=== PATIENT | male | born 1950 | race Caucasian/White ===

== ENCOUNTER → 2016-07-27 | Outpatient (REF) | payer BC, MEDICARE ==
[~2016-07-27] MED LIST: ASPI325T PO; DOCU10ELUD PO; FURO20TA2 PO; LOSA50TA20 PO; METF850T PO; NORCOTAB PO; motrin
[2016-07-27 12:12] LABS: ALBUMIN 3.6 GM/DL (3.2-5.2); ALBUMIN/GLOBULIN RATIO 1.13 (1.00-1.93); ALKALINE PHOSPHATASE 61 U/L (45-117); ALT/SGPT 14 U/L (12-78); ANION GAP 9 MEQ/L (8-16); AST/SGOT 12 U/L (15-37); BILIRUBIN,TOTAL 0.6 MG/DL (0.2-1.0); BLOOD UREA NITROGEN 19 MG/DL (7-18); CALCIUM LEVEL 8.8 MG/DL (8.8-10.2); CARBON DIOXIDE LEVEL 28 MEQ/L (21-32); CHLORIDE LEVEL 104 MEQ/L (98-107); CHOLESTEROL LEVEL 137 MG/DL (<200); CREATININE FOR GFR 1.25 MG/DL (0.70-1.30); FREE T4 0.99 NG/DL (0.76-1.46); GLOMERULAR FILTRATION RATE > 60.0 (>49); GLUCOSE, FASTING 126 MG/DL (80-110); POTASSIUM SERUM 4.5 MEQ/L (3.5-5.1); SODIUM LEVEL 141 MEQ/L (136-145); TOTAL PROTEIN 6.8 GM/DL (6.4-8.2); TRIGLYCERIDES LEVEL 104 MG/DL (<150)
== END ==
LOC: M LABDRAW1 11:19
PROVIDERS: ATTEND Emergency Medicine
DX: I10 Essential (primary) hypertension (principal); E11.9 Type 2 diabetes mellitus without complications

== ENCOUNTER → 2016-09-13 | Outpatient (REF) | payer MEDICARE | LOC: M LAB REF 09:52 | PROVIDERS: ATTEND Physician Assistant | DX: R39.89 Other symptoms and signs involving the genitourinary system (principal) ==

== ENCOUNTER → 2016-09-21 | Day surgery (SDC) | payer MEDICARE ==
[~2016-09-21] MED LIST changes: +ACETAMINOPHEN 325 MG TAB PO PRN; +AcetaZOLAMIDE 500 MG ER CAP PO ONE; +BAYE1TAB PO; +BSS with VANC/TOB/EPI for EYE CASES IR ONE; +CYCLOPENTOLATE 2% OPHTH SOLN 2ML BTL OD ONE; +D5W/0.2% SODIUM CHLORIDE 1,000 ML IV SCH; +D5W/0.2% SODIUM CHLORIDE 250 ML IV ONE; +GLIM2TAB PO; +HEALON DUET (HEALON 10MG/ML 0.55ML & HEALON ENDOCOAT 30MG/ML 0.85ML) As Ordered ONE; +KETOROLAC 0.5% OPHTH SOLN OD ONE; +LASI20TA PO; +LIDOCAINE 1% SDV 5 ML VIAL As Ordered ONE; +LIDOCAINE 4% INJ 5 ML AMP OU ONE; +LOSA50TA21 PO; +METF1000 PO; +MIDAZOLAM INJ 2 MG/2 ML VIAL (J2250) As Ordered ONE; +MOXIFLOXACIN IN BSS 0.25MG/0.25ML INTRACAMERAL INJ (OR EYE ONLY)(J2280) As Ordered ONE; +OFLOXACIN 0.3 % (OCUFLOX) OPTH SOL 5ML OD ONE; +ONDANSETRON 4MG/2ML VIAL (J2405) IV PRN; +PHENYLEPHRINE 2.5% OPHTH SOL 2ML OD ONE; +POVIDONE-IODINE 5% OPHTH PREP SOL 30ML As Ordered ONE; +PROPARACAINE 0.5% OPHTH SOL 15ML OD PRN; +SMZ-800T PO; +TRIAMCINOLONE PRES FR 40 MG/ML 1ML(TRIESENCE)(OR EYE ONLY)(J3300 PER 1MG) As Ordered ONE; +TRIMETHOBENZAMIDE 300 MG CAP PO PRN; +TROPICAMIDE 1% OPHTH SOLN 2ML OD ONE; +fentaNYL 100 MCG/2 ML INJECTION (J3010) As Ordered ONE
[2016-09-21 11:45] VITALS: BP 118/74
== END | disposition home or self-care (01) ==
LOC: M SDC 09:12
PROVIDERS: ATTEND Ophthalmology
DX: H26.9 Unspecified cataract (principal); I10 Essential (primary) hypertension; E11.9 Type 2 diabetes mellitus without complications; E66.9 Obesity, unspecified; Z87.891 Personal history of nicotine dependence; Z79.82 Long term (current) use of aspirin; Z79.899 Other long term (current) drug therapy
CPT/HCPCS: 66984; 67515; J2250; J2280; J3010; J3300; V2632

== ENCOUNTER → 2016-09-30 | Day surgery (SDC) | payer MEDICARE ==
[~2016-09-30] VITALS: Ht 188 cm; Wt 126.6 kg
[~2016-09-30] MED LIST changes: -CYCLOPENTOLATE 2% OPHTH SOLN 2ML BTL OD ONE; +CYCLOPENTOLATE 2% OPHTH SOLN 2ML BTL OS ONE; -D5W/0.2% SODIUM CHLORIDE 1,000 ML IV SCH; -KETOROLAC 0.5% OPHTH SOLN OD ONE; +KETOROLAC 0.5% OPHTH SOLN OS ONE; +LR 1,000 ML IV SCH; -OFLOXACIN 0.3 % (OCUFLOX) OPTH SOL 5ML OD ONE; +OFLOXACIN 0.3 % (OCUFLOX) OPTH SOL 5ML OS ONE; -ONDANSETRON 4MG/2ML VIAL (J2405) IV PRN; -PHENYLEPHRINE 2.5% OPHTH SOL 2ML OD ONE; +PHENYLEPHRINE 2.5% OPHTH SOL 2ML OS ONE; -PROPARACAINE 0.5% OPHTH SOL 15ML OD PRN; +PROPARACAINE 0.5% OPHTH SOL 15ML OS PRN; -TROPICAMIDE 1% OPHTH SOLN 2ML OD ONE; +TROPICAMIDE 1% OPHTH SOLN 2ML OS ONE
[2016-09-30 10:45] VITALS: BP 123/74
== END | disposition home or self-care (01) ==
LOC: M SDC 08:00
PROVIDERS: ATTEND Ophthalmology
DX: H26.9 Unspecified cataract (principal); E11.40 Type 2 diabetes mellitus with diabetic neuropathy, unspecified; I10 Essential (primary) hypertension; E66.9 Obesity, unspecified; R60.0 Localized edema; I83.11 Varicose veins of right lower extremity with inflammation; M17.0 Bilateral primary osteoarthritis of knee; N52.9 Male erectile dysfunction, unspecified; E05.90 Thyrotoxicosis, unspecified without thyrotoxic crisis or storm; R31.9 Hematuria, unspecified; R20.2 Paresthesia of skin; L84 Corns and callosities; M20.40 Other hammer toe(s) (acquired), unspecified foot; B35.1 Tinea unguium; Z79.899 Other long term (current) drug therapy; Z79.82 Long term (current) use of aspirin; Z87.440 Personal history of urinary (tract) infections; Z87.891 Personal history of nicotine dependence
CPT/HCPCS: 66984; J2250; J2280; J3010; J3300; V2632

== ENCOUNTER → 2017-01-28 | Outpatient (REF) | payer MEDICARE ==
[~2017-01-28] MED LIST changes: -ACETAMINOPHEN 325 MG TAB PO PRN; -AcetaZOLAMIDE 500 MG ER CAP PO ONE; -BSS with VANC/TOB/EPI for EYE CASES IR ONE; -CYCLOPENTOLATE 2% OPHTH SOLN 2ML BTL OS ONE; -D5W/0.2% SODIUM CHLORIDE 250 ML IV ONE; -HEALON DUET (HEALON 10MG/ML 0.55ML & HEALON ENDOCOAT 30MG/ML 0.85ML) As Ordered ONE; -KETOROLAC 0.5% OPHTH SOLN OS ONE; -LIDOCAINE 1% SDV 5 ML VIAL As Ordered ONE; -LIDOCAINE 4% INJ 5 ML AMP OU ONE; -LOSA50TA21 PO; +LOSA50TA5 PO; -LR 1,000 ML IV SCH; -METF1000 PO; +METF10004 PO; -MIDAZOLAM INJ 2 MG/2 ML VIAL (J2250) As Ordered ONE; -MOXIFLOXACIN IN BSS 0.25MG/0.25ML INTRACAMERAL INJ (OR EYE ONLY)(J2280) As Ordered ONE; -OFLOXACIN 0.3 % (OCUFLOX) OPTH SOL 5ML OS ONE; -PHENYLEPHRINE 2.5% OPHTH SOL 2ML OS ONE; -POVIDONE-IODINE 5% OPHTH PREP SOL 30ML As Ordered ONE; -PROPARACAINE 0.5% OPHTH SOL 15ML OS PRN; -SMZ-800T PO; +SULF1TAB23 PO; -TRIAMCINOLONE PRES FR 40 MG/ML 1ML(TRIESENCE)(OR EYE ONLY)(J3300 PER 1MG) As Ordered ONE; -TRIMETHOBENZAMIDE 300 MG CAP PO PRN; -TROPICAMIDE 1% OPHTH SOLN 2ML OS ONE; -fentaNYL 100 MCG/2 ML INJECTION (J3010) As Ordered ONE
[2017-01-28 11:29] LABS: ALBUMIN 3.6 GM/DL (3.2-5.2); ALBUMIN/GLOBULIN RATIO 1.03 (1.00-1.93); BILIRUBIN,TOTAL 0.6 MG/DL (0.2-1.0); CALCIUM LEVEL 9.1 MG/DL (8.8-10.2); CREATININE FOR GFR 1.29 MG/DL (0.70-1.30); GLOMERULAR FILTRATION RATE 59.1 (>49); POTASSIUM SERUM 4.4 MEQ/L (3.5-5.1); TOTAL PROTEIN 7.1 GM/DL (6.4-8.2)
== END ==
LOC: M LABDRAW1 10:30
PROVIDERS: ATTEND Emergency Medicine
DX: I10 Essential (primary) hypertension (principal); E11.9 Type 2 diabetes mellitus without complications

== ENCOUNTER → 2017-07-30 | Outpatient (REF) | payer MEDICARE ==
[2017-07-30 10:59] LABS: ESTIMATED AVERAGE GLUCOSE 157 MG/DL (60-110); HEMOGLOBIN A1c 7.1 %
[2017-07-30 11:16] LABS: ALBUMIN 3.5 GM/DL (3.2-5.2); ALBUMIN/GLOBULIN RATIO 0.97 (1.00-1.93); ALKALINE PHOSPHATASE 69 U/L (45-117); ALT/SGPT 16 U/L (12-78); ANION GAP 7 MEQ/L (8-16); AST/SGOT 16 U/L (7-37); BILIRUBIN,TOTAL 0.7 MG/DL (0.2-1.0); BLOOD UREA NITROGEN 19 MG/DL (7-18); CALCIUM LEVEL 8.8 MG/DL (8.8-10.2); CARBON DIOXIDE LEVEL 28 MEQ/L (21-32); CHLORIDE LEVEL 105 MEQ/L (98-107); CHOLESTEROL LEVEL 137 MG/DL (<200); CHOLESTEROL RISK RATIO 4.892 (<5); FREE T4 1.06 NG/DL (0.76-1.46); GLOMERULAR FILTRATION RATE 58.6 (>49); GLUCOSE, FASTING 137 MG/DL (70-100); HDL CHOLESTEROL 28 MG/DL (>40); NON-HDL-C 109 MG/DL; POTASSIUM SERUM 4.4 MEQ/L (3.5-5.1); SODIUM LEVEL 140 MEQ/L (136-145); TOTAL PROTEIN 7.1 GM/DL (6.4-8.2); TRIGLYCERIDES LEVEL 135 MG/DL (<150)
[2017-07-30 11:33] LABS: MALB URINE SIEMENS 29.3 MG/L
== END ==
LOC: M LABDRAW1 08:11
DX: E11.40 Type 2 diabetes mellitus with diabetic neuropathy, unspecified (principal); I10 Essential (primary) hypertension
CPT/HCPCS: 84443

== ENCOUNTER → 2018-01-31 | Outpatient (REF) | payer MEDICARE ==
[2018-01-31 14:01] LABS: ALKALINE PHOSPHATASE 61 U/L (45-117); ALT/SGPT 20 U/L (12-78); ANION GAP 7 MEQ/L (8-16); AST/SGOT 16 U/L (7-37); BILIRUBIN,TOTAL 0.5 MG/DL (0.2-1.0); BLOOD UREA NITROGEN 19 MG/DL (7-18); CALCIUM LEVEL 8.8 MG/DL (8.8-10.2); CARBON DIOXIDE LEVEL 29 MEQ/L (21-32); CHLORIDE LEVEL 104 MEQ/L (98-107); CREATININE FOR GFR 1.26 MG/DL (0.70-1.30); GLOMERULAR FILTRATION RATE > 60.0 (>49); GLUCOSE, FASTING 144 MG/DL (70-100); POTASSIUM SERUM 4.8 MEQ/L (3.5-5.1); SODIUM LEVEL 140 MEQ/L (136-145); TRIGLYCERIDES LEVEL 123 MG/DL (<150)
[2018-01-31 14:02] LABS: ALBUMIN 3.4 GM/DL (3.2-5.2); ALBUMIN/GLOBULIN RATIO 0.94 (1.00-1.93); CHOLESTEROL LEVEL 157 MG/DL (<200); CHOLESTEROL RISK RATIO 4.361 (<5); HDL CHOLESTEROL 36 MG/DL (>40); LDL CHOLESTEROL 96 MG/DL (<100); NON-HDL-C 121 MG/DL
[2018-01-31 14:11] LABS: ESTIMATED AVERAGE GLUCOSE 154 MG/DL (60-110)
== END ==
LOC: M LABDRAW1 12:14
DX: E11.9 Type 2 diabetes mellitus without complications (principal); I10 Essential (primary) hypertension
CPT/HCPCS: 80053

== ENCOUNTER → 2018-08-03 | Outpatient (REF) | payer MEDICARE ==
[~2018-08-03] MED LIST changes: -DOCU10ELUD PO; +DOCU5LIQ PO; -LASI20TA PO; +LASI20TA3 PO; +LOSA50TA88 PO; -SULF1TAB23 PO; +SULF1TAB93 PO
[2018-08-03 13:20] LABS: ALBUMIN 3.5 GM/DL (3.2-5.2); ALT/SGPT 16 U/L (12-78); BILIRUBIN,TOTAL 0.5 MG/DL (0.2-1.0); BLOOD UREA NITROGEN 21 MG/DL (7-18); CALCIUM LEVEL 8.6 MG/DL (8.8-10.2); CARBON DIOXIDE LEVEL 25 MEQ/L (21-32); CHLORIDE LEVEL 102 MEQ/L (98-107); CHOLESTEROL LEVEL 135 MG/DL (<200); CREATININE FOR GFR 1.13 MG/DL (0.70-1.30); FREE T4 1.09 NG/DL (0.76-1.46); GLOMERULAR FILTRATION RATE > 60.0 (>49); GLUCOSE, FASTING 132 MG/DL (70-100); HDL CHOLESTEROL 30 MG/DL (>40); LDL CHOLESTEROL 85 MG/DL (<100); NON-HDL-C 105 MG/DL; POTASSIUM SERUM 4.4 MEQ/L (3.5-5.1); SODIUM LEVEL 136 MEQ/L (136-145); TOTAL PROTEIN 7.1 GM/DL (6.4-8.2); TRIGLYCERIDES LEVEL 99 MG/DL (<150)
[2018-08-03 15:10] LABS: HEMOGLOBIN A1c 7.5 %
== END ==
LOC: M LABDRAW1 11:34
PROVIDERS: ATTEND Emergency Medicine
DX: E11.40 Type 2 diabetes mellitus with diabetic neuropathy, unspecified (principal); I10 Essential (primary) hypertension

== ENCOUNTER → 2018-08-04 | Outpatient (REF) | payer MEDICARE ==
[2018-08-04 14:22] LABS: CREATININE, URINE 87.9 MG/DL; MALB URINE SIEMENS 32.5 MG/L; MAU/CREAT RATIO 36.9 MCG/MG (0.0-30.0)
== END ==
LOC: M LAB REF 12:56
PROVIDERS: ATTEND Emergency Medicine
DX: E11.40 Type 2 diabetes mellitus with diabetic neuropathy, unspecified (principal); I10 Essential (primary) hypertension; Z00.00 Encounter for general adult medical examination without abnormal findings

== ENCOUNTER → 2019-02-02 | Outpatient (REF) | payer OTHER ==
[2019-02-02 12:18] LABS: ALBUMIN 3.5 GM/DL (3.2-5.2); BILIRUBIN,TOTAL 0.4 MG/DL (0.2-1.0); CALCIUM LEVEL 9.3 MG/DL (8.8-10.2); CREATININE FOR GFR 1.27 MG/DL (0.70-1.30); FREE T4 0.97 NG/DL (0.76-1.46); GLOMERULAR FILTRATION RATE 59.9 (>49); POTASSIUM SERUM 4.5 MEQ/L (3.5-5.1); THYROID STIMULATING HORMONE 1.87 uIU/ML (0.358-3.740); TOTAL PROTEIN 7.4 GM/DL (6.4-8.2)
[2019-02-02 13:13] LABS: HEMOGLOBIN A1c 6.9 %
== END ==
LOC: M LABDRAW1 10:36
PROVIDERS: ATTEND Physician Assistant
DX: E05.90 Thyrotoxicosis, unspecified without thyrotoxic crisis or storm (principal); E11.40 Type 2 diabetes mellitus with diabetic neuropathy, unspecified

== ENCOUNTER → 2019-09-21 | Outpatient (CLI) | payer OTHER ==
[~2019-09-21] MED LIST changes: -GLIM2TAB PO; +GLIM2TAB4 PO
[2019-09-21 13:01] LABS: ALBUMIN 3.4 GM/DL (3.2-5.2); ALT/SGPT 15 U/L (12-78); BILIRUBIN,TOTAL 1.1 MG/DL (0.2-1.0); BLOOD UREA NITROGEN 19 MG/DL (7-18); CALCIUM LEVEL 8.7 MG/DL (8.8-10.2); CARBON DIOXIDE LEVEL 26 MEQ/L (21-32); CHLORIDE LEVEL 104 MEQ/L (98-107); CHOLESTEROL LEVEL 148 MG/DL (<200); CHOLESTEROL RISK RATIO 4.774 (<5); CREATININE FOR GFR 1.22 MG/DL (0.70-1.30); GLOMERULAR FILTRATION RATE > 60.0 (>42); GLUCOSE, FASTING 157 MG/DL (70-100); HDL CHOLESTEROL 31 MG/DL (>40); LDL CHOLESTEROL 95 MG/DL (<100); NON-HDL-C 117 MG/DL; POTASSIUM SERUM 4.4 MEQ/L (3.5-5.1); SODIUM LEVEL 138 MEQ/L (136-145); TOTAL PROTEIN 7.2 GM/DL (6.4-8.2); TRIGLYCERIDES LEVEL 110 MG/DL (<150)
[2019-09-21 13:07] LABS: MALB URINE SIEMENS 23.4 MG/L; MAU/CREAT RATIO 18.8 MCG/MG (0.0-30.0)
[2019-09-21 13:33] LABS: HEMOGLOBIN A1c 7.3 %
== END ==
LOC: M WUC 08:56
PROVIDERS: ATTEND Physician Assistant
DX: E11.40 Type 2 diabetes mellitus with diabetic neuropathy, unspecified (principal); I10 Essential (primary) hypertension; E05.90 Thyrotoxicosis, unspecified without thyrotoxic crisis or storm

== ENCOUNTER → 2020-03-12 | Outpatient (CLI) | payer OTHER ==
[2020-03-12 11:03] LABS: HEMOGLOBIN A1c 7.8 %
[2020-03-12 11:12] LABS: ALBUMIN 3.5 GM/DL (3.2-5.2); ALT/SGPT 12 U/L (12-78); BILIRUBIN,TOTAL 0.5 MG/DL (0.2-1.0); BLOOD UREA NITROGEN 18 MG/DL (7-18); CALCIUM LEVEL 9.5 MG/DL (8.8-10.2); CARBON DIOXIDE LEVEL 27 MEQ/L (21-32); CHLORIDE LEVEL 104 MEQ/L (98-107); CREATININE FOR GFR 1.25 MG/DL (0.70-1.30); GLOMERULAR FILTRATION RATE > 60.0 (>42); GLUCOSE, FASTING 174 MG/DL (70-100); POTASSIUM SERUM 4.5 MEQ/L (3.5-5.1); SODIUM LEVEL 139 MEQ/L (136-145); TOTAL PROTEIN 7.4 GM/DL (6.4-8.2)
== END ==
LOC: M PLALAB 08:20
PROVIDERS: ATTEND Physician Assistant
DX: E11.40 Type 2 diabetes mellitus with diabetic neuropathy, unspecified (principal)

== ENCOUNTER → 2020-09-18 | Outpatient (REF) | payer OTHER ==
[~2020-09-18] MED LIST changes: +BACTDSTA PO; -SULF1TAB93 PO
[2020-09-18 11:20] LABS: HEMOGLOBIN A1c 7.5 %
[2020-09-18 11:26] LABS: ALBUMIN 3.1 GM/DL (3.2-5.2); ALT/SGPT 10 U/L (12-78); BILIRUBIN,TOTAL 0.5 MG/DL (0.2-1.0); BLOOD UREA NITROGEN 18 MG/DL (7-18); CALCIUM LEVEL 9.3 MG/DL (8.8-10.2); CARBON DIOXIDE LEVEL 28 MEQ/L (21-32); CHLORIDE LEVEL 105 MEQ/L (98-107); CHOLESTEROL LEVEL 132 MG/DL (<200); CHOLESTEROL RISK RATIO 3.567 (<5); CREATININE FOR GFR 1.07 MG/DL (0.70-1.30); GLOMERULAR FILTRATION RATE > 60.0 (>42); GLUCOSE, FASTING 172 MG/DL (70-100); HDL CHOLESTEROL 37 MG/DL (>40); LDL CHOLESTEROL 76 MG/DL (<100); NON-HDL-C 95 MG/DL; POTASSIUM SERUM 4.6 MEQ/L (3.5-5.1); SODIUM LEVEL 139 MEQ/L (136-145); TOTAL PROTEIN 7.4 GM/DL (6.4-8.2); TRIGLYCERIDES LEVEL 94 MG/DL (<150)
[2020-09-18 18:09] LABS: MALB URINE SIEMENS 28.8 MG/L; MAU/CREAT RATIO 23.6 MCG/MG (0.0-30.0)
== END ==
LOC: M PLALAB 09:48
PROVIDERS: ATTEND Nurse Practitioner Family
DX: E11.40 Type 2 diabetes mellitus with diabetic neuropathy, unspecified (principal)

== ENCOUNTER 2020-12-15 22:12 | Emergency (ER) | payer OTHER ==
[~2020-12-15] VITALS: Ht 188 cm; Wt 100.0 kg
[2020-12-15] MEDS ORDERED: OXYC1TAB23 PO (22:24)
[2020-12-15] MEDS ORDERED: MORPHINE 4 MG/ML 1ML VIAL/SYRINGE (J2270) IV PRN (23:20)
[2020-12-15] MEDS ORDERED: ONDANSETRON 4MG/2ML VIAL IV ONE (23:20)
--- NOTE | 2020-12-16 00:18 | REPVR ---
PROCEDURE INFORMATION: Exam: XR Left Forearm Exam date and time: 12/15/2020 11:43 PM Age: 70 years old Clinical indication: Lower or forearm; Left; Patient HX: [place] pop, pain; Additional info: Chest pain TECHNIQUE: Imaging protocol: XR Left forearm. Views: 2 views. COMPARISON: No relevant prior studies available. FINDINGS: Bones/joints: Bones are aligned normally. No fracture, bone lesion or osteochondral abnormality. Mild degenerative osteoarthrosis changes in the elbow and wrist articulations. Soft tissues: No apparent focal soft tissue swelling. No opaque foreign body. IMPRESSION: 1. No acute traumatic osseous process or focal soft tissue swelling. 2. 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
[2020-12-16 00:20] LABS: BASO % 0.2 % (0.0-1.0); EOS % 0.2 % (0.0-3.0); HEMATOCRIT 33.8 % (42.0-52.0); HEMOGLOBIN 10.9 g/dl (13.5-17.5); LYMPH # 1.1 10^3/uL (1.5-5.0); LYMPH % 9.6 % (24.0-44.0); MEAN CORPUSCULAR HEMOGLOBIN 28.8 pg (27.0-33.0); MEAN CORPUSCULAR HGB CONC 32.2 g/dl (32.0-36.5); MEAN CORPUSCULAR VOLUME 89.4 fl (80.0-96.0); MONO # 0.8 10^3/uL (0.0-0.8); MONO % 7.2 % (2.0-8.0); NEUTROPHILS # 9.6 10^3/uL (1.5-8.5); NEUTROPHILS % 81.6 % (36.0-66.0); PLATELET COUNT, AUTOMATED 376 10^3/uL (150-450); RED BLOOD COUNT 3.78 10^6/uL (4.30-6.10); WHITE BLOOD COUNT 11.7 10^3/uL (4.0-10.0)
--- NOTE | 2020-12-16 00:20 | REPVR ---
PROCEDURE INFORMATION: Exam: XR Chest Exam date and time: 12/15/2020 11:43 PM Age: 70 years old Clinical indication: Radiating; Patient HX: Arm pain into chest area; Additional info: Chest pain TECHNIQUE: Imaging protocol: XR of the chest. Views: 1 view. COMPARISON: CR Humerus LEFT 12/15/2020 11:14 PM FINDINGS: Lungs: Degree of lung inflation is normal. No evidence of pulmonary edema. No focal consolidation or parenchymal lung mass. Pleural spaces: No pleural effusion or pneumothorax. Heart/Mediastinum: Cardiac silhouette appears normal. No adenopathy or hilar mass. Vasculature: Aorta appears tortuous Bones/joints: Osseous structures show no concerning abnormality. IMPRESSION: No acute or focal cardiopulmonary process. Electronically signed by: Ronak Ng On 12/16/2020 00:19:53 AM
--- NOTE | 2020-12-16 00:24 | REPVR ---
PROCEDURE INFORMATION: Exam: XR Left Humerus Exam date and time: 12/15/2020 11:43 PM Age: 70 years old Clinical indication: Pain; Upper arm; Left; Additional info: Chest pain TECHNIQUE: Imaging protocol: XR Left humerus. Views: 2 or more views. COMPARISON: No relevant prior studies available. FINDINGS: Bones/joints: Ill-defined permeative mid diaphyseal lesion of the left humerus measuring roughly 10 cm in length, with thinning and erosion of the cortex particularly laterally and posterior, with mid diaphyseal perhaps incomplete transverse pathologic fracture. Humeral head and neck and the distal humerus from the metaphysis to the elbow joint appear normal Soft tissues: No focal soft tissue defect or discernible focal soft tissue swelling. IMPRESSION: Slightly expansile, erosive, permeative, roughly 10 cm long axis mid diaphyseal lesion of the left humerus with cortical erosion and mid diaphyseal nondisplaced or incomplete pathologic fracture. In this age group, a metastatic lesion would be considered most likely. Primary neoplasm is also within the differential diagnosis. Findings were discussed by telephone with CLARKE Cabello on 12/16/2020 12:23 AM EDT, to expedite further management. Electronically signed by: Ronak Ng On 12/16/2020 00:23:54 AM
[2020-12-16 00:31] LABS: BLOOD UREA NITROGEN 23 MG/DL (7-18); CALCIUM LEVEL 8.5 MG/DL (8.8-10.2); CARBON DIOXIDE LEVEL 21 MEQ/L (21-32); CHLORIDE LEVEL 103 MEQ/L (98-107); CK-MB VALUE MASS 1.3 NG/ML (<3.6); CPK CREATINE PHOSPHOKINASE 80 U/L (39-308); CREATININE FOR GFR 1.09 MG/DL (0.70-1.30); GLOMERULAR FILTRATION RATE > 60.0 (>42); GLUCOSE, FASTING 358 MG/DL (70-100); MB/CK RELATIVE INDEX 1.62 (< OR =4); SODIUM LEVEL 136 MEQ/L (136-145); TROPONIN I < 0.02 NG/ML (< 0.10)
[2020-12-16] MEDS ORDERED: ISOVUE-370 76% 100ML VIAL As Ordered ONE (01:52)
--- NOTE | 2020-12-16 02:55 | REPVR ---
PROCEDURE INFORMATION: Exam: CTA Chest With Contrast Exam date and time: 12/16/2020 2:37 AM Age: 70 years old Clinical indication: Pain; Other: Chest; Additional info: Chest pain, SOB, bone mets found on xray TECHNIQUE: Imaging protocol: Computed tomographic angiography of the chest with contrast. 3D rendering (Not supervised by radiologist): MIP and/or 3D reconstructed images were created by the technologist. Radiation optimization: All CT scans at this facility use at least one of these dose optimization techniques: automated exposure control; mA and/or kV adjustment per patient size (includes targeted exams where dose is matched to clinical indication); or iterative reconstruction. Contrast material: ISOVUE 370; Contrast volume: 100 ml; Contrast route: INTRAVENOUS (IV); COMPARISON: CR PORTABLE CHEST X-RAY 12/15/2020 11:25 PM FINDINGS: Pulmonary arteries: No focal pulmonary artery filling defect to suggest acute pulmonary embolus. Aorta: Thoracic aorta is ectatic and atherosclerotic. No focal aneurysm or dissection. Lungs: Pulmonary vascular/interstitial pattern does not suggest active pulmonary edema. No suspicious lung mass or air space process. Scarring at the anterior right lung base image 148 without convincing masslike component; No central endobronchial lesion. Areas of scarring in the right lung are seen peripherally. Pleural spaces: No pleural effusion or pneumothorax. Heart: No overt cardiac enlargement or abnormal volume of pericardial fluid. Lymph nodes: No enlarged mediastinal lymph nodes. Bones/joints: Permeative lytic lesion involving the left humerus is present. Multiple permeative rib lesions are present particularly involving the left 4th and 7th ribs, and there is a mixed lytic and sclerotic lesion involving the upper sternum. In addition, there is a destructive lesion involving the T5 vertebral body and posterior elements with extension into the spinal canal. Soft tissues: Unremarkable. IMPRESSION: 1. No evidence of acute pulmonary embolus or aortic dissection. 2. Multifocal osteolytic metastases involving ribs, left humerus, sternum, and complex T5 vertebral lesion extending into the posterior elements and spinal canal. MRI of the thoracic spine is suggested to evaluate for spinal cord impingement given the appearance 3. No evidence of a primary lung malignancy Electronically signed by: Ronak Ng On 12/16/2020 02:55:20 AM
--- NOTE | 2020-12-16 03:00 | REPVR ---
PROCEDURE INFORMATION: Exam: CT Abdomen And Pelvis With Contrast Exam date and time: 12/16/2020 2:37 AM Age: 70 years old Clinical indication: Abnormal findings; Abnormal radiologic finding of the abdomen; Radiologic exam and body structure: Possible bone mets found on xray; Prior surgery; Additional info: Chest pain, SOB, bone mets found on xray TECHNIQUE: Imaging protocol: Computed tomography of the abdomen and pelvis with contrast. Radiation optimization: All CT scans at this facility use at least one of these dose optimization techniques: automated exposure control; mA and/or kV adjustment per patient size (includes targeted exams where dose is matched to clinical indication); or iterative reconstruction. Contrast material: ISOVUE 370; Contrast volume: 100 ml; Contrast route: INTRAVENOUS (IV); COMPARISON: CR PORTABLE CHEST X-RAY 12/15/2020 11:25 PM FINDINGS: Liver: Liver appears normal with no focal abnormality. Gallbladder and bile ducts: Gallbladder is present and shows no evidence of gallstone. Pancreas: Pancreas appears normal. No focal mass or peripancreatic inflammation. Spleen: Spleen appears homogeneous without focal mass aside from an inferior right lobe cyst or hemangioma measuring 7 mm. Adrenal glands: Adrenal glands are normal in appearance. Kidneys and ureters: Kidneys are unremarkable aside from simple fluid density cysts measuring up to 5 cm. Stomach and bowel: No evidence of small bowel obstruction. Postsurgical changes of the proximal colon are present without obstruction. Diverticular changes are present within the colon without inflammation. There may be subtle eccentric wall thickening involving the left side of the sigmoid colon, axial image 130-132, sagittal image 76-78 and coronal image 82-83. Intraperitoneal space: No pneumoperitoneum. Vasculature: Atherosclerotic change present in the aorta, without aneurysm. Main portal and splenic veins enhance normally. Lymph nodes: No enlarged lymph nodes. No abnormal pelvic sidewall lymph nodes. Urinary bladder: Urinary bladder appears normal. Reproductive: Prostate gland is diffusely enlarged. Bones/joints: 2 cm sclerotic lesion within the right femoral neck is present, indeterminate. No concerning lumbar spine or other pelvic osseous lesion. Lumbar spine degenerative changes are present at multiple levels Soft tissues: Lower abdominal periumbilical scarring is present. No focal fluid collection. IMPRESSION: 1. Possible eccentric wall thickening involving the sigmoid colon to the left of midline. I cannot exclude a nonobstructive mass at this level. 2. No solid organ metastases in the abdomen and pelvis. 3. Indeterminate sclerotic 2 cm right femoral neck lesion Electronically signed by: Ronak Ng On 12/16/2020 03:00:29 AM
[2020-12-16] MEDS ORDERED: MORPHINE 4 MG/ML 1ML VIAL/SYRINGE (J2270) IV ONE (04:20)
[2020-12-16] MEDS ORDERED: OXYCODONE/APAP 5MG/325MG(BULK FOR ED) 1 TABLET PO ONE (04:20)
[2020-12-16 04:45] VITALS: BP 122/80
--- NOTE | 2020-12-16 17:11 | ECGEPIP ---
[facility] - ED Test Date: 2020-12-15 Pat Name: JENA SALAZAR Department: Room: - Gender: Male [employer]: violet : 1950 Requested By: CLARKE Layton Order Number: [id number] Reading MD: Marcus Giles Measurements Intervals [place] Rate: 116 P: 61 NV: 146 QRS: 20 QRSD: 90 T: 46 QT: 324 QTc: 450 Interpretive Statements Sinus tachycardia Comparison tracing not on file Electronically Signed on 12-16-2020 17:11:42 EDT by Marcus Giles
== END 2020-12-16 04:56 | disposition home or self-care (01) ==
LOC: M ED 22:12
DX: M84.422A Pathological fracture, left humerus, initial encounter for fracture (principal); C79.51 Secondary malignant neoplasm of bone; N40.0 Benign prostatic hyperplasia without lower urinary tract symptoms; R93.3 Abnormal findings on diagnostic imaging of other parts of digestive tract; R00.0 Tachycardia, unspecified; E11.9 Type 2 diabetes mellitus without complications; Z79.82 Long term (current) use of aspirin; Z79.84 Long term (current) use of oral hypoglycemic drugs; Z79.899 Other long term (current) drug therapy
CPT/HCPCS: 71045; 71275; 73060; 73090; 74177; 80048; 82550; 82553; 84484; 85025; 93005; 93041; 94760; 96374; 96375; 96376; 99285; G0103; J2270; J2405; Q9967

== ENCOUNTER → 2021-01-11 | Outpatient (CLI) | payer OTHER ==
[~2021-01-11] MED LIST changes: +ASPI-1 PO; +HYDR-3716 PO; +LATA0.0015 OU; +OXYC1TAB23 PO
== END ==
LOC: M LABSMTC 10:52
PROVIDERS: ATTEND Orthopaedic Surgery
DX: Z01.812 Encounter for preprocedural laboratory examination (principal); Z20.822 Contact with and (suspected) exposure to COVID-19

== ENCOUNTER 2021-01-12 12:08 | Inpatient (IN) | payer OTHER ==
[~2021-01-12] VITALS: Ht 193 cm; Wt 126.8 kg
[~2021-01-12 12:08] MED LIST changes: -ASPI-1 PO; -HYDR-3716 PO; -LATA0.0015 OU
[2021-01-12 12:53] LABS: BASO # 0.1 10^3/uL (0.0-0.2); BASO % 0.4 % (0.0-1.0); EOS # 0.1 10^3/uL (0.0-0.5); EOS % 0.3 % (0.0-3.0); HEMOGLOBIN 11.3 g/dl (13.5-17.5); LYMPH # 1.3 10^3/uL (1.5-5.0); LYMPH % 6.5 % (24.0-44.0); MEAN CORPUSCULAR HEMOGLOBIN 27.9 pg (27.0-33.0); MEAN CORPUSCULAR HGB CONC 29.7 g/dl (32.0-36.5); MEAN CORPUSCULAR VOLUME 93.8 fl (80.0-96.0); MONO # 0.9 10^3/uL (0.0-0.8); MONO % 4.6 % (2.0-8.0); NEUTROPHILS # 16.7 10^3/uL (1.5-8.5); NEUTROPHILS % 85.1 % (36.0-66.0); PLATELET COUNT, AUTOMATED 547 10^3/uL (150-450); RED BLOOD COUNT 4.05 10^6/uL (4.30-6.10); WHITE BLOOD COUNT 19.6 10^3/uL (4.0-10.0)
[2021-01-12] MEDS ORDERED: NS 3,000 ML in IV 1 EA IV ONE (13:15)
--- NOTE | 2021-01-12 13:21 | REP ---
INDICATION: hypotension. COMPARISON: 12/15/2020. TECHNIQUE: Single portable AP view of the chest was performed. FINDINGS: There is no acute infiltrate or pulmonary edema. Lungs are clear. The heart is not significantly enlarged. The mediastinal silhouette is unremarkable. The visualized osseous structures are intact. IMPRESSION: No acute pulmonary disease. <Electronically signed by Denis Henao > 01/12/21 [id number]
[2021-01-12] MEDS ORDERED: cefTRIAXone SOD 2 GM in D5W MINI-BAG PLUS 50 ML IV ONE (13:30)
[2021-01-12 13:35] LABS: ALT/SGPT 22 U/L (12-78); BLOOD UREA NITROGEN 21 MG/DL (7-18); CALCIUM LEVEL 9.4 MG/DL (8.8-10.2); CARBON DIOXIDE LEVEL 14 MEQ/L (21-32); CHLORIDE LEVEL 96 MEQ/L (98-107); CREATININE FOR GFR 1.83 MG/DL (0.70-1.30); GLUCOSE, FASTING 430 MG/DL (70-100); POTASSIUM SERUM 5.9 MEQ/L (3.5-5.1); SODIUM LEVEL 131 MEQ/L (136-145)
[2021-01-12 13:36] LABS: ALBUMIN 1.8 GM/DL (3.2-5.2); BILIRUBIN,DIRECT < 0.1 MG/DL (0.0-0.2); BILIRUBIN,TOTAL 0.6 MG/DL (0.2-1.0); CK-MB VALUE MASS 8.1 NG/ML (<3.6); CPK CREATINE PHOSPHOKINASE 885 U/L (39-308); FREE T4 1.54 NG/DL (0.76-1.46); MB/CK RELATIVE INDEX 0.92 (< OR =4); TOTAL PROTEIN 7.3 GM/DL (6.4-8.2); TROPONIN I < 0.02 NG/ML (< 0.10)
[2021-01-12] MEDS ORDERED: ACETAMINOPHEN TAB 650MG DOSE (2X325MG) PO ONE (13:40)
[2021-01-12 13:43] LABS: ABG BASE EXCESS -3.6 (-2.0-2.0); ABG HCO3 17.4 MEQ/L (22.0-26.0); ABG O2 SATURATION 98.7 % (95.0-99.0); ABG PARTIAL PRESSURE CO2 21.4 mmHg (35.0-45.0); ABG PARTIAL PRESSURE O2 104.4 mmHg (75.0-100.0); ABG STANDARD HCO3 21.5 MEQ/L (22.0-26.0); ABG pH (ARTERIAL) 7.527 UNITS (7.350-7.450)
[2021-01-12 13:57] LABS: ACETONE/KETONE 4.04 MG/DL (<2.81); LIPASE 82 U/L (73-393)
[2021-01-12] MEDS ORDERED: HumuLIN R (REGULAR) INSULIN (NovoLIN R) **100U/ML** PER UNIT IV ONE (14:10)
--- NOTE | 2021-01-12 14:54 | REP ---
INDICATION: weakness, hypotension. COMPARISON: 12/16/2020. TECHNIQUE: CT chest performed without the use of intravenous contrast. Sagittal and coronal reconstruction images are performed. FINDINGS: Lungs: Scattered fibrotic changes are again seen throughout the right lung. There is a nodular density in the right lower lobe on image 49 posteriorly 6 mm in diameter, unchanged. There is a 5 mm nodule on image 52 which is not seen on the prior study. There is a 4 mm nodule in the right lower lobe on image 57 not definitely seen on the prior study. There is a 4 mm nodule in the right lower lobe medially on image 64, unchanged. There is a 9 mm nodular density in the right middle lobe which is stable. Mild diffuse fibrotic changes in the left lung are stable. Mediastinum: No gross adenopathy. Ellen: No gross adenopathy. Axilla: No gross adenopathy. Pleura: No effusion. Heart: Not enlarged. Thoracic aorta: The ascending thoracic aorta is dilated up to 4.6 cm.. Upper abdominal structures: Grossly unremarkable. Visualized osseous structures: Ill-defined lucent lesions are seen suggesting metastases. These are visualized in the posterior right glenoid, inferomedial right scapula, sternum, and T5 vertebral body. There is moderate loss of height of the T5 vertebral body. The posterior elements of T5 are also involved. Lesions are also seen in the posterior right 3rd rib and left lateral 4th rib. IMPRESSION: Five subcentimeter nodules right lung. No gross adenopathy. Osseous metastatic lesions as discussed above. T5 vertebral body and posterior elements are involved, there is moderate loss of height of the T5 vertebral body, mildly increased compared to the prior study. <Electronically signed by Denis Henao > 01/12/21 [id number]
[2021-01-12] MEDS ORDERED: ASPI-1 PO (14:55)
--- NOTE | 2021-01-12 15:08 | REP ---
INDICATION: weakness, hypotension COMPARISON: 12/06/2020. TECHNIQUE: CT Scan of the abdomen and pelvis was performed without intravenous contrast. Sagittal and coronal reconstruction images performed. Study is limited by patient motion. FINDINGS: Lung bases: Unremarkable. Liver: A subcentimeter hypodensity in the inferior right lobe of the liver probably represents a cyst. Gallbladder: Unremarkable. Spleen: Grossly unremarkable. Adrenals: Normal. Pancreas: Grossly unremarkable.. Kidneys: Right renal cysts are unchanged, there is a punctate intrarenal calculus in the lower pole of the right kidney. There is no hydronephrosis. Small and large bowel: Grossly unremarkable. There is evidence of prior repair of anterior abdominal wall hernia. There is moderate fecal material throughout the colon, with sigmoid diverticulosis. Free fluid: None. Abdominal aorta: No aneurysm. Adenopathy: None. Appendix: Prior appendectomy. Osseous structures: An ill-defined sclerotic lesion in the proximal right femur may represent a metastatic lesion. This is not seen on the exam in 2011. There is an ill-defined metastatic lesion involving the L4 posterior elements.. Pelvis: No mass. No bladder calculus seen. IMPRESSION: An ill-defined sclerotic lesion in the proximal right femur may represent a metastatic lesion. This is not seen on the exam in 2011. There is an ill-defined metastatic lesion involving the L4 posterior elements.. <Electronically signed by Denis Henao > 01/12/21 [id number]
[2021-01-12] MEDS ORDERED: GLUCAGON INJ 1MG VIAL SC PRN (16:00)
[2021-01-12] MEDS ORDERED: GLUCOSE 4GM CHEW TABLET PO PRN (16:00)
[2021-01-12] MEDS ORDERED: DEXTROSE 50% 50 ML SYRINGE IV PRN (16:00)
[2021-01-12] MEDS ORDERED: HYDR-3716 PO (16:31)
[2021-01-12] MEDS ORDERED: LATA0.0015 OU (16:31)
[2021-01-12] MEDS ORDERED: HOME MED LIST COMPLETE! XX SCH (16:35)
[2021-01-12] MEDS: NS 0.45% 1,000 ML IV SCH ×2 (18:16→20:18)
[2021-01-12 18:21] LABS: TOTAL PROTEIN 5.9 GM/DL (6.4-8.2)
[2021-01-12 18:28] LABS: BLOOD UREA NITROGEN 22 MG/DL (7-18); CALCIUM LEVEL 8.4 MG/DL (8.8-10.2); CARBON DIOXIDE LEVEL 21 MEQ/L (21-32); CHLORIDE LEVEL 107 MEQ/L (98-107); CREATININE FOR GFR 1.24 MG/DL (0.70-1.30); GLOMERULAR FILTRATION RATE > 60.0 (>42); GLUCOSE, FASTING 125 MG/DL (70-100); POTASSIUM SERUM 3.8 MEQ/L (3.5-5.1); SODIUM LEVEL 141 MEQ/L (136-145)
[2021-01-12 18:31] LABS: APPEARANCE, URINE HAZY (CLEAR); BACTERIA, URINE AUTO NEGATIVE (NEGATIVE); BILIRUBIN, URINE AUTO NEGATIVE (NEGATIVE); BLOOD, URINE BLOOD 1+ (NEGATIVE); COLOR, URINE YELLOW (YELLOW); GLUCOSE, URINE (UA) AUTO 3+ mg/dL (NEGATIVE); KETONE, URINE AUTO NEGATIVE (NEGATIVE); LEUKOCYTE ESTERASE, URINE AUTO NEGATIVE (NEGATIVE); MUCUS, URINE MODERATE (NEGATIVE); NITRITE, URINE AUTO NEGATIVE (NEGATIVE); PROTEIN, URINE AUTO 1+ mg/dL (NEGATIVE); RBC, URINE AUTO 1 /HPF (0-3); SPECIFIC GRAVITY URINE AUTO 1.017 (1.002-1.035); SQUAMOUS EPITHELIAL CELL UR AU 0 /HPF (0-6); WBC, URINE AUTO 2 /HPF (0-3)
[2021-01-12 19:06] VITALS: BP 113/70
[2021-01-12 20:00] VITALS: BP 104/69
--- NOTE | 2021-01-12 20:13 | ECGEPIP ---
[facility] - ED Test Date: 2021-01-12 Pat Name: JENA SALAZAR Department: Room: - Gender: Male [place]: SERGIO : 1950 Requested By: Meredith Hernández Order Number: [id number] Reading MD: Meredith Hernández Measurements Intervals [place] Rate: 126 P: 72 IN: 142 QRS: 56 QRSD: 86 T: 59 QT: 314 QTc: 454 Interpretive Statements Sinus tachycardia with premature atrial complexes increased rate 12/15/20 Electronically Signed on 01-12-2021 20:13:23 EDT by Meredith Hernández
[2021-01-12 21:00] VITALS: BP 111/64
[2021-01-12] MEDS: HumaLOG INSULIN (NovoLOG) PER UNIT SC SCH (21:13)
[2021-01-12 22:00] VITALS: BP 107/68
[2021-01-12 22:20] LABS: CK-MB VALUE MASS 9.4 NG/ML (<3.6); CPK CREATINE PHOSPHOKINASE 976 U/L (39-308); MB/CK RELATIVE INDEX 0.96 (< OR =4); TROPONIN I < 0.02 NG/ML (< 0.10)
[2021-01-12 23:00] VITALS: BP 103/65
[2021-01-13] VITALS (12 sets, daily range): BP systolic 104–130; BP diastolic 61–72
[2021-01-13] MEDS: HumaLOG INSULIN (NovoLOG) PER UNIT SC SCH ×6 (01:00→21:00)
[2021-01-13] MEDS: NS 0.45% 1,000 ML IV SCH ×3 (01:38→06:45)
[2021-01-13 05:21] LABS: HEMATOCRIT 32.4 % (42.0-52.0); HEMOGLOBIN 9.8 g/dl (13.5-17.5); MEAN CORPUSCULAR HEMOGLOBIN 27.5 pg (27.0-33.0); MEAN CORPUSCULAR HGB CONC 30.2 g/dl (32.0-36.5); MEAN CORPUSCULAR VOLUME 90.8 fl (80.0-96.0); RED BLOOD COUNT 3.57 10^6/uL (4.30-6.10); WHITE BLOOD COUNT 13.2 10^3/uL (4.0-10.0)
[2021-01-13 05:27] LABS: PLATELET COUNT, AUTOMATED 327 10^3/uL (150-450)
[2021-01-13 05:43] LABS: BLOOD UREA NITROGEN 18 MG/DL (7-18); CARBON DIOXIDE LEVEL 22 MEQ/L (21-32); CHLORIDE LEVEL 105 MEQ/L (98-107); CREATININE FOR GFR 0.84 MG/DL (0.70-1.30); GLOMERULAR FILTRATION RATE > 60.0 (>42); GLUCOSE, FASTING 146 MG/DL (70-100); POTASSIUM SERUM 3.8 MEQ/L (3.5-5.1); SODIUM LEVEL 135 MEQ/L (136-145)
[2021-01-13 05:44] LABS: CALCIUM LEVEL 8.5 MG/DL (8.8-10.2); CK-MB VALUE MASS 6.7 NG/ML (<3.6); CPK CREATINE PHOSPHOKINASE 856 U/L (39-308); MB/CK RELATIVE INDEX 0.78 (< OR =4); TROPONIN I < 0.02 NG/ML (< 0.10)
[2021-01-13] MEDS: ENOXAPARIN 40MG/0.4ML SYRINGE (J1650 PER 10MG) SC SCH (08:26)
[2021-01-13] MEDS: KCL 20MEQ IN D5/0.45NS 1000ML 1,000 ML IV SCH ×2 (08:44→18:13)
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
[2021-01-13] MEDS ORDERED: ceFAZolin SOD 2 GM in IV 1 EA IV SCH (09:50)
[2021-01-13] MEDS: ceFAZolin SOD 1 GM in D5W MINI-BAG PLUS 50 ML IV SCH ×4 (11:12→18:14)
--- NOTE | 2021-01-13 11:16 | IPN ---
PROGRESS NOTE DATE: 01/13/2021 SUBJECTIVE: Paddy was admitted with hypotensive shock, lactic acidosis, hyperglycemia and presumed sepsis. He has a systolic pressure in the 80s on admission and was in acute kidney injury with an elevated lactate level, I suspected he had lactic acidosis related to sepsis compounded by his Metformin therapy. He has responded well to prescribed therapy. He is out of shock. His systolic blood pressure was in the 110 to 120 range and he is making good urine. His renal function is back to baseline and his hyperglycemia has resolved. He has not had his MRI scans done yet. He has a blood culture that is growing gram positive cocci in clusters. The patient is in the beginning stages of a workup for left humerus lesion. He had an x-ray of his left humerus on 12/15/2020 that showed expansile erosive permeative 10 cm long lesion of the left humerus with a nondisplaced or incomplete pathological fracture. Dr. Valdez Marmolejo of [facility] is planning to see him and has a surgical procedure scheduled for 01/16. The patient was supposed to have an MRI scans done and unspecified lab work at [facility] tomorrow. I have a call in for Dr. Marmolejo this morning. Clinically, the patient feels markedly better. He feels his strength has improved. Denies fever or chills. He has a chronically draining periumbilical wound that has been present for over 10 years, maybe longer. He had a ruptured appendix in 1974 that created problems, then he had an incarcerated ventral hernia in 2010 and requiring small bowel resection. I think that is when he started to develop his periumbilical complications and incisional hernia repair was repeated 02/11 and he apparently has had a nonhealing draining wound from the incisional area since 2020. He saw Dr. Finnegan for this who had left the area several years ago, had the area cauterized without any improvement. The nursing staff notes that it is persistently draining some slightly foul serous fluid. OBJECTIVE: VITAL SIGNS: Blood pressure is 124/72, pulse of 90, respiratory rate 22, 97% O2 saturation on room air. GENERAL APPEARANCE: Alert, conversant, in no distress. HEENT: Unremarkable. LUNGS: Clear. HEART: Regular rhythm, no murmur. ABDOMEN: Soft. He has some thickening in the periumbilical area. It feels like it has some extensive scarring. There is no fluctuance. There is yellow crusting of superficial wound inferior to the umbilicus. Trace peripheral edema. No clubbing or cyanosis. Good distal pulses. LABORATORY DATA: White count is down to 13.2, hemoglobin 9.8, platelets 327,000. Sodium 133, potassium 3.8, BUN is 18, creatinine is 0.8, it is down from 1.83 on admission. Last lactic acid was normal at 1.7, troponin is negative x3. Serum and urine free kappa and lambda light chains are pending. Serum protein electrophoresis is pending. MRI scan of thoracic and lumbosacral spine (no contrast due to recent acute kidney injury) is pending. IMPRESSION: 1. Hypotension/shock with lactic acidosis, this is resolved with hydration. I suspect he became hypotension and hypoperfused kidneys, this was compounded by the Metformin and he went into lactic acidosis. This is all resolved. His anion gap is normal. His renal function is back to baseline. I am reducing changing his IV fluids. 2. Positive blood culture with gram positive cocci in clusters concerning for Staph bacteremia. I will change the antibiotic to Ancef 2 grams IV every 8 hours, awaiting for full identification of the blood culture. We also will culture that chronically draining wound in his periumbilical area. 3. Diabetes. He was hypoglycemic last night. Blood sugar is 56. We are changing his fingersticks to a.c. and h.s. with coverage. His Metformin and Glimepiride are on hold. I added some dextrose to his IV fluids. 4. Widely metastatic skeletal lesions. He has skeletal lesions now in the posterior right glenoid, right scapula, sternum, T5 vertebral body, L4 vertebral body, posterior right third rib, left lateral fourth rib, and right femur. Some of these are new from a previous CT scan from 12/21. The etiology is unknown. He does have a slightly high PSA but as noted on admission typically metastatic prostate cancer would show blastic lesions and not lytic lesions. Myeloma workup is in progress. He has what I believe to be a biopsy planned by Dr. Marmolejo on . I have contacted Dr. Marmolejo's office and anticipate a chance to talk to him about the patient today. 5. Acute kidney injury, this has resolved with hydration. Avoid intravenous contrast agents, NSAIDs and hold his ARB medications. 6. Hypertension, his antihypertensives are on hold. He takes Losartan as an outpatient. I would not restart Losartan if he needs a blood pressure medication until he is well past his episode of acute kidney injury. 7. T5 metastasis with progression of lesion. The CT shows there has been some progression of the T5 lesion from the CT from a month earlier. I have ordered an MRI scan of his thoracic spine. Will also get a lumbar due to the L4 lesion. I want to make sure there is no potential cord involvement or danger from these lesions.
[2021-01-13 11:47] LABS: ALBUMIN 2.05 GM/DL (3.29-5.55); ALBUMIN % 34.7 % (55.8-66.1); ALPHA-1-GLOBULIN % 10.8 % (2.9-4.9); ALPHA-1-GLOBULINS 0.64 GM/DL (0.17-0.41); ALPHA-2-GLOBULINS 1.19 GM/DL (0.42-0.99); ALPHA-2-GLOBULINS % 20.1 % (7.1-11.8); BETA-1-GLOBULINS 0.38 GM/DL (0.28-0.60); BETA-1-GLOBULINS % 6.4 % (4.7-7.2); BETA-2-GLOBULINS 0.61 GM/DL (0.19-0.55); BETA-2-GLOBULINS % 10.3 % (3.2-6.5); GAMMA GLOBULIN % 17.7 % (11.1-18.8); GAMMA GLOBULINS 1.04 GM/DL (0.65-1.58)
[2021-01-13] MEDS ORDERED: ACETAMINOPHEN 500 MG TAB PO PRN (12:40)
[2021-01-13] MEDS ORDERED: ANEXSIA, NORCO 7.5MG/325MG TABLET(HYDROCODONE/APAP) PO PRN (13:05)
[2021-01-13] MEDS: ANEXSIA, NORCO 7.5MG/325MG TABLET(HYDROCODONE/APAP) PO PRN (13:15)
[2021-01-13] MEDS ORDERED: cefTRIAXone SOD 2 GM in D5W MINI-BAG PLUS 50 ML IV SCH (14:00)
--- NOTE | 2021-01-13 14:33 | IPN ---
PROGRESS NOTE DATE: 01/12/2021 SUBJECTIVE: Telephone call to Dr. Valdez Marmolejo at [facility]. We discussed Paddy' hospitalization, his current hospital course. Dr. Marmolejo has him scheduled for a biopsy and fixation of his left humeral pathologic fracture on 01/16. Patient had preop testing planned for tomorrow which consisted of chemistries, coagulation and an MRI of his humerus. He has already had all of the labs done except for coag's (I ordered PT/PTT today) and we will do the MRI of his left humerus today when he is getting his thoracic and lumbar spine MRs done. These are being done without contrast due to his acute kidney injury (I indicated to Dr. Marmolejo that we will have these imaging available on discs so the patient can take it with him for that procedure on ).
[2021-01-13 15:58] LABS: INR 1.24; PROTHROMBIN TIME 16.1 SECONDS (12.7-14.5)
[2021-01-13 15:59] LABS: PARTIAL THROMBOPLASTIN TIME 39.5 SECONDS (25.9-37.0)
[2021-01-13 16:13] LABS: CK-MB VALUE MASS 3.1 NG/ML (<3.6); CPK CREATINE PHOSPHOKINASE 512 U/L (39-308); MB/CK RELATIVE INDEX 0.61 (< OR =4); TROPONIN I < 0.02 NG/ML (< 0.10)
[2021-01-14] MEDS: ceFAZolin SOD 1 GM in D5W MINI-BAG PLUS 50 ML IV SCH ×6 (02:02→17:54)
[2021-01-14] MEDS: ANEXSIA, NORCO 7.5MG/325MG TABLET(HYDROCODONE/APAP) PO PRN ×3 (02:44→17:55)
[2021-01-14] MEDS: KCL 20MEQ IN D5/0.45NS 1000ML 1,000 ML IV SCH ×2 (05:48→15:35)
[2021-01-14 06:00] VITALS: BP 117/72
[2021-01-14 06:18] LABS: HEMATOCRIT 29.7 % (42.0-52.0); HEMOGLOBIN 9.1 g/dl (13.5-17.5); MEAN CORPUSCULAR HEMOGLOBIN 27.7 pg (27.0-33.0); MEAN CORPUSCULAR HGB CONC 30.6 g/dl (32.0-36.5); MEAN CORPUSCULAR VOLUME 90.3 fl (80.0-96.0); PLATELET COUNT, AUTOMATED 326 10^3/uL (150-450); RED BLOOD COUNT 3.29 10^6/uL (4.30-6.10); WHITE BLOOD COUNT 10.5 10^3/uL (4.0-10.0)
[2021-01-14 06:52] LABS: BLOOD UREA NITROGEN 13 MG/DL (7-18); CALCIUM LEVEL 8.1 MG/DL (8.8-10.2); CARBON DIOXIDE LEVEL 23 MEQ/L (21-32); CHLORIDE LEVEL 104 MEQ/L (98-107); CREATININE FOR GFR 0.83 MG/DL (0.70-1.30); GLOMERULAR FILTRATION RATE > 60.0 (>42); GLUCOSE, FASTING 258 MG/DL (70-100); POTASSIUM SERUM 4.1 MEQ/L (3.5-5.1); SODIUM LEVEL 137 MEQ/L (136-145)
[2021-01-14] MEDS: ENOXAPARIN 40MG/0.4ML SYRINGE (J1650 PER 10MG) SC SCH (09:26)
[2021-01-14] MEDS: HumaLOG INSULIN (NovoLOG) PER UNIT SC SCH ×4 (09:30→21:00)
[2021-01-14 14:00] VITALS: BP 109/70
[2021-01-14] MEDS ORDERED: GI COCKTAIL 50ML BTL(HYOSCYAMINE/MAALOX/LIDOCAINE VISCOUS)(1:3:1) PO PRN (15:25)
--- NOTE | 2021-01-14 17:17 | IPNPDOC ---
Date Seen The patient was seen on 01/14/21. Progress Note SUBJECTIVE: Patient seen examined at bedside. He is alert awake and oriented x3. Has mild to moderate pain in his left upper extremity. Patient also complaining of low back pain. Patient is not moving much in bed. Denies any chest pain fevers chills shortness of breath palpitations nausea vomiting or diarrhea. Patient was admitted with hypotensive shock lactic acidosis indicative of seps is. He responded well to IV resuscitation. He had a positive blood culture growing gram-positive cocci in clusters as well as group B strep from an abdominal wound. He is currently in the beginning stages of work-up for left humerus lesion approximately 10 cm long lesion left humerus with a nondisplaced incomplete pathologic fracture. Patient has been followed by Dr. Valdez Marmolejo of [facility] plan to have a surgical procedure for fixation of the left humerus on 01/16/2021. OBJECTIVE PHYSICAL EXAMINATION: VITAL SIGNS: please see below General: NAD, comfortable HEENT: PERRLA, EOMI, sclerae clear Neck: supple, normal ROM, no JVD Respiratory: lungs CTAB, no wheeze, no rales, no crackles CVS: RRR, normal S1, S2, no murmurs Abdo: Chronically draining periumbilical wound approximately 4 cm in diameter with purulent discharge. Dressings wet with purulence. No blood. There is no surrounding cellulitis. Extremities: no edema, pulses 2+ MSK: Left arm in dressing clean and intact. Able to move fingers. No cyanosis. Skin: Patient has 2 gluteal ulcers 4.2 x 3.6 cm and 6.4 x 5.8 cm. Stage II. Neuro: no focal neuro deficits, moving all 4 extremities, CN2-12 intact. Stren gth 5/5 in all 4 extremities. No nystagmus. Psych: calm, cooperative, AAO x 3 LABORATORY DATA, IMAGING STUDIES, MICROBIOLOGY: Please see below. DVT prophylaxis ordered?: Lovenox 40 mg subcu daily. 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 Differential diagnosis include prostate cancer versus multiple myeloma. Patient has had a 50 pounds loss in 1 year. Patient was planned for left humeral biopsy and fixation by Dr. Marmolejo in [place] on 01/16/2021. Patient was admitted to [facility] on 01/13/2021 with sepsis requiring admission to ICU. He responded well to IV fluid resuscitation. Is presently receiving Ancef IV. Patient has MRIs and coags scheduled preoperatively. However given the fact that the patient has gram-positive organisms in clusters as well as wound culture positive for group B strep I do not think it is pertinent to proceed with surgical intervention at this time. Dr. Hope has been consulted. According to microbiology the cannot rule out staph aureus at this time. PROBLEMS: Sepsis with lactic acidosis: resolved. C/w ancef. Blood cx positive gram + cocci in cluster. Periumbilical wound growing Group B strep. Day 2 ancef. Unclear if MRSA. Awaiting final cx. Dr. Hope consulted. Recs greatly appreciated. Gram positive bacteremia: 1/2 bottles from 01/13/21 growing gram positive cocci in clusters. Repeat cultures ordered on 01/14/21. C/w Ancef. Dr. Hope consulted. Source possible periumbilical wound. DM2: c/w ISS AC and HS. Hypoglycemic precautions. Holding metformin and glimepiride. Diffuse metastatic skeletal lesions: involve posterior R glenoid, R scapula, L lateral 4th rib, R femur, sternrum, posterior R third rib, L humerus 10 cm lesion. Primary as yet unknown. PSA slightly elevated. Ongoing myeloma workup. Has L humerus bx and fixation planned by Dr. Valdez Marmolejo ([facility]) on 01/16/21. I left a message with his office today. I do not believe patient should proceed with surgical fixation until we have adequately worked up infectious process, and treated bacteremia. MRI of thoracic and Lumbar spine ordered. Medical oncology consult placed with Dr. Deshpande. Will speak to IR in am to determine if bx can be done. SHELBY: resolved with IVF. Avoid nephrotoxins HTN: losartan held due to SHELBY. Dispo: pending clinical improvement. VS, I&O, 24H, Fishbone Vital Signs/I&O Vital Signs Date Time Temp Pulse Resp B/P (MAP) Pulse Ox O2 Delivery O2 Flow Rate FiO2 01/14/21 14:00 97.7 87 20 109/70 (83) 99 Room Air 01/12/21 19:06 2.0 I&O- Last 24 Hours up to 6 AM 01/14/21 06:00 Intake Total 3730 ml Output Total 1625 ml Balance 2105 ml Laboratory Data 24H LABS Laboratory Tests 2 01/13/21 20:42: Bedside Glucose (Misc Panel) 219H 01/14/21 05:27: 01/14/21 05:30: Nucleated Red Blood Cells % (auto) 0.0, Anion Gap 10, Glomerular Filtration Rate > 60.0, Calcium Level 8.1L 01/14/21 11:27: Bedside Glucose (Misc Panel) 263H 01/14/21 16:55: Bedside Glucose (Misc Panel) 159H CBC/BMP Laboratory Tests 01/14/21 05:30 Microbiology Microbiology 01/14/21 Blood Culture, Received Pending 01/14/21 Blood Culture, Received Pending 01/13/21 Gram Stain - Final, Resulted 01/13/21 Wound Culture - Preliminary, Resulted Strep Agalactiae Group B 01/12/21 Urine Culture - Final, Complete 01/12/21 Respiratory Virus Panel (PCR) (MEENU) - Final, Complete 01/12/21 Blood Culture - Preliminary, Resulted No Growth after 48 hours. All Specime... 01/12/21 Blood Culture - Preliminary, Resulted JAELYN PICHARDO MD Jan 14, 2021 17:17
[2021-01-14] MEDS ORDERED: KETOROLAC 30 MG/ML 1ML VIAL IV ONE (19:55)
--- NOTE | 2021-01-14 20:52 | CR.PDOC ---
General Date of Consultation: Jan 14, 2021 Referring Provider: JAELYN PICHARDO MD Attending Physician: MARII ALARCON MD Consultation REASON FOR CONSULTATION extensive metastatic bone disease of unknown origin HISTORY OF PRESENT ILLNESS: [I had the pleasure of seeing Mr. Paddy Miller in consultation for extensive metastatic bone disease with pathological fracture of the right humerus. As you know Mr. Miller is a 70 years old white gentleman who is a known hypertensive and diabetic. He is admitted with septic shock and was resuscitated. He was found to have positive blood culture with gram-positive cocci in clusters as well as group B strep from abdominal wound. He has chronic unhealed abdominal wound since 1974 and is being treated symptomatically without any healing. Early 2020 he was found to have expansile lesion in the proximal left humeral shaft suggestive of metastatic lesion and had pathological fracture. He was seen by [facility] orthopedic group. He is supposed to see orthopedics in [place] for further work-up. In December [address] scan of the chest abdomen and pelvis. There was sigmoid colon wall thickness and diffuse enlargement of prostate. Patient was found to have sclerotic lesion in the right femoral neck but no solid opacities in the a bdominal pelvis. CT of the chest showed extensive metastatic lesion with osteolytic rib mets and sternal and T5 vertebral lesion extending into posterior elements in the spinal canal. He also has some less than 1 cm lung nodules. Ill-defined metastatic lesions in L4 posterior element. He did not have any biopsy done of any of those lesions and even if it is done patient does not have any knowledge of that. Currently he is being treated for his gram-positive septicemia. Currently he is slightly drowsy because of the effect of sedation is getting. He does not have major cough phlegm or wheezing. Denies chest pain or palpitation no headache or dizziness no urinary symptoms. He is a known hypertensive and diabetic. He has no coronary artery disease. ALLERGIES: Please see below. HOME MEDICATIONS: Please see below. PAST MEDICAL HISTORY: 1. [Appendectomy complicated with peritonitis with prolonged ICU stay]. 2. [Incisional hernia with incarceration of ventral hernia and a small bowel resection. He had repeat ventral hernia incision repair done 02/2012. He has a nonhealing wound in the area since 2011 periodically bleeds and gets infected]. 3. Bilateral cataract surgery 4. Large stable left scrotal hydrocele PAST SURGICAL HISTORY: 1. [Appendectomy] 2. 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 Unable to move the left arm because of fracture of the right femur]. HEENT: [Has slurred speech due to sedation]. CARDIOVASCULAR: [Denies chest pain or palpitation]. RESPIRATORY: [Denies major cough phlegm or wheezing]. GENITOURINARY: [Denies burning urination]. MUSCULOSKELETAL: [Has back pain and pain in the arm]. GASTROINTESTINAL: [Normal bowel movement]. SKIN: [Denies rash]. NEUROLOGICAL: [No history of seizures]. PSYCHIATRIC: [No depression]. ENDOCRINE: [Nondiabetic]. HEMATOLOGIC/LYMPHATIC: [Denies enlarged lymph nodes]. PHYSICAL EXAMINATION: VITAL SIGNS: Please see below. GENERAL APPEARANCE: [Pleasant gentleman slightly drowsy distressed with some pain in the left arm]. HEENT: [No mucositis or thrush]. RESPIRATORY: [Lungs clear to auscultation]. CARDIOVASCULAR: [RRR normal S1-S2]. ABDOMEN: [Abdomen soft bowel sounds present no hepatosplenomegaly. Massively enlarged left scrotum nontender firm to hard]. EXTREMITIES: [No pedal edema]. NEUROLOGICAL: [Restricted movement of the left arm secondary to pathological fracture]. PSYCHIATRIC: [Mild anxiety]. LABORATORY DATA: Please see below. ASSESSMENT/PLAN: Paddy Miller is a 70-year-old white gentleman who is admitted with gram- positive septicemia and lactic acidosis. Patient is found to have extensive metastatic disease to the skeleton including ribs and vertebral column at T5 and L4. Patient also has pathological fracture of the left humerus. Following is suggested. #1. Patient blood should be checked for PT/INR and PTT for prerequisite for biopsy #2. Patient should have core needle biopsy of one of the approachable lesion either in the bones or the lung. IR consult should be made for that purpose. #3. Patient had pathological fracture of the left humerus and trying to fix a pathological fracture by orthopedic may not be successful because of cancer at the site of fracture will not let it heal properly. Radiation consultation will be helpful once we have a pathologic diagnosis for a type of cancer he had. #4. Patient should have marker studies for PSA, CEA, AFP and beta-hCG. Months final pathological diagnosis is available patient will be seen again for further decision-making. #5. Once we have final diagnosis was in nature of cancer further recommend ations will be made depending on type of cancer diagnosis. Please do not hesitate to call if there is any question regarding further investigations. Vital Signs/I&O Vital Signs Date Time Temp Pulse Resp B/P (MAP) Pulse Ox O2 Delivery O2 Flow Rate FiO2 01/14/21 18:25 17 Room Air 01/14/21 14:00 97.7 87 109/70 (83) 99 01/12/21 19:06 2.0 I&O- Last 24 Hours up to 6 AM 01/14/21 06:00 Intake Total 3730 ml Output Total 1625 ml Balance 2105 ml Laboratory Data Labs 24H Laboratory Tests 2 01/13/21 20:42: Bedside Glucose (Misc Panel) 219H 01/14/21 05:27: 01/14/21 05:30: Nucleated Red Blood Cells % (auto) 0.0, Anion Gap 10, Glomerular Filtration Rate > 60.0, Calcium Level 8.1L 01/14/21 11:27: Bedside Glucose (Misc Panel) 263H 01/14/21 16:55: Bedside Glucose (Misc Panel) 159H CBC/BMP Laboratory Tests 01/14/21 05:30 Microbiology Microbiology 01/14/21 Blood Culture, Received Pending 01/14/21 Blood Culture, Received Pending 01/13/21 Gram Stain - Final, Resulted 01/13/21 Wound Culture - Preliminary, Resulted Strep Agalactiae Group B 01/12/21 Urine Culture - Final, Complete 01/12/21 Respiratory Virus Panel (PCR) (MEENU) - Final, Complete 01/12/21 Blood Culture - Preliminary, Resulted No Growth after 48 hours. All Specime... 01/12/21 Blood Culture - Preliminary, Resulted Allergies Coded Allergies: No Known Allergies (Unverified , 12/15/20) Home Medications Scheduled Aspirin (Aspirin) 325 Mg Tablet, 325 MG PO DAILY, (Reported) Furosemide (Furosemide) 20 Mg Tab, 20 MG PO DAILY, (Reported) Glimepiride (Glimepiride) 2 Mg Tab, 2 MG PO DAILY, (Reported) Latanoprost/Pf (Latanoprost 0.005% Eye Drop) 7.5 Ml Drops, 1 DROP OU QHS, (Reported) Losartan Potassium (Losartan Potassium) 50 Mg Tab, 50 MG PO DAILY, (Reported) Metformin HCl (Metformin HCl) 1,000 Mg Tab, 1,000 MG PO BID, (Reported) Scheduled PRN Hydrocodone/Acetaminophen (Hydrocodone-Acetamin 7.5-325) 1 Each Tablet, 1 TAB PO Q4H PRN for PAIN LEVEL 5-10, (Reported) MARII ALARCON MD Jan 14, 2021 20:52
--- NOTE | 2021-01-14 21:37 | REPVR ---
PROCEDURE INFORMATION: Exam: MR Left Upper Extremity Other Than Joint Without Contrast, Humerus. Exam date and time: 01/14/2021 1:34 PM Age: 70 years old Clinical indication: Condition or disease; Patient HX: Pathological FX; Additional info: Met TECHNIQUE: Imaging protocol: MR of the Left upper extremity other than joint without intravenous contrast. Exam focused on the Humerus. COMPARISON: CR Humerus LEFT 12/15/2020 11:14 PM FINDINGS: Mid diaphyseal acute appearing fracture of the humerus is present without significant displacement or angulation deformity. There is underlying marrow replacement with a medullary lesion in the mid diaphysis measuring 13 cm in length and roughly 3 cm in diameter. Edema within the adjacent soft tissues without an identifiable soft tissue mass or fluid collection. No articular involvement of the shoulder or elbow. Normal osseous alignment involving the shoulder. No evidence of detachment of muscular structures. IMPRESSION: Non expansile mid diaphyseal humeral lesion measuring 13 cm in length, with pathologic fracture through the midportion. No identifiable soft tissue mass or soft tissue infiltrative process Electronically signed by: Ronak Ng On 01/14/2021 21:36:36 PM
[2021-01-14] MEDS: PIPERACILLIN/TAZOBACTAM SOD 4.5 GM in D5W MINI-BAG PLUS 50 ML IV SCH (21:42)
--- NOTE | 2021-01-14 21:44 | REPVR ---
PROCEDURE INFORMATION: Exam: MR Thoracic Spine Without Contrast Exam date and time: 01/14/2021 8:20 PM Age: 70 years old Clinical indication: Condition or disease; Cancer, metastatic/secondary to thoracic bone; Patient HX: Bone mets of unknown origin; Additional info: T5 met lesion TECHNIQUE: Imaging protocol: Multiplanar magnetic resonance images of the thoracic spine without intravenous contrast. COMPARISON: CT ABD PELVIS W/O CONTRAST 01/12/2021 2:03 PM FINDINGS: No segmental thoracic spine malalignment. Vertebral body height loss is present at the T5 level with 50% height loss and buckling of the posterior cortex into the spinal canal. Underlying pathologic lesion involving the vertebral body and posterior elements with paraspinous soft tissue involvement on the right. There is posterior displacement, in case mint and compression of the thoracic spinal cord at this level without cord edema. Pathologic lesion is also present at the T4 level involving the vertebral body and the posterior elements, worse to the left of midline, and there is a lesion at T9 inferiorly concerning for metastatic disease. Underlying multilevel degenerative disc and diffuse idiopathic skeletal hyperostosis changes. IMPRESSION: Thoracic spinal cord compression at the T4 level secondary to an infiltrative vertebral lesion involving the vertebral body and posterior elements, with left paraspinous extension. Pathologic vertebral lesions at the T4 and T9 levels as well without spinal cord compression at those levels Electronically signed by: Ronak Ng On 01/14/2021 21:43:55 PM
--- NOTE | 2021-01-14 21:49 | REPVR ---
PROCEDURE INFORMATION: Exam: MR Lumbar Spine Without Contrast Exam date and time: 01/14/2021 5:52 PM Age: 70 years old Clinical indication: Condition or disease; Cancer, metastatic (secondary site lumbar); Patient HX: Bone mets unknown origin; Additional info: Met TECHNIQUE: Imaging protocol: Multiplanar magnetic resonance images of the lumbar spine without intravenous contrast. COMPARISON: MRI-Spine,Thoracic without con 01/14/2021 7:40 PM FINDINGS: No traumatic segmental malalignment. Abnormal marrow replacement involving the L3 and L4 vertebrae and posterior elements of L4. This is consistent with metastatic disease and correlates with findings on the thoracic spine MRI. No other concerning lumbar spine marrow process. Conus medullaris terminates at the L1 level. No abnormal signal in the conus or distal spinal cord. Normal dependent layering of cauda equina nerve roots. T12-L1 demonstrates minimal disc bulge and annular tear. Patent canal and foramina. L1-L2: Minimal disc bulge. No canal or foraminal compromise. L2-L3: Moderately severe spinal canal stenosis secondary to posterior vertebral osteophytes with ligamentum flavum and facet arthropathy which also results in inferior recess stenosis on the right, marked. L3-L4: Marked severe spinal canal stenosis secondary to a diffuse disc bulge with hypertrophic ligamentum flavum and facet arthropathy. Bilateral inferior recess stenosis, right worse than left secondary to asymmetric facet arthropathy. L4-L5: Posterior osteophyte formation results in mild spinal canal stenosis and facet arthropathy results in marked bilateral foraminal stenosis. Posterior element metastatic lesion at L4 indents the ventral aspect of the thecal sac L5-S1: Minor disc bulge and annular tear and osteophyte formation with mild canal narrowing. No dilatation of the imaged distal abdominal aorta. IMPRESSION: Metastatic lesions involving the L3 and L4 vertebrae with the L4 lesion posterior element involvement extending slightly into the posterior spinal canal without conus compression. No acute pathologic fracture. Severe spinal canal stenosis and foraminal stenoses of degenerative type L2-L3 and L3-L4 particularly and severe bilateral degenerative foraminal stenosis at L4-L5. Electronically signed by: Ronak Ng On 01/14/2021 21:49:08 PM
[2021-01-14 22:00] VITALS: BP 108/69
[2021-01-15] MEDS: PIPERACILLIN/TAZOBACTAM SOD 4.5 GM in D5W MINI-BAG PLUS 50 ML IV SCH ×4 (01:07→21:07)
[2021-01-15 05:50] LABS: HEMATOCRIT 29.3 % (42.0-52.0); HEMOGLOBIN 8.9 g/dl (13.5-17.5); MEAN CORPUSCULAR HEMOGLOBIN 27.5 pg (27.0-33.0); MEAN CORPUSCULAR HGB CONC 30.4 g/dl (32.0-36.5); MEAN CORPUSCULAR VOLUME 90.4 fl (80.0-96.0); PLATELET COUNT, AUTOMATED 298 10^3/uL (150-450); RED BLOOD COUNT 3.24 10^6/uL (4.30-6.10); WHITE BLOOD COUNT 9.3 10^3/uL (4.0-10.0)
[2021-01-15 06:00] VITALS: BP 109/70
[2021-01-15 06:15] LABS: BLOOD UREA NITROGEN 15 MG/DL (7-18); CALCIUM LEVEL 8.2 MG/DL (8.8-10.2); CARBON DIOXIDE LEVEL 25 MEQ/L (21-32); CHLORIDE LEVEL 106 MEQ/L (98-107); CREATININE FOR GFR 0.91 MG/DL (0.70-1.30); GLOMERULAR FILTRATION RATE > 60.0 (>42); GLUCOSE, FASTING 253 MG/DL (70-100); POTASSIUM SERUM 3.9 MEQ/L (3.5-5.1); SODIUM LEVEL 138 MEQ/L (136-145)
[2021-01-15] MEDS: HumaLOG INSULIN (NovoLOG) PER UNIT SC SCH ×4 (08:21→21:07)
[2021-01-15] MEDS: ENOXAPARIN 40MG/0.4ML SYRINGE (J1650 PER 10MG) SC SCH (08:22)
[2021-01-15] MEDS: ANEXSIA, NORCO 7.5MG/325MG TABLET(HYDROCODONE/APAP) PO PRN ×3 (10:54→21:09)
--- NOTE | 2021-01-15 12:20 | CR ---
CONSULTATION DATE: 01/14/2021 REASON FOR CONSULTATION: I was asked to consult by Elijah Ibrahim MD for evaluation of abdominal wound and sacral decubitus ulcers in a patient admitted with sepsis. HISTORY OF PRESENT ILLNESS: Mr. Miller is a pleasant, 70-year-old gentleman with a history of hypertension and diabetes who was admitted to [facility] after he had a fall and was very weak. The patient broke his left arm when he was opening a window and had a pathologic fracture of his left humerus. That occurred on 12/04. He was seen in the emergency room on 12/15 and was noted to have a 10 cm lesion of the left humerus. The radius and ulna were normal except for arthritis. He had also during that emergency room visit a CT of abdomen and pelvis which showed sigmoid wall thickening and a right femoral neck lesion as well. The patient was seen by [facility] and was referred to Dr. Marmolejo for fixation of the left humeral fracture and this was supposed to be done in a couple of days. The patient was admitted to the hospital yesterday with significant weakness felt to be related to sepsis. He states he had been sitting in his chair for the past six weeks since his arm fracture because he has severe knee pain on the left side as well and had not been able to help himself up out of bed. He has bilateral decubitus ulcers on each buttock which are somewhat painful. He denied having any fever, chills, night sweats, no nausea, vomiting or diarrhea. The patient has chronic abdominal wounds since surgery in 2010 where he had an incarcerated hernia and bowel resection. He has a chronic nonhealing wound which drains usually but now he had noticed that he had three different areas that were draining. PAST MEDICAL HISTORY: Significant for hypertension, diabetes, chronic abdominal wound with purulent discharge, abdominal adhesions. Left pathologic humerus fracture, right femoral neck lesion. 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 In 2010, he had an incarcerated hernia and a bowel resection with poor wound healing. January,, ventral incisional hernia repair and adhesions done by Dr. Stovall. FAMILY HISTORY: Father had hypertension, diabetes. Mother had pancreatic cancer. SOCIAL HISTORY: He is . He lives with his . 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 He drinks socially. He has one daughter. REVIEW OF SYSTEMS: He feels weak, frail. He thinks he is dying. He denies any chest pain or palpitation. He has no cough or shortness of breath except with exertion. He denies any dysuria. He denies any change in his testicular mass which has been there for years. It does not hurt. PHYSICAL EXAMINATION: General: He is a frail, elderly gentleman in no acute distress. Heart: Normal S-1, S-2, no murmurs, rubs or gallops. Lungs are clear, no wheezes, rales or rhonchi. Abdomen: Soft, multiple scar tissue in the mid-abdominal area with a 2 cm ulceration on the upper aspect of the wound and two smaller sinus tracts that are draining purulent discharge along the wound. There is minimal erythema surrounding it. Decubitus ulcers on both buttocks. The right side has a 6.5 x 4.5 cm with erythema and the left buttock had a 2.2 x 1.5 cm ulceration. LABORATORY DATA: White count was 19.6 on admission, today was 10.5, hemoglobin 9.1, hematocrit 29.7, platelets 326. Sodium 137, potassium 4.1, chloride l04, bicarb 23, BUN 13, creatinine 0.83, glucose 258, calcium 8.1. CPK 09/11 down from 976. Troponin less than 0.02. Lactic acid 1.7. Hemoglobin A1c was last done in August, was 7.9. Wound culture has group B Strep from the abdomen. Blood cultures, two sets on 01/14 are pending. 01/12, one out of two is positive for gram positive cocci which is a Staph hominis, most likely a contaminant. Respiratory panel was negative. IMAGING: MRI, lumbar, thoracic and upper extremity are pending. Chest CT shows five subcentimeter nodules in the right lung. Lesions seen, posterior right rib and left lateral fourth rib. T5 lesion. Lesions in the lungs are 4 to 9 mm, no gross adenopathy in the zoe or axilla. CT, abdomen and pelvis showed a right femur lesion and an L4 lesion. IMPRESSION: This is a 70-year-old gentleman with multiple metastatic lesions, unknown primary, who is admitted with a left humerus fracture, sepsis treated with IV antibiotics, doing much better. The source of his sepsis could be his decubitus ulcer with a chronic abdominal wound. His white count has improved. He has been hydrated. The patient needed to have surgery done by Dr. Marmolejo in [place] on but I do not think this is the best timing for this surgery at this time. Placing a stephon in a broken humerus at this time may be complicated by infection as he has multiple open areas with purulent drainage. PLAN: I called Dr. Marmolejo and canceled the case for , told him that we may reschedule it for next week once the patient is a little clinically more stable. Discontinue IV cefazolin, switched to Zosyn to cover for anaerobes in the buttock area that will cover abdomen and decubitus ulcers. The patient does not have bacteremia. This was a skin contaminant with Staph coag negative. Consult from Dr. Peoples was read and appreciated. He has recommended trying to obtain a biopsy for diagnosis and possibly doing radiation to the left humerus prior to surgery. With all those open wounds, I am concerned about this patient getting chemotherapy at this time before his wounds heal somewhat. The case was discussed with Dr. Ibrahim, Dr. Marmolejo and I will discuss the case with Dr. Peoples.
[2021-01-15 14:00] VITALS: BP 108/70
--- NOTE | 2021-01-15 15:11 | IPNPDOC ---
Date Seen The patient was seen on 01/15/21. Progress Note SUBJECTIVE: Patient seen examined at bedside. He is alert awake and oriented x3. Has mild to moderate pain in his left upper extremity. Patient also complaining of low back pain. Patient is not moving much in bed. Denies any chest pain fevers chills shortness of breath palpitations nausea vomiting or diarrhea. Patient was admitted with hypotensive shock lactic acidosis indicative of seps is. He responded well to IV resuscitation. He had a positive blood culture growing gram-positive cocci in clusters as well as group B strep from an abdominal wound. He is currently in the beginning stages of work-up for left humerus lesion approximately 10 cm long lesion left humerus with a nondisplaced incomplete pathologic fracture. Patient has been followed by Dr. Valdez Marmolejo of [facility] orth[facility] plan to have a surgical procedure for fixation of the left humerus on 01/16/2021. OBJECTIVE PHYSICAL EXAMINATION: VITAL SIGNS: please see below General: NAD, comfortable HEENT: PERRLA, EOMI, sclerae clear Neck: supple, normal ROM, no JVD Respiratory: lungs CTAB, no wheeze, no rales, no crackles CVS: RRR, normal S1, S2, no murmurs Abdo: Chronically draining periumbilical wound approximately 4 cm in diameter with purulent discharge. Dressings wet with purulence. No blood. There is no surrounding cellulitis. Extremities: no edema, pulses 2+ Rectal exam: preserved voluntary anal tone. No saddle anesthesia. MSK: Left arm in dressing clean and intact. Able to move fingers. No cyanosis. Skin: Patient has 2 gluteal ulcers 4.2 x 3.6 cm and 6.4 x 5.8 cm. Stage II. Neuro: no focal neuro deficits, moving all 4 extremities, CN2-12 intact. Strength 5/5 in all 4 extremities. No nystagmus. Psych: calm, cooperative, AAO x 3 LABORATORY DATA, IMAGING STUDIES, MICROBIOLOGY: Please see below. MRI Lumbar spine wo contrast (01/14/21): IMPRESSION: Metastatic lesions involving the L3 and L4 vertebrae with the L4 lesion posterior element involvement extending slightly into the posterior spinal canal without conus compression. No acute pathologic fracture. Severe spinal canal stenosis and foraminal stenoses of degenerative type L2-L3 and L3-L4 particularly and severe bilateral degenerative foraminal stenosis at L4-L5. MRI thoracic spine wo contrast (01/14/21): IMPRESSION: Thoracic spinal cord compression at the T4 level secondary to an infiltrative vertebral lesion involving the vertebral body and posterior elements, with left paraspinous extension. Pathologic vertebral lesions at the T4 and T9 levels as well without spinal cord compression at those levels MRI w contrast L humerus (01/14/21): IMPRESSION: Non expansile mid diaphyseal humeral lesion measuring 13 cm in length, with pathologic fracture through the midportion. No identifiable soft tissue mass or soft tissue infiltrative process DVT prophylaxis ordered?: Lovenox 40 mg subcu daily. 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 Differential diagnosis include prostate cancer versus multiple myeloma. Patient has had a 50 pounds loss in 1 year. Patient was planned for left humeral biopsy and fixation by Dr. Marmolejo in [place] on 01/16/2021. Patient was admitted to [facility] on 01/13/2021 with sepsis requiring admission to ICU. He responded well to IV fluid resuscitation. Is presently receiving Ancef IV. Patient has MRIs and coags scheduled preoperatively. However given the fact that the patient has gram-positive organisms in clusters as well as wound culture positive for group B strep I do not think it is pertinent to proceed with surgical intervention at this time. Dr. Hope has been consulted. According to microbiology the cannot rule out staph aureus at this time. PROBLEMS: Sepsis with lactic acidosis: resolved. C/w ancef. Blood cx positive gram + cocci in cluster. Periumbilical wound growing Group B strep. Day 2 ancef. Unclear if MRSA. Awaiting final cx. Dr. Hope consulted. Recs greatly appreciated. Gram positive bacteremia: 1/2 bottles from 01/13/21 growing staph haemolyticus. Repeat cultures ordered on 01/14/21. Dr. Hope consulted. Source possible periumbilical wound vs sacral decub. Convert ancef to zosyn (day 2). Periumbilical draining wound: general surgery consult placed. Hx of hernia repair 2011. Cx grew strep group B and staph. Zosyn day 2. DM2: c/w ISS AC and HS. Hypoglycemic precautions. Holding metformin and g limepiride. Diffuse metastatic skeletal lesions: involve posterior R glenoid, R scapula, L lateral 4th rib, R femur, sternrum, posterior R third rib, L humerus 10 cm lesion. Primary as yet unknown. PSA slightly elevated. Ongoing myeloma workup. Has L humerus bx and fixation planned by Dr. Valdez Marmolejo ([facility]) on 01/16/21. I left a message with his office today. I do not believe patient should proceed with surgical fixation until we have adequately worked up infectious process, and treated bacteremia. MRI of thoracic and Lumbar spine ordered. Medical oncology consult placed with Dr. Deshpande, tumor markers ordered. IR consult placed, plan for tissue bx. D/w Dr. Marmolejo. Once patient is stable from sepsis picture, he can be contacted for fixation of L humer fx. L3/L4 T4/T9 metastatic vertebral lesions: L3 lesion posterior element involvement extending slightly into posterior spinal canal without conus compression. SHRUTHI was performed. Patient has preserved voluntary anal tone. He has preserved sensation of the perineum. SHELBY: resolved with IVF. Avoid nephrotoxins HTN: losartan held due to SHELBY. Dispo: pending clinical improvement. D/w , Marilin. All questions were answered in detail. VS, I&O, 24H, Fishbone Vital Signs/I&O Vital Signs Date Time Temp Pulse Resp B/P (MAP) Pulse Ox O2 Delivery O2 Flow Rate FiO2 01/15/21 11:24 18 01/15/21 10:54 Room Air 01/15/21 06:00 98.5 80 109/70 (83) 96 01/12/21 19:06 2.0 I&O- Last 24 Hours up to 6 AM 01/15/21 06:00 Intake Total 1720 ml Output Total 1050 ml Balance 670 ml Laboratory Data 24H LABS Laboratory Tests 2 01/14/21 16:55: Bedside Glucose (Misc Panel) 159H 01/14/21 21:31: Bedside Glucose (Misc Panel) 134H 01/14/21 22:51: C-Reactive Protein, Quantitative 17.80H 01/15/21 05:26: Tumor Marker Alpha Fetoprotein < 1.3, Carcinoembryonic Antigen < 0.5 01/15/21 05:28: Nucleated Red Blood Cells % (auto) 0.0, Anion Gap 7L, Glomerular Filtration Rate > 60.0, Calcium Level 8.2L, Procalcitonin 2.63 01/15/21 11:30: Bedside Glucose (Misc Panel) 196H CBC/BMP Laboratory Tests 01/15/21 05:28 Microbiology Microbiology 01/14/21 Blood Culture - Preliminary, Resulted No growth after 24 hours . All specim... 01/14/21 Blood Culture - Preliminary, Resulted No growth after 24 hours . All specim... 01/13/21 Gram Stain - Final, Resulted 01/13/21 Wound Culture - Preliminary, Resulted Strep Agalactiae Group B Staphylococcus Aureus 01/12/21 Urine Culture - Final, Complete 01/12/21 Respiratory Virus Panel (PCR) ([facility]) - Final, Complete 01/12/21 Blood Culture - Preliminary, Resulted No Growth after 72 hours. All specime... 01/12/21 Blood Culture - Final, Complete Staphylococcus Haemolyticus JAELYN PICHARDO MD Jan 15, 2021 15:11
[2021-01-15 18:08] LABS: FREE KAPPA LIGHT CHAINS SERUM 67.9 mg/L (3.3-19.4); FREE LAMBDA LIGHT CHAINS SERUM 50.4 mg/L (5.7-26.3); KAPPA/LAMBDA RATIO SERUM 1.35 (0.26-1.65)
--- NOTE | 2021-01-15 19:16 | REP ---
INDICATION: please include ABIs. suspected PAD. COMPARISON: None. TECHNIQUE: Real-time sonographic evaluation of the lower extremity arteries bilaterally FINDINGS: All numeric values represent peak systolic velocities in cm/SEC On the right: The ankle brachial index is unobtainable. [employer] CAKE DECORATOR: 75.8 triphasic Profunda: 58.5 biphasic SFA proximal: 66.8 triphasic SFA Mid: 58.4 triphasic SFA distal: 51.5 triphasic Popliteal: 56.8 triphasic OLIVER proximal: 61.5 biphasic Tibioperoneal trunk: 35.9 triphasic STORE PLANNER proximal: 95.9 triphasic STORE PLANNER distal: 137.4 triphasic OLIVER distal: 37.0 biphasic On the left: The ankle brachial index is unobtainable. [employer] CAKE DECORATOR: 55.1 triphasic Profunda: 49.1 triphasic SFA proximal: 70.8 triphasic SFA Mid: 68.5 triphasic SFA distal: 59.7 triphasic Popliteal: 54.6 triphasic OLIVER proximal: 100.5 triphasic Tibioperoneal trunk: 39.8 triphasic STORE PLANNER proximal: 55.0 triphasic STORE PLANNER distal: 120.7 triphasic OLIVER distal: 45.3 biphasic Moderate plaque was seen bilaterally. No stenosis was identified. IMPRESSION: As above <Electronically signed by Alonso Quiroga > 01/15/21 [id number]
[2021-01-15 22:00] VITALS: BP 109/66
[2021-01-16] MEDS: PIPERACILLIN/TAZOBACTAM SOD 4.5 GM in D5W MINI-BAG PLUS 50 ML IV SCH ×4 (01:29→19:04)
[2021-01-16 05:55] LABS: HEMATOCRIT 29.7 % (42.0-52.0); MEAN CORPUSCULAR HEMOGLOBIN 27.4 pg (27.0-33.0); MEAN CORPUSCULAR HGB CONC 30.3 g/dl (32.0-36.5); MEAN CORPUSCULAR VOLUME 90.3 fl (80.0-96.0); PLATELET COUNT, AUTOMATED 314 10^3/uL (150-450); RED BLOOD COUNT 3.29 10^6/uL (4.30-6.10); WHITE BLOOD COUNT 7.9 10^3/uL (4.0-10.0)
[2021-01-16 06:00] VITALS: BP 115/71
[2021-01-16 06:25] LABS: BLOOD UREA NITROGEN 14 MG/DL (7-18); CARBON DIOXIDE LEVEL 25 MEQ/L (21-32); CHLORIDE LEVEL 105 MEQ/L (98-107); CREATININE FOR GFR 0.81 MG/DL (0.70-1.30); GLOMERULAR FILTRATION RATE > 60.0 (>42); GLUCOSE, FASTING 199 MG/DL (70-100); POTASSIUM SERUM 4.4 MEQ/L (3.5-5.1); SODIUM LEVEL 139 MEQ/L (136-145)
[2021-01-16 06:26] LABS: CALCIUM LEVEL 8.2 MG/DL (8.8-10.2)
[2021-01-16] MEDS: ANEXSIA, NORCO 7.5MG/325MG TABLET(HYDROCODONE/APAP) PO PRN ×3 (07:35→22:41)
[2021-01-16 08:45] VITALS: BP 110/72
[2021-01-16] MEDS: HumaLOG INSULIN (NovoLOG) PER UNIT SC SCH ×4 (09:14→22:40)
[2021-01-16] MEDS ORDERED: LIDOCAINE W/EPINEPHRINE 1% 20ML VIAL SC SCH (09:30)
--- NOTE | 2021-01-16 13:09 | IPNPDOC ---
Date Seen The patient was seen on 01/16/21. Progress Note SUBJECTIVE: Patient seen examined at bedside. He is alert awake and oriented x3. Has mild to moderate pain in his left upper extremity. Patient also complaining of low back pain. Patient is not moving much in bed. Denies any chest pain fevers chills shortness of breath palpitations nausea vomiting or diarrhea. OBJECTIVE PHYSICAL EXAMINATION: VITAL SIGNS: please see below General: NAD, comfortable HEENT: PERRLA, EOMI, sclerae clear Neck: supple, normal ROM, no JVD Respiratory: lungs CTAB, no wheeze, no rales, no crackles CVS: RRR, normal S1, S2, no murmurs Abdo: Chronically draining periumbilical wound approximately 4 cm in diameter with purulent discharge. Dressings wet with purulence. No blood. There is no surrounding cellulitis. Extremities: no edema, pulses 2+ Rectal exam: preserved voluntary anal tone. No saddle anesthesia. MSK: Left arm in dressing clean and intact. Able to move fingers. No cyanosis. Skin: Patient has 2 gluteal ulcers 4.2 x 3.6 cm and 6.4 x 5.8 cm. Stage II. Neuro: no focal neuro deficits, moving all 4 extremities, CN2-12 intact. Strength 5/5 in all 4 extremities. No nystagmus. Psych: calm, cooperative, AAO x 3 LABORATORY DATA, IMAGING STUDIES, MICROBIOLOGY: Please see below. MRI Lumbar spine wo contrast (01/14/21): IMPRESSION: Metastatic lesions involving the L3 and L4 vertebrae with the L4 lesion posterior element involvement extending slightly into the posterior spinal canal without conus compression. No acute pathologic fracture. Severe spinal canal stenosis and foraminal stenoses of degenerative type L2-L3 and L3-L4 particularly and severe bilateral degenerative foraminal stenosis at L4-L5. MRI thoracic spine wo contrast (01/14/21): IMPRESSION: Thoracic spinal cord compression at the T4 level secondary to an infiltrative vertebral lesion involving the vertebral body and posterior elements, with left paraspinous extension. Pathologic vertebral lesions at the T4 and T9 levels as well without spinal cord compression at those levels MRI w contrast L humerus (01/14/21): IMPRESSION: Non expansile mid diaphyseal humeral lesion measuring 13 cm in length, with pathologic fracture through the midportion. No identifiable soft tissue mass or soft tissue infiltrative process DVT prophylaxis ordered?: Muniranox 40 mg subcu daily. ASSESSMENT AND PLAN: 70-year-old male with a past medical history of hypertension, type 2 diabetes, DVT in the right leg in 1988, ongoing work-up of numerous metastatic lesions with osteolytic metastases in ribs left humerus debra rnum T5 vertebral lesion, expansile erosive lesion in the left humerus, primary is yet unknown. Differential diagnosis include prostate cancer versus multiple myeloma. Patient has had a 50 pounds loss in 1 year. Patient was planned for left humeral biopsy and fixation by Dr. Marmolejo in [place] on 01/16/2021. Patient was admitted to [facility] on 01/13/2021 with sepsis requiring admission to ICU. He responded well to IV fluid resuscitation. Is presently receiving Ancef IV. Patient has MRIs and coags scheduled preoperatively. However given the fact that the patient has gram-positive organisms in clusters as well as wound culture positive for group B strep I do not think it is pertinent to proceed with surgical intervention at this time. Dr. Hope has been consulted. According to microbiology the cannot rule out staph aureus at this time. PROBLEMS: Sepsis with lactic acidosis: resolved. C/w ancef. Blood cx positive staph hemolyticus. Periumbilical wound growing Group B strep. Ancef conferted to zosyn. Unclear if MRSA. Awaiting final cx. Dr. Hope consulted. Recs greatly appreciated. Gram positive bacteremia: 1/2 bottles from 01/13/21 growing staph haemolyticus. Repeat cultures ordered on 01/14/21. Dr. Hope consulted. Source possible periumbilical wound vs sacral decub. Convert ancef to zosyn (day 3). Periumbilical draining wound: general surgery consult placed. Hx of hernia repa ir 2011. Cx grew group B strep, enterococcus fecalis and MSSA. Zosyn day 3. DM2: c/w ISS AC and HS. Hypoglycemic precautions. Holding metformin and glimepiride. Diffuse metastatic skeletal lesions: involve posterior R glenoid, R scapula, L lateral 4th rib, R femur, sternrum, posterior R third rib, L humerus 10 cm lesion. Primary as yet unknown. PSA slightly elevated. Ongoing myeloma workup. Has L humerus bx and fixation planned by Dr. Valdez Marmolejo ([facility]) on 01/16/21. I left a message with his office today. I do not believe patient should proceed with surgical fixation until we have adequately worked up infectious process, and treated bacteremia. MRI of thoracic and Lumbar spine ordered. Medical oncology consult placed with Dr. Deshpande, tumor markers ordered. IR consult placed, plan for tissue bx. D/w Dr. Marmolejo. Once patient is stable from sepsis picture, he can be contacted for fixation of L humer fx. L humerus pathological fx: in brace. Unable to appreciate pulses due to brace. Hand numbness. Consulted orthopedic service Dr. Damon. L3/L4 T4/T9 metastatic vertebral lesions: L3 lesion posterior element involvement extending slightly into posterior spinal canal without conus compression. SHRUTHI was performed. Patient has preserved voluntary anal tone. He has preserved sensation of the perineum. No urinary rention, voiding spo ntaneously via condom cath. No fecal incontinence. SHELBY: resolved with IVF. Avoid nephrotoxins HTN: losartan held due to SHELBY. Dispo: pending clinical improvement. D/w , Marilin. All questions were answered in detail. VS, I&O, 24H, Tip Vital Signs/I&O Vital Signs Date Time Temp Pulse Resp B/P (MAP) Pulse Ox O2 Delivery O2 Flow Rate FiO2 01/16/21 12:04 18 01/16/21 08:45 97.7 84 110/72 (85) 96 Room Air 01/12/21 19:06 2.0 I&O- Last 24 Hours up to 6 AM 01/16/21 05:59 Intake Total 858 ml Output Total 1300 ml Balance -442 ml Laboratory Data 24H LABS Laboratory Tests 2 01/15/21 16:38: Bedside Glucose (Misc Panel) 218H 01/15/21 20:44: Bedside Glucose (Misc Panel) 266H 01/16/21 05:23: Nucleated Red Blood Cells % (auto) 0.0, Anion Gap 9, Glomerular Filtration Rate > 60.0, Calcium Level 8.2L 01/16/21 11:49: Bedside Glucose (Misc Panel) 198H CBC/BMP Laboratory Tests 01/16/21 05:23 Microbiology Microbiology 01/14/21 Blood Culture - Preliminary, Resulted No Growth after 48 hours. All Specime... 01/14/21 Blood Culture - Preliminary, Resulted No Growth after 48 hours. All Specime... 01/13/21 Gram Stain - Final, Complete 01/13/21 Wound Culture - Final, Complete Strep Agalactiae Group B Enterococcus Faecalis Staphylococcus Aureus 01/12/21 Urine Culture - Final, Complete 01/12/21 Respiratory Virus Panel (PCR) ([facility]) - Final, Complete 01/12/21 Blood Culture - Preliminary, Resulted No Growth after 72 hours. All specime... 01/12/21 Blood Culture - Final, Complete Staphylococcus Haemolyticus JAELYN PICHARDO MD Jan 16, 2021 13:09
[2021-01-16 14:45] VITALS: BP 110/68
[2021-01-16] MEDS ORDERED: LIDOCAINE 1% MDV 20ML VIAL As Ordered ONE (15:06)
[2021-01-16] MEDS ORDERED: SODIUM BICARBONATE 8.4% INJ 50MEQ 50 ML VIAL As Ordered ONE (15:06)
--- NOTE | 2021-01-16 15:42 | CR.PDOC ---
General Surgery Consultation Date of Consultation 01/16/21 History and Physical CONSULT REPORT FOR: Dr. Chung (hospitalist service) REASON FOR CONSULTATION: Abdominal wound HISTORY OF PRESENT ILLNESS: I was asked by Dr. Chung to see the patient with regards to a chronic draining abdominal wound around his umbilicus. He reportedly has history of multiple/ventral hernia repair. Unknown if he has mesh underneath the area but patient has had this wound for several years up to her above 10 years. He is currently in the hospital known to have multiple metastatic bone lesions of unknown primary. Also he was admitted for sepsis. He had blood cultures did grow Staphylococcus. He tells me he had an emergent laparotomy for bowel obstruction related to a strangulated hernia in 2011 in [place]. Not clear whether the laparotomy incision was closed primarily and he had some subsequent infection or it was left open for secondary healing. He subsequently followed up or was referred to Dr. Stovall by her primary care doctor locally and eventually the wound healed. He developed a recurrence of his ventral incisional hernia and he took him to the OR for what looks like a primary repair done at that time. I reviewed his operative notes in [facility] and there was no mention of the mesh. Unclear what happened afterwards but eventually developed this chronic draining wound on multiple areas of his abdominal incision. Currently he has 3 areas along the incision that has some amount of purulent drainage. He denies fevers or chills. He was not following up with anybody in particular with regards to this wound. He developed pathologic fractures to his left arm and was having difficulty getting around at home and subsequently developed some pressure wound to his buttocks. I was asked by Dr. Chung which to look at his wounds and make recommendations. PAST MEDICAL HISTORY: 1. 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 Diabetes 3. Hypertensive heart disease 4. History of DVT in the right leg in 1988 PAST SURGICAL HISTORY: INCLUDES: 1. Appendectomy -resulted in exploratory laparotomy according to the patient with prolonged ICU stay 2. Emergent incisional hernia repair with bowel resection in [place] in early 2011 3. Open repair of recurrent incisional hernia by Dr. Finnegan in 2011 4. Cataract surgery ALLERGIES: Please see below. HOME MEDICATIONS: Please see below. REVIEW OF SYSTEMS: Patient appears to be in decline for the past month or so, is having difficulty ambulating, being independent. He has severe left arm pain secondary to a pathologic fracture to that arm. Denies any fevers or chills. Reports weight loss. Reports anorexia. Denies changes in bowel habits. Denies bleeding with bowel movements. He was recently seen in the emergency room December 15, 2020 where he was diagnosed with a pathologic fracture. He is being seen by orthopedist in [place] contemplating repair of this. As mentioned in HPI he has a chronic wound from prior midline laparotomy incision. He has not been able to get up and ambulate due to his multiple skeletal problems and that has resulted to some pressure ischemia of part of the skin. He came in and assessed to be dehydrated and septic and has improved with IV fluid hydration as well as antibiotics. PHYSICAL EXAMINATION: VITALS SIGNS: Please see below. GENERAL APPEARANCE: Patient seen laying flat on bed. Looks mildly uncomfortable, reports back pain. He has a sling and his left arm is covered with an Georgi wrap. SKIN: Skin is warm dry. LUNGS: Clear to auscultation bilaterally, anteriorly HEART: Regular heart rate and rhythm. ABDOMEN: Abdomen is rounded, with loose pannus probably from acute weight loss. He has a midline incision that is old. Along the incision or 3 points with drainage. The skin and underlying abdominal wall underneath the incision appears hardened. About 5 or 6 cm above the umbilicus is the first opening and to the left of it seems to be a small subcutaneous collection where I could express a little bit of purulent material. There is no accompanying erythema. The second opening is a couple centimeters below the umbilicus and another couple centimeters below this is another point but does not seem to be draining that much. On all points there is no erythema. I do not feel in particular a noticeable bulging or hernia formation. With the help of the nurse I turned him to his right side and examined the skin around his buttock area. He has loose skin and subcu secondary to weight loss. Roughly about the 4 x 1 cm linear skin necrosis is noted. Below this is a small opening that I do not get any active drainage from. Unclear how deep the skin or soft tissue necrosis is but does not seem to be having any drainage at this time. EXTREMITIES: As mentioned left arm is wrapped with an Georgi bandage. Mild edema both lower extremities. ANCILLARIES: . LABORATORY DATA: Please see below. IMAGING STUDIES: I reviewed the images of CT abdomen pelvis that was done during this recent admission as well as the one on December 15, 2020. IMPRESSION AND PLAN: Chronic wound or sinus tracts along a prior midline abdominal incision. I was reviewing the CT and there is a good amount of inflammation I thought underneath that incision line and my first concern was possible enterocutaneous fistula. There is purulent drainage but no accompanying skin erythema to this openings. He is only minimally tender at the uppermost opening. I do not feel a recurrent hernia though the soft tissue/abdominal wall along the incision line especially on the upper part of the incision line above the umbilicus feels hardened/woody to me. I reviewed the operative report by Dr. Stovall in 2011 and he reports that he did not place the mesh at the area. I do not have a copy of the operative report in [place] where the original strangulated hernia was repaired. It could be is just all chronic abscess, necrosis tissue underneath the area. I will start off with local incision drainage, debridement open up this portions for me to evaluate the status of the tissues underneath. I also looked at the buttock/sacral area and he does have an elongated portion of the right buttock/sacral area with skin necrosis. Seems to be dry. I do not appreciate any active drainage. This is covered with Hydrofera Blue and foam dressing which is appropriate. I will leave this alone for now. I will come back to I&D/debride the midline abdominal abscesses. Vital Signs Vital Signs Date Time Temp Pulse Resp B/P (MAP) Pulse Ox O2 Delivery O2 Flow Rate FiO2 01/15/21 21:39 19 Room Air 01/15/21 14:00 98.0 85 108/70 (83) 95 01/12/21 19:06 2.0 I&Os I&O- Last 24 Hours up to 6 AM 01/16/21 06:00 Intake Total 408 ml Output Total 600 ml Balance -192 ml Laboratory Data Labs 24H Laboratory Tests 2 01/15/21 05:26: Tumor Marker Alpha Fetoprotein < 1.3, Carcinoembryonic Antigen < 0.5 01/15/21 05:28: Nucleated Red Blood Cells % (auto) 0.0, Anion Gap 7L, Glomerular Filtration Rate > 60.0, Calcium Level 8.2L, Procalcitonin 2.63 01/15/21 11:30: Bedside Glucose (Misc Panel) 196H 01/15/21 16:38: Bedside Glucose (Misc Panel) 218H 01/15/21 20:44: Bedside Glucose (Misc Panel) 266H CBC/BMP Laboratory Tests 01/15/21 05:28 Microbiology Microbiology 01/14/21 Blood Culture - Preliminary, Resulted No growth after 24 hours . All specim... 01/14/21 Blood Culture - Preliminary, Resulted No growth after 24 hours . All specim... 01/13/21 Gram Stain - Final, Resulted 01/13/21 Wound Culture - Preliminary, Resulted Strep Agalactiae Group B Staphylococcus Aureus 01/12/21 Urine Culture - Final, Complete 01/12/21 Respiratory Virus Panel (PCR) (MEENU) - Final, Complete 01/12/21 Blood Culture - Preliminary, Resulted No Growth after 72 hours. All specime... 01/12/21 Blood Culture - Final, Complete Staphylococcus Haemolyticus Home Medications Scheduled Aspirin (Aspirin) 325 Mg Tablet, 325 MG PO DAILY, (Reported) Furosemide (Furosemide) 20 Mg Tab, 20 MG PO DAILY, (Reported) Glimepiride (Glimepiride) 2 Mg Tab, 2 MG PO DAILY, (Reported) Latanoprost/Pf (Latanoprost 0.005% Eye Drop) 7.5 Ml Drops, 1 DROP OU QHS, (Rep orted) Losartan Potassium (Losartan Potassium) 50 Mg Tab, 50 MG PO DAILY, (Reported) Metformin HCl (Metformin HCl) 1,000 Mg Tab, 1,000 MG PO BID, (Reported) Scheduled PRN Hydrocodone/Acetaminophen (Hydrocodone-Acetamin 7.5-325) 1 Each Tablet, 1 TAB PO Q4H PRN for PAIN LEVEL 5-10, (Reported) Allergies Coded Allergies: No Known Allergies (Unverified , 12/15/20) ROSEANNE NICHOLS MD Jan 16, 2021 01:23
[2021-01-16 17:00] VITALS: BP 114/71
--- NOTE | 2021-01-16 17:21 | REP ---
INDICATION: BIOPSY METASTATIC BONE LESIONS. COMPARISON: None. TECHNIQUE: The procedure is performed by Essie Bowman [facility], under the direct supervision of Dr. Henao. The risks and benefits of the procedure were explained to the patient and informed consent was obtained both orally and written. Directly prior to the start of the procedure, a formal timeout was done in the exam room. The L4 vertebral bone lesion was localized using CT guidance. Skin was prepped and draped in the usual sterile fashion. Seven ml of buffered lidocaine was used as a local anesthetic. FINDINGS: Using CT guidance a 17/18 gauge coaxial needle biopsy system was inserted and advanced into the nodule. Six core biopsy samples were obtained and sent to the lab. CT images obtained directly after the biopsy show no evidence of hematoma. After the appropriate amount of monitored convalescence the patient was discharged from the department. IMPRESSION: CT-guided L4 vertebral bone lesion biopsy. <Electronically signed by Essie Bowman > 01/16/21 1712 <Electronically signed by Denis Henao > 01/16/21 1716
[2021-01-16 21:00] VITALS: BP 111/73
[2021-01-16] MEDS ORDERED: RAMELTEON 8 MG TAB (ROZEREM) PO PRN (21:45)
[2021-01-17] MEDS: PIPERACILLIN/TAZOBACTAM SOD 4.5 GM in D5W MINI-BAG PLUS 50 ML IV SCH ×4 (01:23→20:36)
[2021-01-17 05:50] LABS: HEMATOCRIT 30.3 % (42.0-52.0); HEMOGLOBIN 9.3 g/dl (13.5-17.5); MEAN CORPUSCULAR HEMOGLOBIN 27.4 pg (27.0-33.0); MEAN CORPUSCULAR HGB CONC 30.7 g/dl (32.0-36.5); MEAN CORPUSCULAR VOLUME 89.4 fl (80.0-96.0); PLATELET COUNT, AUTOMATED 334 10^3/uL (150-450); RED BLOOD COUNT 3.39 10^6/uL (4.30-6.10); WHITE BLOOD COUNT 8.8 10^3/uL (4.0-10.0)
[2021-01-17 06:14] LABS: BLOOD UREA NITROGEN 14 MG/DL (7-18); CALCIUM LEVEL 8.3 MG/DL (8.8-10.2); CARBON DIOXIDE LEVEL 26 MEQ/L (21-32); CHLORIDE LEVEL 108 MEQ/L (98-107); CREATININE FOR GFR 0.77 MG/DL (0.70-1.30); GLOMERULAR FILTRATION RATE > 60.0 (>42); GLUCOSE, FASTING 191 MG/DL (70-100); POTASSIUM SERUM 4.5 MEQ/L (3.5-5.1); SODIUM LEVEL 140 MEQ/L (136-145)
[2021-01-17 06:37] VITALS: BP 137/76
[2021-01-17] MEDS: ENOXAPARIN 40MG/0.4ML SYRINGE (J1650 PER 10MG) SC SCH (08:55)
[2021-01-17] MEDS: ANEXSIA, NORCO 7.5MG/325MG TABLET(HYDROCODONE/APAP) PO PRN ×3 (08:55→20:38)
[2021-01-17] MEDS: HumaLOG INSULIN (NovoLOG) PER UNIT SC SCH ×4 (08:56→20:37)
--- NOTE | 2021-01-17 10:00 | CR ---
CONSULTATION DATE: 01/16/2021 CHIEF COMPLAINT: Left arm swelling. HISTORY OF PRESENT ILLNESS: This is a patient who was asked for me to see by the hospitalist, Dr. Ibrahim today. There are concerns for arm swelling. The patient has a known diffuse, possibly metastatic disease pending biopsy with a pathologic left humerus fracture. He is pending formal operative management by Dr. Marmolejo, the tumor orthopedic oncologist in [place]. PAST MEDICAL HISTORY: 1. Hypotensive shock. 2. Diabetes. 3. Diffuse metastatic skeletal disease. 4. Acute kidney injury. 5. Hypotension. 6. DVT. 7. Hypertension. 8. Abdominal adhesions. 9. Right femoral neck lesion. PAST SURGICAL HISTORY: 1. Bilateral cataract surgery. 2. Left large scrotal hydrocele, left testicle. 3. Appendectomy. 4. Incarcerated bowel resection. 5. Incisional hernia repair. SOCIAL HISTORY: He is . Per Dr. Hope's consultation, lives with his . PHYSICAL EXAMINATION: This is a 70-year-old man. He responds appropriately. He is alert and oriented. His vital signs are stable. There is a posterior/above elbow posterior splint wrapped with an Georgi bandage, left upper extremity. Compartments are soft. No pain with passive stretch. There is some mild pain to palpation in the mid-humerus. There is a little bit of prominence there anteriorly. Minimal swelling. Some mild swelling, dorsum of the hand. Normal sensation and motor function to median, radial and ulnar nerves as well as AIN/PIN. Hand is warm and well perfused. Good radial pulse. MRI: The left humerus demonstrates just nonexpansile midaxial humeral lesion measuring 13 cm in length, with pathologic fracture through the midportion. No identifiable soft tissue mass or soft tissue infiltrative process. ASSESSMENT AND PLAN: This 70-year-old man with a pathologic left humerus fracture. I see no concerning or acute features today or concerns with perfusion or compartment syndrome. I recommend that the plan as previously discussed with the patient should be carried on which is being assessed by orthopedic tumor oncologist, Dr. Marmolejo in [place] and keep the splint on for pain control at this point.
--- NOTE | 2021-01-17 10:00 | IPN ---
PROGRESS NOTE DATE: 01/16/2021 Mr. Miller complains of diffuse body aches. He states his whole skeleton hurts, and he is not able to move. He also has pain in his sacral area, where he has two decubitus. He has a condom catheter. He had a bone marrow biopsy done this afternoon. LABORATORY DATA: White count 7.9, hemoglobin 9, hematocrit 29.7, platelets 314. Sodium 139, potassium 4.4, chloride 105, bicarbonate 25, BUN 15, creatinine 0.81, glucose 199, calcium 8.2. Alpha fetoprotein less than 1.3. Carcinoembryonic antigen CEA less than 0.5. Procalcitonin 2.6. Norge chain was 67.9, lambda light chain 50.4, both elevated. SPEP showed atypical shape of gamma region noted. Unable to definitely determine the presence of bands. Suggest followup in 6 months. Patient had a bone marrow biopsy done by Essie MCDERMOTT of the L4 vertebral body lesion. Bilateral lower extremity arterial studies showed moderate plaque seen bilaterally but no stenosis. PHYSICAL EXAMINATION: Temperature is 98.1, pulse 84, respirations 18, blood pressure 114/71, oxygen saturation 95% on room air. HEART: Normal S1, S2. No murmurs, rubs, or gallops. LUNGS: Clear. No wheezes, rales, or rhonchi. ABDOMEN: Nontender with multiple scars, vertical, with three draining sinus tracts. Two ulcerations on the superior aspect of the scar measure about 2 x 1 cm with purulent drainage and a smaller one on the inferior aspect of the scar. He has bilateral sacral buttock decubitus ulcers. The left butt cheek has a stage I with erythema and sloughing of the skin, measuring 3 x 1 cm, and the right buttock has a much larger ulceration measuring about 10 cm x 3 cm with black necrotic tissue. There is no purulence. Abdominal cultures had group B streptococcus, Enterococcus (E) faecalis, methicillin-sensitive Staphylococcus aureus (MSSA). Blood cultures: No growth on January 14 times two sets. One out of two sets on January 12 had Staphylococcus hemolyticus, which is a skin contaminant. MEDICATIONS: Zosyn 4.5 grams every 6 hours, currently day 3. IMPRESSION: Abdominal wall infection with sinus tract, chronic draining sinuses. Sinus tract from surgery probably 2011 according to the patient. Currently on IV Zosyn for culture, methicillin-sensitive Staphylococcus aureus (MSSA), Enterococcus (E) faecalis, and group B streptococcus. 2. Sacral decubitus ulcers. Currently do not look infected but need debridement. Followed up by Dr. Shaw. 3. Multiple metastatic lesions with status post L4 bone biopsy to rule out multiple myeloma, which is the most likely diagnosis at this point, since he has elevated kappa and lambda chain and abnormal SPEP. Oncology is on board waiting for pathology report. PLAN: Continue IV Zosyn. Further decision on his cancer treatment will depend on the biopsy. Left arm pathologic fracture was supposed to be fixed by Dr. Marmolejo, but this has been canceled at this point until patient is more medically stable.
--- NOTE | 2021-01-17 10:13 | ROOPDOC ---
[facility] Report Of Operation Report of Operation DATE OF PROCEDURE: 01/17/21 PREPROCEDURE DIAGNOSES: Chronic wound and sinus tract abdomen. POSTPROCEDURE DIAGNOSES: Chronic wound and sinus tract abdomen. PROCEDURE PERFORMED: Exploration of wound, debridement chronic wound and sinus tract and abdomen x2. SURGEON: Shelton Shaw MD ANESTHESIA: Local anesthesia using 1% lidocaine containing epinephrine ESTIMATED BLOOD LOSS: 5 mL COMPLICATIONS: None. REMARKS: 70-year-old male with a chronic wound from prior laparotomy incision of the more than 10 years with persistent drainage from at least 3 sinus opening points along the laparotomy incision most prominent of which is at the mid abdomen and below umbilicus. FINDINGS: Epithelialized tract. No abscess. Very hard and fibrotic soft tissue surrounding the wound opening. PDS suture was removed at the bottom of the mid abdominal wound SPECIMENS REMOVED: Prior sutures. DESCRIPTION OF PROCEDURE: Patient consented for incision and drainage, debridement of chronic sinus tract, abscess along the laparotomy wound. I have identified 3 openings one is relatively quiet which is right by the suprapubic area. The active ulcer to mid abdomen and below umbilicus He remained at the bedside. We positioned him supine. We paused for a surgical timeout using both pre-incision safety checklist to verify correct patient, procedure site and additional clinical information prior to beginning the procedure. By bedside nurse helped with retraction of his pannus. Area surrounding the sinus tract openings are prepped with Betadine solution and sterile drapes placed. I infiltrated the skin and soft tissue surrounding the opening with 1% lidocaine containing epinephrine. I started with the wound opening below the umbilicus, the wound opening was enlarged with creating a cruciate incision and deepened through the fibrotic soft tissue with the seems to go underneath superiorly to the point that I was not able to see the depth of the wound. I just used a curette to debride the wall. This was temporarily packed I then moved onto the mid abdominal wound. He has 3 shallow wound openings near each other. I remove the skin bridges and followed the lateral tract of the wound opening and open the skin up. This reveals epithelialized wall and hard fibrotic soft tissue consistent with the rest of the wound. I did not find any underlying abscess collection. I debrided the wall with a curette to remove the epithelialized covering. The wall still remains hard and fibrotic. Underneath the medial portion of the wound is the knot from the PDS suture that was used f or closure. I pulled it up and cut it the rest of the suture retracted. I further debrided this with a curette. Essentially ended up with a stellate longitudinal wound about 5 x 3 x 1.5 cm. The wound bed was packed with Hydrofera Blue and sterile gauze and placed. Patient tolerated procedure well. . SHELTON SHAW MD Jan 17, 2021 10:13
--- NOTE | 2021-01-17 12:13 | IPNPDOC ---
Date Seen The patient was seen on 01/17/21. Progress Note SUBJECTIVE: Patient seen examined at bedside. He is alert awake and oriented x3. He is status post L4 vertebral biopsy by IR on 01/16/2021. He is undergoing bedside debridement of abdominal wound by Dr. Carmen. Patient is alert oriented denies any chest pain palpitations nausea vomiting diarrhea. His left arm is no longer bothering him. He was assessed by Dr. Signh yesterday evening and no acute changes were made. Patient is currently in his left arm splint for pain control. OBJECTIVE PHYSICAL EXAMINATION: VITAL SIGNS: please see below General: NAD, comfortable HEENT: PERRLA, EOMI, sclerae clear Neck: supple, normal ROM, no JVD Respiratory: lungs CTAB, no wheeze, no rales, no crackles CVS: RRR, normal S1, S2, no murmurs Abdo: Chronically draining periumbilical wound approximately 4 cm in diameter with purulent discharge. Dressings wet with purulence. No blood. There is no surrounding cellulitis. Extremities: no edema, pulses 2+ Rectal exam: preserved voluntary anal tone. No saddle anesthesia. MSK: Left arm in dressing clean and intact. Able to move fingers. No cyanosis. Skin: Bilateral sacral buttock decubitus ulcers. Left cheek has stage I measuring 3.1 cm in the right she has a larger ulceration by 10 x 3 cm with black necrotic tissue. Neuro: no focal neuro deficits, moving all 4 extremities, CN2-12 intact. Strength 5/5 in all 4 extremities. No nystagmus. Psych: calm, cooperative, AAO x 3 LABORATORY DATA, IMAGING STUDIES, MICROBIOLOGY: Please see below. MRI Lumbar spine wo contrast (01/14/21): IMPRESSION: Metastatic lesions involving the L3 and L4 vertebrae with the L4 lesion posterior element involvement extending slightly into the posterior spinal canal without conus compression. No acute pathologic fracture. Severe spinal canal stenosis and foraminal stenoses of degenerative type L2-L3 and L3-L4 particularly and severe bilateral degenerative foraminal stenosis at L4-L5. MRI thoracic spine wo contrast (01/14/21): IMPRESSION: Thoracic spinal cord compression at the T4 level secondary to an infiltrative vertebral lesion involving the vertebral body and posterior elements, with left paraspinous extension. Pathologic vertebral lesions at the T4 and T9 levels as well without spinal cord compression at those levels MRI w contrast L humerus (01/14/21): IMPRESSION: Non expansile mid diaphyseal humeral lesion measuring 13 cm in length, with pathologic fracture through the midportion. No identifiable soft tissue mass or soft tissue infiltrative process DVT prophylaxis ordered?: Lovenox 40 mg subcu daily. 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 Differential diagnosis include prostate cancer versus multiple myeloma. Patient has had a 50 pounds loss in 1 year. Patient was planned for left humeral biopsy and fixation by Dr. Marmolejo in [place] on 01/16/2021. Patient was admitted to [facility] on 01/13/2021 with sepsis requiring admission to ICU. He responded well to IV fluid resuscitation. Is presently receiving Ancef IV. Patient has MRIs and coags scheduled preoperatively. How ever given the fact that the patient has gram-positive organisms in clusters as well as wound culture positive for group B strep I do not think it is pertinent to proceed with surgical intervention at this time. Dr. Hope has been consulted. According to microbiology the cannot rule out staph aureus at this time. PROBLEMS: Sepsis with lactic acidosis: resolved. Blood cx positive staph hemolyticus, skin contaminant. Draining abdo wound cx positive MSSA, enterococcus faecalis, Group B streptococcus. Ancef conferted to [facility], now day 4. Dr. Hope consulted. Recs greatly appreciated. Abdominal wall infection with chronic drainage: Hx of hernia repair 2011. Cx grew group B strep, enterococcus fecalis and MSSA. Zosyn day 4. Dr. Shaw performed bedside debridement. DM2: c/w ISS AC and HS. Hypoglycemic precautions. Holding metformin and glimepiride. Diffuse metastatic skeletal lesions: involve posterior R glenoid, R scapula, L lateral 4th rib, R femur, sternrum, posterior R third rib, L humerus 10 cm lesion. Primary as yet unknown. PSA slightly elevated. Ongoing myeloma workup. Has L humerus bx and fixation planned by Dr. Valdez Marmolejo ([facility]) on 01/16/21. I left a message with his office today. I do not believe patient should proceed with surgical fixation until we have adequately worked up infectious process, and treated bacteremia. MRI of thoracic and Lumbar spine ordered. Medical oncology consult placed with Dr. Deshpande, tumor markers ordered. D/w Dr. Marmolejo. Once patient is stable from sepsis picture, he can be contacted for fixation of L humer fx. L4 vertebral lesion biopsy performed by IR. patient has elevated kappa and lambda chains with an abnormal SPEP. This suggests multiple myeloma. Pathology report pending. L humerus pathological fx: in brace. Unable to appreciate pulses due to brace. Hand numbness. Consulted orthopedic service Dr. Damon. L3/L4 T4/T9 metastatic vertebral lesions: L3 lesion posterior element involvement extending slightly into posterior spinal canal without conus compression. SHRUTHI was performed. Patient has preserved voluntary anal tone. He has preserved sensation of the perineum. No urinary rention, voiding spontaneously via condom cath. No fecal incontinence. SHELBY: resolved with IVF. Avoid nephrotoxins HTN: losartan held due to SHELYB. Dispo: pending clinical improvement. D/w , Marilin. All questions were answered in detail. VS[facility]O Vital Signs Date Time Temp Pulse Resp B/P (MAP) Pulse Ox O2 Delivery O2 Flow Rate FiO2 01/17/21 09:25 18 01/17/21 06:37 98.7 85 137/76 (96) 96 Room Air 01/12/21 19:06 2.0 I&O- Last 24 Hours up to 6 AM 01/17/21 06:00 Intake Total 0 ml Output Total 900 ml Balance -900 ml Laboratory Data 24H LABS Laboratory Tests 2 01/16/21 17:33: Bedside Glucose (Misc Panel) 180H 01/16/21 20:33: Bedside Glucose (Misc Panel) 292H 01/17/21 05:24: Nucleated Red Blood Cells % (auto) 0.0, Anion Gap 6L, Glomerular Filtration Rate > 60.0, Calcium Level 8.3L CBC/BMP Laboratory Tests 01/17/21 05:24 Microbiology Microbiology 01/14/21 Blood Culture - Preliminary, Resulted No Growth after 72 hours. All specime... 01/14/21 Blood Culture - Preliminary, Resulted No Growth after 72 hours. All specime... 01/13/21 Gram Stain - Final, Complete 01/13/21 Wound Culture - Final, Complete Strep Agalactiae Group B Enterococcus Faecalis Staphylococcus Aureus 01/12/21 Urine Culture - Final, Complete 01/12/21 Respiratory Virus Panel (PCR) ([facility]) - Final, Complete 01/12/21 Blood Culture - Preliminary, Resulted No Growth after 72 hours. All specime... 01/12/21 Blood Culture - Final, Complete Staphylococcus Haemolyticus JAELYN PICHARDO MD Jan 17, 2021 12:13
[2021-01-17 14:00] VITALS: BP 104/76
--- NOTE | 2021-01-17 16:02 | RADONC.CN ---
Radiation Oncology Hx/Consult Radiation Oncology Consult Date of Service: Jan 17, 2021 Pt Identifier Paddy Vyas, PREMA is a 70 year old male with a history of left humerus pathologic fracture and pending IMN with Dr. Marmolejo @ [facility], who presented to the ED with sepsis on 01/12/21 and was found while here to have numerous met astatic appearing lesions in the axial and appendicular skeleton. He is s/p L4 biopsy and is seen today for consideration of palliative RT. Diagnosis/Treatment History Oncologic History 2020: Reports he was opening a window in his house when his left arm went 'pop', this was a pathologic fracture. He was seen by [facility] orthopedics and referred to [facility]. He was referred to Dr. Marmolejo in [place] and had IMN placement scheduled for 01/16/21. He however presented to the ED on 01/12/21 with gram+ sepsis/lactic acidosis and FTT. He underwent garcia CT scan and MRI of the thoracic and lumbar spines, these showed no solid primary tumors but did reveal and number of predominantly lytic lesions in the spine and appendicular skeleton. Most concerning T5 has collapsed and there is disruption of the cord signal on T2. L3-4 also has diminished signal on T2. He had no clinically overt signs of cord compression or cauda equina syndrome. L4 biopsy done on 01/17/21. Recent Data: 01/14/21 MRI T spine IMPRESSION: Thoracic spinal cord compression at the T4 level secondary to an infiltrative vertebral lesion involving the vertebral body and posterior elements, with left paraspinous extension. Pathologic vertebral lesions at the T4 and T9 levels as well without spinal cord compression at those levels 01/14/21 MRI L spine IMPRESSION: Metastatic lesions involving the L3 and L4 vertebrae with the L4 lesion posterior element involvement extending slightly into the posterior spinal canal without conus compression. No acute pathologic fracture. Severe spinal canal stenosis and foraminal stenoses of degenerative type L2-L3 and L3-L4 particularly and severe bilateral degenerative foraminal stenosis at L4-L5. 01/14/21 MRI left humerus FINDINGS: Mid diaphyseal acute appearing fracture of the humerus is present without significant displacement or angulation deformity. There is underlying marrow replacement with a medullary lesion in the mid diaphysis measuring 13 cm in length and roughly 3 cm in diameter. Edema within the adjacent soft tissues without an identifiable soft tissue mass or fluid collection. No articular involvement of the shoulder or elbow. Normal osseous alignment involving the shoulder. No evidence of detachment of muscular structures. IMPRESSION: Non expansile mid diaphyseal humeral lesion measuring 13 cm in length, with pathologic fracture through the midportion. No identifiable soft tissue mass or soft tissue infiltrative process Interval History Lazaro reports he feels weak all over and tired. He has pain in the left arm which is manageable. He has some pain in his mid back when he leans forward. He denies numbness or bowel/bladder incontinence. He has not been out of bed since [place]. His appetite is better today. He has lost 20+ pounds unintentionally since August, he also notes an insidious onset exercise intolerance over the past year. He feels chronically fatigued. Past Medical History: Chronic abdominal wound DM2 Chronic hydrocele Past Surgical History: Appendectomy in 1974 Ventral hernia c/b SBO and non-healing abdominal wound Family History: Pancreas cancer mother ( 2020) Social History: 2 pack year former smoker quit 1974 Social drinker Allergies / Meds Allergies: Coded Allergies: No Known Allergies (Unverified , 12/15/20) Home Meds Reported Medications Latanoprost/Pf (Latanoprost 0.005% Eye Drop) 7.5 Ml Drops, 1 DROP OU QHS 01/12/21 Hydrocodone/Acetaminophen (Hydrocodone-Acetamin 7.5-325) 1 Each Tablet, 1 TAB PO Q4H PRN for PAIN LEVEL 5-10 01/12/21 Aspirin (Aspirin) 325 Mg Tablet, 325 MG PO DAILY, TAB 01/12/21 Furosemide (Furosemide) 20 Mg Tab, 20 MG PO DAILY 09/23/16 Losartan Potassium (Losartan Potassium) 50 Mg Tab, 50 MG PO DAILY 09/23/16 Metformin HCl (Metformin HCl) 1,000 Mg Tab, 1000 MG PO BID, TAB 09/21/16 Glimepiride (Glimepiride) 2 Mg Tab, 2 MG PO DAILY, TAB 09/21/16 Discontinued Reported Medications Oxycodone HCl/Acetaminophen (Oxycodone-Acetaminophen 5-325) 1 Each Tablet, 1 TAB PO TIDP PRN for pain MDD 3 Tablet(s) for 5 Days, #15 TAB 12/15/20 Review of Systems Constitutional: Reports: Fatigue, Weight Loss; Denies: Fever Eyes: Denies: Pain HEENT: Denies: Head Aches Skin: Denies: Rash Pulmonary: Reports: Other Symptoms (Wheezing, new) Cardiovascular: Denies: Chest Pain Gastrointestinal: Denies: Abdominal Pain, Hematochezia Genitourinary: Denies: Hematuria Hematologic: Reports: Bruising Musculoskeletal: Reports: Arm pain, Back pain; Denies: Neck pain Neurological: Denies: Weakness, Numbness Psych: Reports: Mood Normal Vital Signs Vital Signs Date Time Temp Pulse Resp B/P (MAP) Pulse Ox O2 Delivery O2 Flow Rate FiO2 01/17/21 13:00 18 01/17/21 06:37 98.7 85 137/76 (96) 96 Room Air 01/12/21 19:06 2.0 General Exam: Alert, Cooperative, No Acute Distress Eye Exam: PERRLA, EOMI ENT EXAM: Atraumatic Neck Exam: Supple; Negative: Lymphadenopathy Chest Exam: Clear to auscultation, Wheezing Heart Exam: Rate Normal Abdomen Exam: Soft, Other (Midline dressing in place) Extremity Exam: Negative: Edema Skin Exam: Nl turgor and temperature Neuro Exam: Normal Speech, Strength at 5/5 X4 ext, Cranial Nerves 3-12 NL Psych Exam: Mental status NL Diagnostic and Laboratory Diagnostic Review Radiologic images, relevant labs and pathology reports were personally reviewed and discussed with Mr. Vyas. Laboratory Tests 01/16/21 05:23 01/17/21 05:24 Laboratory Tests 01/15/21 16:38: Bedside Glucose (Misc Panel) 218H 01/15/21 20:44: Bedside Glucose (Misc Panel) 266H 01/16/21 05:23: White Blood Count 7.9, Red Blood Count 3.29L, Hemoglobin 9.0L, Hematocrit 29.7L, Mean Corpuscular Volume 90.3, Mean Corpuscular Hemoglobin 27.4, Mean Corpuscular Hemoglobin Concent 30.3L, Red Cell Distribution Width 14.2, Platelet Count 314, Nucleated Red Blood Cells % (auto) 0.0, Sodium Level 139, Potassium Level 4.4, Chloride Level 105, Carbon Dioxide Level 25, Anion Gap 9, Blood Urea Nitrogen 14, Creatinine 0.81, Glomerular Filtration Rate > 60.0, Fasting Glucose 199H, Calcium Level 8.2L 01/16/21 11:49: Bedside Glucose (Misc Panel) 198H 01/16/21 17:33: Bedside Glucose (Misc Panel) 180H 01/16/21 20:33: Bedside Glucose (Misc Panel) 292H 01/17/21 05:24: White Blood Count 8.8, Red Blood Count 3.39L, Hemoglobin 9.3L, Hematocrit 30.3L, Mean Corpuscular Volume 89.4, Mean Corpuscular Hemoglobin 27.4, Mean Corpuscular Hemoglobin Concent 30.7L, Red Cell Distribution Width 14.3, Platelet Count 334, Nucleated Red Blood Cells % (auto) 0.0, Sodium Level 140, Potassium Level 4.5, Chloride Level 108H, Carbon Dioxide Level 26, Anion Gap 6L, Blood Urea Nitrogen 14, Creatinine 0.77, Glomerular Filtration Rate > 60.0, Fasting Glucose 191H, Calcium Level 8.3L 01/17/21 12:27: Bedside Glucose (Misc Panel) 233H Assessment and Plan Impression Mr. Vyas is a 70 year old male with a history of left humerus pathologic fracture and pending IMN with Dr. Marmolejo @ [facility], who presented to the ED with sepsis on 01/12/21 and was found while here to have numerous metastatic appearing lesions in the axial and appendicular skeleton. He is s/p L4 biopsy and is seen today for consideration of palliative RT. Stage Pending biopsy results 01/17/21 Performance Status ECOG 3 Plan We had an extensive discussion with Mr. Vyas regarding the diagnosis at hand and available therapeutic options. He is recovering from bacteremia. I reviewed his blood work and imaging to date, which on balance are suggestive of multiple myeloma. Prostate cancer is a less likely possibility given his recent PSA was only 5.3. I discussed the likelihood of myeloma and the general approach to treatment. He has a pending IMN with Dr. Marmolejo in [place]. I discussed that I would recommend we proceed with adjuvant RT after the stephon is placed and he has healed to mitigate the risk of perioperative complications and also because I cannot ensure he would proceed to surgery in a timely manner given the current delay imposed by his bacteremia. With respect to the remainder of the bony lesions, T5 is causing impending cord compression and L3-4 is high risk for causing cauda equina syndrome if left unchecked. Because he is captive in-hospital for the time being and these lesions are high risk, I recommend we proceed with RT, 20 Gy in 5 fractions to promote stabilization and mitigate the risk of further fracture or cord compression. We can perform simulation and first treatment on 01/20/21. He may remain in-house for treatment or be discharged home to follow up with me as an outpatient. Lazaro agreed to this course of action. I discussed that he could experience some mild GI symptoms as a result, as well as fatigue, and mild skin reaction. After discussing the risks, benefits and alternatives to radiation therapy, Mr. Vyas was amenable to pursuing radiotherapy. All questions were answered to the patient's satisfaction. We instructed the patient that if there were any questions,concerns or changes in clinical status in the interim to contact us. Recommendations RT to T5 and L3-4 20 Gy in 5 fractions Will defer RT to left humerus until IMN placed Simulation and 1st fraction of treatment to the spinal sites 01/20/21 Billing Statement Total time of [35] minutes was spent preparing for the visit [3], obtaining HPI [8], examining the patient [2], reviewing diagnostic tests [4], discussing management options [8], coordinating care [2], and writing this note [8]. GANESH TRACY MD Jan 17, 2021 16:02
[2021-01-17 22:00] VITALS: BP 115/72
[2021-01-18] MEDS: PIPERACILLIN/TAZOBACTAM SOD 4.5 GM in D5W MINI-BAG PLUS 50 ML IV SCH ×4 (01:38→20:43)
[2021-01-18] MEDS: ANEXSIA, NORCO 7.5MG/325MG TABLET(HYDROCODONE/APAP) PO PRN (01:39)
[2021-01-18 06:03] LABS: RED BLOOD COUNT 3.54 10^6/uL (4.30-6.10)
[2021-01-18 06:04] LABS: HEMATOCRIT 32.2 % (42.0-52.0); HEMOGLOBIN 9.7 g/dl (13.5-17.5); MEAN CORPUSCULAR HEMOGLOBIN 27.4 pg (27.0-33.0); MEAN CORPUSCULAR HGB CONC 30.1 g/dl (32.0-36.5); PLATELET COUNT, AUTOMATED 354 10^3/uL (150-450)
[2021-01-18 06:20] VITALS: BP 78/52
[2021-01-18 06:22] LABS: BLOOD UREA NITROGEN 16 MG/DL (7-18); CALCIUM LEVEL 8.3 MG/DL (8.8-10.2); CARBON DIOXIDE LEVEL 26 MEQ/L (21-32); CHLORIDE LEVEL 106 MEQ/L (98-107); CREATININE FOR GFR 0.86 MG/DL (0.70-1.30); GLOMERULAR FILTRATION RATE > 60.0 (>42); GLUCOSE, FASTING 232 MG/DL (70-100); POTASSIUM SERUM 4.5 MEQ/L (3.5-5.1); SODIUM LEVEL 141 MEQ/L (136-145)
[2021-01-18 06:32] VITALS: BP 98/52
[2021-01-18] MEDS ORDERED: NS 1,000 ML IV ONE (06:40)
[2021-01-18] MEDS ORDERED: NS 500 ML IV ONE (07:10)
[2021-01-18] MEDS: HumaLOG INSULIN (NovoLOG) PER UNIT SC SCH ×4 (07:30→20:43)
[2021-01-18 07:43] LABS: TROPONIN I < 0.02 NG/ML (< 0.10)
[2021-01-18 08:13] VITALS: BP 92/68
[2021-01-18 08:45] VITALS: BP 102/66
[2021-01-18] MEDS: ENOXAPARIN 40MG/0.4ML SYRINGE (J1650 PER 10MG) SC SCH (08:45)
--- NOTE | 2021-01-18 11:21 | IPNPDOC ---
Date Seen The patient was seen on 01/18/21. Progress Note SUBJECTIVE: Patient seen examined at bedside. I was informed patient was hypotensive this morning at approximately 6:30 in the morning. He received 1500 cc normal saline bolus. His blood pressure improved slightly. He remains asymptomatic. His troponin lactic acid within normal limits. Patient denies chest pain palpitations nausea vomiting diarrhea. He denies any worsening pain in his left arm. OBJECTIVE PHYSICAL EXAMINATION: VITAL SIGNS: please see below General: NAD, comfortable HEENT: PERRLA, EOMI, sclerae clear Neck: supple, normal ROM, no JVD Respiratory: lungs CTAB, no wheeze, no rales, no crackles CVS: RRR, normal S1, S2, no murmurs Abdo: Chronically draining periumbilical wound approximately 4 cm in diameter with purulent discharge. Dressings wet with purulence. No blood. There is no surrounding cellulitis. Extremities: no edema, pulses 2+ Rectal exam: preserved voluntary anal tone. No saddle anesthesia. MSK: Left arm in dressing clean and intact. Able to move fingers. No cyanosis. Skin: Bilateral sacral buttock decubitus ulcers. Left cheek has stage I measu ring 3.1 cm in the right she has a larger ulceration by 10 x 3 cm with black necrotic tissue. Neuro: no focal neuro deficits, moving all 4 extremities, CN2-12 intact. Strength 5/5 in all 4 extremities. No nystagmus. Psych: calm, cooperative, AAO x 3 LABORATORY DATA, IMAGING STUDIES, MICROBIOLOGY: Please see below. MRI Lumbar spine wo contrast (01/14/21): IMPRESSION: Metastatic lesions involving the L3 and L4 vertebrae with the L4 lesion posterior element involvement extending slightly into the posterior spinal canal without conus compression. No acute pathologic fracture. Severe spinal canal stenosis and foraminal stenoses of degenerative type L2-L3 and L3-L4 particularly and severe bilateral degenerative foraminal stenosis at L4-L5. MRI thoracic spine wo contrast (01/14/21): IMPRESSION: Thoracic spinal cord compression at the T4 level secondary to an infiltrative vertebral lesion involving the vertebral body and posterior elements, with left paraspinous extension. Pathologic vertebral lesions at the T4 and T9 levels as well without spinal cord compression at those levels MRI w contrast L humerus (01/14/21): IMPRESSION: Non expansile mid diaphyseal humeral lesion measuring 13 cm in length, with pathologic fracture through the midportion. No identifiable soft tissue mass or soft tissue infiltrative process DVT prophylaxis ordered?: Lovenox 40 mg subcu daily. 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 Differential diagnosis include prostate cancer versus multiple myeloma. Patient has had a 50 pounds loss in 1 year. Patient was planned for left humeral biopsy and fixation by Dr. Marmolejo in [place] on 01/16/2021. Patient was admitted to [facility] on 01/13/2021 with sepsis requiring admission to ICU. He responded well to IV fluid resuscitation. Is presently receiving Ancef IV. Patient has MRIs and coags scheduled preoperatively. However given the fact that the patient has gram-positive organisms in clusters as well as wound culture positive for group B strep I do not think it is pertinent to proceed with surgical intervention at this time. Dr. Hope has been consulted. According to microbiology the cannot rule out staph aureus at this time. PROBLEMS: Sepsis with lactic acidosis: resolved. Blood cx positive staph hemolyticus, skin contaminant. Draining abdo wound cx positive MSSA, enterococcus faecalis, Group B streptococcus. Ancef conferted to [facility], now day 5. Dr. Hope consulted. Recs greatly appreciated. Hypotension: BP 78/52. S/p 1500 cc NS bolus. BP improved to 102/66. LA 1.5. Trop <0.02 x 2. Tachypneic however. Will check CTA chest to r/o PE. Abdominal wall infection with chronic drainage: Hx of hernia repair 2011. Cx grew group B strep, enterococcus fecalis and MSSA. [facility] day 5. Dr. Shaw performed bedside debridement. No abscess found. Found knot from PD suture. Removed. Dressed with hydrophera blue. Sacral decub: vashe x 15 min. Apply hydrafera blue. Foam dressing. Offload freq uently. Will consult Dr. Patel if worsens. DM2: c/w ISS AC and HS. Hypoglycemic precautions. Holding metformin and glimepiride. Diffuse metastatic skeletal lesions: involve posterior R glenoid, R scapula, L lateral 4th rib, R femur, sternrum, posterior R third rib, L humerus 10 cm lesion. Primary as yet unknown. PSA slightly elevated. Ongoing myeloma workup. Has L humerus bx and fixation planned by Dr. Valdez Marmolejo ([facility]) on 01/16/21. I left a message with his office today. I do not believe patient should proceed with surgical fixation until we have adequately worked up i nfectious process, and treated bacteremia. MRI of thoracic and Lumbar spine ordered. Medical oncology consult placed with Dr. Deshpande, tumor markers ordered. D/w Dr. Marmolejo. Once patient is stable from sepsis picture, he can be contacted for fixation of L humer fx. L4 vertebral lesion biopsy performed by IR. D/w Dr. Deshpande and reviewed SPEP results. No distinct monoclonal band spike. [place] and lambda ratio wnl. Elevation of alpha and beta globulins. Elevations such as these can be seen in infections and inflammation. at this time, not strongly suggestive of mulitple myeloma, however it is not ruled out. I spoke with pathology lab, Dr. Perez, expect biopsy results on 01/20/21. L humerus pathological fx: Patient was examined by Dr. Damon. No vascular compromise. Brace in place. L3/L4 T4/T9 metastatic vertebral lesions: L3 lesion posterior element involvement extending slightly into posterior spinal canal without conus compression. SHRUTHI was performed. Patient has preserved voluntary anal tone. He has preserved sensation of the perineum. No urinary retention, voiding spontaneously via condom cath. No fecal incontinence. Consulted rad onc Dr. Lama. Plan for RT to T5 and L3-L4 on 01/20/21. SHELBY: resolved with IVF. Avoid nephrotoxins HTN: losartan held due to SHELBY. Dispo: pending clinical improvement. VS, I&O, 24H, Fishbone Vital Signs/I&O Vital Signs Date Time Temp Pulse Resp B/P (MAP) Pulse Ox O2 Delivery O2 Flow Rate FiO2 01/18/21 08:45 102/66 (78) 01/18/21 06:32 22 01/18/21 06:20 97.6 165 96 Room Air 01/12/21 19:06 2.0 I&O- Last 24 Hours up to 6 AM 01/18/21 06:00 Intake Total 1600 ml Output Total 2800 ml Balance -1200 ml Laboratory Data 24H LABS Laboratory Tests 2 01/17/21 12:27: Bedside Glucose (Misc Panel) 233H 01/17/21 16:33: Bedside Glucose (Misc Panel) 267H 01/17/21 20:35: Bedside Glucose (Misc Panel) 217H 01/18/21 05:32: Nucleated Red Blood Cells % (auto) 0.0, Anion Gap 9, Glomerular Filtration Rate > 60.0, Calcium Level 8.3L, Troponin I < 0.02 01/18/21 06:26: Bedside Glucose (Misc Panel) 222H 01/18/21 08:20: Lactic Acid Level 1.5, Troponin I < 0.02 CBC/BMP Laboratory Tests 01/18/21 05:32 Microbiology Microbiology 01/14/21 Blood Culture - Preliminary, Resulted No Growth after 72 hours. All specime... 01/14/21 Blood Culture - Preliminary, Resulted No Growth after 72 hours. All specime... 01/13/21 Gram Stain - Final, Complete 01/13/21 Wound Culture - Final, Complete Strep Agalactiae Group B Enterococcus Faecalis Staphylococcus Aureus 01/12/21 Urine Culture - Final, Complete 01/12/21 Respiratory Virus Panel (PCR) (MEENU) - Final, Complete 01/12/21 Blood Culture - Final, Complete NO GROWTH AFTER 5 DAYS 01/12/21 Blood Culture - Final, Complete Staphylococcus Haemolyticus JAELYN PICHARDO MD Jan 18, 2021 11:21
--- NOTE | 2021-01-18 12:26 | REP ---
INDICATION: tachypnea. COMPARISON: 01/12/2021 TECHNIQUE: Portable FINDINGS: The technique utilized in obtaining the radiograph has magnified the cardiac silhouette and accentuated the interstitial markings. The cardiomediastinal silhouette lung erwin are unchanged. No acute patchy parenchymal opacities or pleural effusions have developed. There is no change in the osseous structures. IMPRESSION: Stable chest <Electronically signed by Alonso Quiroga > 01/18/21 1222
[2021-01-18] MEDS ORDERED: ISOVUE-370 76% 100ML VIAL As Ordered ONE (12:44)
[2021-01-18 13:25] VITALS: BP 98/68
--- NOTE | 2021-01-18 13:31 | REP ---
INDICATION: r/o PE. Hyptensive with tachypnea COMPARISON: 01/12/2021 and 12/16/2020 TECHNIQUE: CT angiography of the chest attention pulmonary arteries after the intravenous administration of 75 cc Isovue 370. FINDINGS: There is excellent visualization of the pulmonary arterial vasculature. There are no focal filling defects present that would be considered consistent with acute pulmonary emboli. There are small bilateral pleural effusions which have developed since the last exam. There is thoracic aortic dilatation status quo. There is no mediastinal or hilar adenopathy. There is no pericardial effusion. There is no change in appearance of the imaged upper abdomen. The imaged osseous structures again show a pathologic T5 compression fracture which has increased slightly in severity compared to the prior exam. Other scattered lucencies are again seen in multiple osseous structures status quo. Evaluation of the lung erwin shows bilateral asymmetric basilar densities increased from the prior exam. There are multiple lung nodules some stable some obscured by the aforementioned curvilinear bibasilar densities. IMPRESSION: 1. There is no evidence of a pulmonary embolus 2. There is evidence of skeletal metastatic disease as described above 3. New bibasilar curvilinear densities likely subsegmental atelectatic changes and seen with concomitant small bilateral pleural effusions. 4. Lung nodules as described above. <Electronically signed by Alonso Quiroga > 01/18/21 [id number]
[2021-01-18 22:00] VITALS: BP 126/66
[2021-01-19] VITALS (36 sets, daily range): BP systolic 76–122; BP diastolic 54–79
[2021-01-19] MEDS: PIPERACILLIN/TAZOBACTAM SOD 4.5 GM in D5W MINI-BAG PLUS 50 ML IV SCH ×4 (01:37→19:57)
[2021-01-19 06:03] LABS: BASO % 0.3 % (0.0-1.0); EOS # 0.2 10^3/uL (0.0-0.5); EOS % 1.7 % (0.0-3.0); HEMATOCRIT 30.1 % (42.0-52.0); HEMOGLOBIN 9.1 g/dl (13.5-17.5); LYMPH # 1.2 10^3/uL (1.5-5.0); LYMPH % 13.1 % (24.0-44.0); MEAN CORPUSCULAR HEMOGLOBIN 27.3 pg (27.0-33.0); MEAN CORPUSCULAR HGB CONC 30.2 g/dl (32.0-36.5); MEAN CORPUSCULAR VOLUME 90.4 fl (80.0-96.0); MONO # 0.6 10^3/uL (0.0-0.8); MONO % 6.2 % (2.0-8.0); NEUTROPHILS # 7.2 10^3/uL (1.5-8.5); NEUTROPHILS % 77.7 % (36.0-66.0); PLATELET COUNT, AUTOMATED 329 10^3/uL (150-450); RED BLOOD COUNT 3.33 10^6/uL (4.30-6.10); WHITE BLOOD COUNT 9.2 10^3/uL (4.0-10.0)
[2021-01-19 06:35] LABS: ALBUMIN 1.4 GM/DL (3.2-5.2); ALT/SGPT 11 U/L (12-78); BILIRUBIN,TOTAL 0.4 MG/DL (0.2-1.0); BLOOD UREA NITROGEN 13 MG/DL (7-18); CALCIUM LEVEL 8.3 MG/DL (8.8-10.2); CARBON DIOXIDE LEVEL 27 MEQ/L (21-32); CHLORIDE LEVEL 106 MEQ/L (98-107); CREATININE FOR GFR 0.72 MG/DL (0.70-1.30); GLOMERULAR FILTRATION RATE > 60.0 (>42); GLUCOSE, FASTING 218 MG/DL (70-100); MAGNESIUM LEVEL 1.9 MG/DL (1.8-2.4); POTASSIUM SERUM 4.4 MEQ/L (3.5-5.1); SODIUM LEVEL 139 MEQ/L (136-145); TOTAL PROTEIN 5.6 GM/DL (6.4-8.2)
[2021-01-19] MEDS: ENOXAPARIN 40MG/0.4ML SYRINGE (J1650 PER 10MG) SC SCH (09:18)
[2021-01-19] MEDS: ANEXSIA, NORCO 7.5MG/325MG TABLET(HYDROCODONE/APAP) PO PRN ×2 (09:20→17:38)
[2021-01-19] MEDS: HumaLOG INSULIN (NovoLOG) PER UNIT SC SCH ×4 (09:20→21:00)
--- NOTE | 2021-01-19 15:03 | ECGEPIP ---
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
--- NOTE | 2021-01-19 15:11 | ECGEPIP ---
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
[2021-01-19 15:49] LABS: NT-PRO BNP 1197 PG/ML (<125); TROPONIN I < 0.02 NG/ML (< 0.10)
[2021-01-19] MEDS ORDERED: NS 500 ML IV ONE ×2 (16:00→19:15)
[2021-01-19] MEDS ORDERED: METOPROLOL 5 MG/5 ML VIAL IV STA (16:18)
--- NOTE | 2021-01-19 16:41 | IPNPDOC ---
Date Seen The patient was seen on 01/19/21. Progress Note SUBJECTIVE: Patient seen examined at bedside. Called by RN. HR to 185. Tele showing afib alternating with SR. Asymptomatic. Denies CP. OBJECTIVE PHYSICAL EXAMINATION: VITAL SIGNS: please see below General: NAD, comfortable HEENT: PERRLA, EOMI, sclerae clear Neck: supple, normal ROM, no JVD Respiratory: mild crackles at lung bases, No rales, no rhonchi, reduced inspiratory effort b/l CVS: RRR, normal S1, S2, no murmurs Abdo: Chronically draining periumbilical wound approximately 4 cm in diameter with purulent discharge. Dressings wet with purulence. No blood. There is no surrounding cellulitis. Extremities: 1+ bilateral pitting LE edema, pulses 2+ Rectal exam: preserved voluntary anal tone. No saddle anesthesia. MSK: Left arm in dressing clean and intact. Able to move fingers. No cyanosis. Skin: Bilateral sacral buttock decubitus ulcers. Left cheek has stage I measuring 3.1 cm in the right she has a larger ulceration by 10 x 3 cm with black necrotic tissue. Neuro: no focal neuro deficits, moving all 4 extremities, CN2-12 intact. Strength 5/5 in all 4 extremities. No nystagmus. Psych: calm, cooperative, AAO x 3 LABORATORY DATA, IMAGING STUDIES, MICROBIOLOGY: Please see below. MRI Lumbar spine wo contrast (01/14/21): IMPRESSION: Metastatic lesions involving the L3 and L4 vertebrae with the L4 lesion posterior element involvement extending slightly into the posterior spinal canal without conus compression. No acute pathologic fracture. Severe spinal canal stenosis and foraminal stenoses of degenerative type L2-L3 and L3-L4 particularly and severe bilateral degenerative foraminal stenosis at L4-L5. MRI thoracic spine wo contrast (01/14/21): IMPRESSION: Thoracic spinal cord compression at the T4 level secondary to an infiltrative vertebral lesion involving the vertebral body and posterior elements, with left paraspinous extension. Pathologic vertebral lesions at the T4 and T9 levels as well without spinal cord compression at those levels MRI w contrast L humerus (01/14/21): IMPRESSION: Non expansile mid diaphyseal humeral lesion measuring 13 cm in length, with pathologic fracture through the midportion. No identifiable soft tissue mass or soft tissue infiltrative process DVT prophylaxis ordered?: Lovenox 40 mg subcu daily. 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 Differential diagnosis include prostate cancer versus multiple myeloma. Patient has had a 50 pounds loss in 1 year. Patient was p lanned for left humeral biopsy and fixation by Dr. Marmolejo in [place] on 01/16/2021. Patient was admitted to [facility] on 01/13/2021 with sepsis requiring admission to ICU. He responded well to IV fluid resuscitation. Is presently receiving Ancef IV. Patient has MRIs and coags scheduled preoperatively. However given the fact that the patient has gram-positive organisms in clusters as well as wound culture positive for group B strep I do not think it is pertinent to proceed with surgical intervention at this time. Dr. Hope has been consulted. According to microbiology the cannot rule out staph aureus at this time. PROBLEMS: Sepsis with lactic acidosis: resolved. Blood cx positive staph hemolyticus, skin contaminant. Draining abdo wound cx positive MSSA, enterococcus faecalis, Group B streptococcus. Ancef conferted to [facility], now day 5. Dr. Hope consulted. Recs greatly appreciated. Hypotension: occured overnight 01/18/21, was given 1500 cc NS bolus. Cardiac enzymes wnl. BP normalized. CTA chest PE ruloed. Abdominal wall infection with chronic drainage: Hx of hernia repair 2011. Cx g rew group B strep, enterococcus fecalis and MSSA. [facility] day 5. Dr. Shaw performed bedside debridement. No abscess found. Found knot from PD suture. Removed. Dressed with hydrophera blue. new onset afib with RVR: HR 185. SVT seen on tele. Asymptomatic BP 116/73. Trop < 0.02 x 2. LA 2.9. Received 1500 cc NS in past 24 hrs. CTA PE negative. has 1+ pitting edema. BNP 1200. D/w Dr. Frias. Concern for fluid overload. Check CXR. obtain 2D echo. Will transfer to PCU. Give 5 mg IV metoprolol x3. Give lasix 60 mg IV. Monitor. start eliquis 5 mg BID. Sacral decub: vashe x 15 min. Apply hydrafera blue. Foam dressing. Offload frequently. Will consult Dr. Patel if worsens. DM2: c/w ISS AC and HS. Hypoglycemic precautions. Holding metformin and glimepiride. Diffuse metastatic skeletal lesions: involve posterior R glenoid, R scapula, L lateral 4th rib, R femur, sternrum, posterior R third rib, L humerus 10 cm lesion. Primary as yet unknown. PSA slightly elevated. Ongoing myeloma workup. Has L humerus bx and fixation planned by Dr. Valdez Marmolejo ([facility]) on 01/16/21. I left a message with his office today. I do not believe patient should proceed with surgical fixation until we have adequately worked up infectious process, and treated bacteremia. MRI of thoracic and Lumbar spine ordered. Medical oncology consult placed with Dr. Deshpande, tumor markers ordered. D/w Dr. Marmolejo. Once patient is stable from sepsis picture, he can be contacted for fixation of L humer fx. L4 vertebral lesion biopsy performed by IR. D/w Dr. Deshpande and reviewed SPEP results. No distinct monoclonal band spike. [place] and lambda ratio wnl. Elevation of alpha and beta globulins. Elevations such as th trever can be seen in infections and inflammation. at this time, not strongly suggestive of mulitple myeloma, however it is not ruled out. I spoke with pathology lab, Dr. Perez, expect biopsy results on 01/20/21. L humerus pathological fx: Patient was examined by Dr. Damon. No vascular compromise. Brace in place. L3/L4 T4/T9 metastatic vertebral lesions: L3 lesion posterior element involvement extending slightly into posterior spinal canal without conus c ompression. SHRUTHI was performed. Patient has preserved voluntary anal tone. He has preserved sensation of the perineum. No urinary retention, voiding spontaneously via condom cath. No fecal incontinence. Consulted rad onc Dr. Lama. Plan for RT to T5 and L3-L4 on 01/20/21. SHELBY: resolved with IVF. Avoid nephrotoxins HTN: losartan held due to SHELBY. Dispo: pending clinical improvement. I spoke with the patient's daughter Zaki Vyas (tel: [phone]). I answered her questions and provided with an update. She understands that we are pending pathology results. CODE STATUS: FULL CODE. VS, I&O, 24H, Fishbone Vital Signs/I&O Vital Signs Date Time Temp Pulse Resp B/P (MAP) Pulse Ox O2 Delivery O2 Flow Rate FiO2 01/19/21 14:32 98.4 102 16 116/73 (87) 96 Room Air I&O- Last 24 Hours up to 6 AM 01/19/21 06:00 Intake Total 1705 ml Output Total 1950 ml Balance -245 ml Laboratory Data 24H LABS Laboratory Tests 2 01/18/21 16:57: Bedside Glucose (Misc Panel) 234H 01/18/21 20:36: Bedside Glucose (Misc Panel) 200H 01/19/21 05:31: Immature Granulocyte % (Auto) 1.0, Neutrophils (%) (Auto) 77.7H, Lymphocytes (%) (Auto) 13.1L, Monocytes (%) (Auto) 6.2, Eosinophils (%) (Auto) 1.7, Basophils (%) (Auto) 0.3, Neutrophils # (Auto) 7.2, Lymphocytes # (Auto) 1.2L, Monocytes # (Auto) 0.6, Eosinophils # (Auto) 0.2, Basophils # (Auto) 0.0, Nucleated Red Blood Cells % (auto) 0.0, Anion Gap 6L, Glomerular Filtration Rate > 60.0, Calcium Level 8.3L, Magnesium Level 1.9, Total Bilirubin 0.4, Aspartate Amino Transf (AST/SGOT) 13, Alanine Aminotransferase (ALT/SGPT) 11L, Alkaline Phosphatase 76, Total Protein 5.6L, Albumin 1.4L, Albumin/Globulin Ratio 0.3 01/19/21 11:15: Bedside Glucose (Misc Panel) 269H 01/19/21 14:52: Lactic Acid Level 2.9*H, Troponin I < 0.02, CA-Lsk-P-Type Natriuretic Peptide 1197H CBC/BMP Laboratory Tests 01/19/21 05:31 Microbiology Microbiology 01/14/21 Blood Culture - Final, Complete NO GROWTH AFTER 5 DAYS 01/14/21 Blood Culture - Final, Complete NO GROWTH AFTER 5 DAYS 01/13/21 Gram Stain - Final, Complete 01/13/21 Wound Culture - Final, Complete Strep Agalactiae Group B Enterococcus Faecalis Staphylococcus Aureus 01/12/21 Urine Culture - Final, Complete 01/12/21 Respiratory Virus Panel (PCR) ([facility]U) - Final, Complete 01/12/21 Blood Culture - Final, Complete NO GROWTH AFTER 5 DAYS 01/12/21 Blood Culture - Final, Complete Staphylococcus Haemolyticus JAELYN PICHARDO MD Jan 19, 2021 16:41
[2021-01-19] MEDS ORDERED: FUROSEMIDE 100MG/10ML VIAL (J1940) IV ONE (17:00)
[2021-01-19] MEDS: ASPIRIN 81MG ENTERIC TABLET PO SCH (17:31)
[2021-01-19] MEDS: METOPROLOL TART 25 MG TABLET PO SCH (17:36)
--- NOTE | 2021-01-19 18:12 | REP ---
INDICATION: suspect fluid overload. COMPARISON: Portable chest, 01/18/2021. TECHNIQUE: Upright portable chest image was obtained. FINDINGS: There is cardiomegaly and aortic ectasia consistent with benign essential hypertension. The lungs are clear. The visualized osseous structures are unremarkable. IMPRESSION: Findings consistent with hypertension. No evidence of acute cardiopulmonary pathology. <Electronically signed by Valdez Rico > 01/19/21 [id number]
[2021-01-19] MEDS: METOPROLOL 5 MG/5 ML VIAL IV SCH ×3 (18:45→18:55)
[2021-01-19] MEDS ORDERED: DIGOXIN INJ 0.5 MG/2 ML AMP (J1160) IV STA ×2 (18:52→18:56)
[2021-01-19] MEDS: APIXABAN 5 MG TAB (ELIQUIS) PO SCH (19:57)
--- NOTE | 2021-01-19 22:15 | REPVR ---
PROCEDURE INFORMATION: Exam: US Duplex Lower Extremity Veins, Bilateral Exam date and time: 01/19/2021 8:56 PM Age: 70 years old Clinical indication: Edema, localized; Lower extremity, bilateral; Additional info: R/O dvt TECHNIQUE: Imaging protocol: Real-time duplex ultrasound of the extremities with 2-D carrero scale, color Doppler flow and spectral waveform analysis with image documentation. Complete exam focused on the bilateral lower extremity veins. COMPARISON: US BILAT LOWER EXTREM ARTERIAL 01/15/2021 6:12 PM FINDINGS: Right deep veins: Unremarkable. The common femoral, femoral and popliteal veins are patent without thrombus. Normal Doppler waveforms. Normal compressibility and/or augmentation response. Right superficial veins: Saphenofemoral junction is patent without thrombus. Left deep veins: Heterogeneous, nonocclusive thrombus in the popliteal vein, extending into the tibioperoneal trunk. The common femoral and femoral veins are patent without thrombus. Left superficial veins: Saphenofemoral junction is patent without thrombus. Soft tissues: Unremarkable. IMPRESSION: Heterogeneous, nonocclusive thrombus in the left popliteal vein, extending into the tibioperoneal trunk. Electronically signed by: David Gonzalez On 01/19/2021 22:15:13 PM
[2021-01-20] VITALS (25 sets, daily range): BP systolic 85–124; BP diastolic 51–80
[2021-01-20] MEDS: DIGOXIN INJ 0.5 MG/2 ML AMP (J1160) IV SCH ×2 (01:03→07:02)
[2021-01-20] MEDS: METOPROLOL TART 25 MG TABLET PO SCH ×3 (02:19→18:00)
[2021-01-20] MEDS: PIPERACILLIN/TAZOBACTAM SOD 4.5 GM in D5W MINI-BAG PLUS 50 ML IV SCH ×4 (02:19→19:52)
[2021-01-20 05:25] LABS: BASO % 0.2 % (0.0-1.0); EOS # 0.2 10^3/uL (0.0-0.5); EOS % 1.7 % (0.0-3.0); HEMOGLOBIN 9.4 g/dl (13.5-17.5); LYMPH # 1.6 10^3/uL (1.5-5.0); LYMPH % 12.4 % (24.0-44.0); MEAN CORPUSCULAR HEMOGLOBIN 27.3 pg (27.0-33.0); MEAN CORPUSCULAR HGB CONC 30.3 g/dl (32.0-36.5); MEAN CORPUSCULAR VOLUME 90.1 fl (80.0-96.0); MONO # 0.7 10^3/uL (0.0-0.8); MONO % 5.6 % (2.0-8.0); NEUTROPHILS # 10.4 10^3/uL (1.5-8.5); PLATELET COUNT, AUTOMATED 372 10^3/uL (150-450); RED BLOOD COUNT 3.44 10^6/uL (4.30-6.10); WHITE BLOOD COUNT 13.2 10^3/uL (4.0-10.0)
[2021-01-20 05:46] LABS: ALBUMIN 1.5 GM/DL (3.2-5.2); ALT/SGPT 11 U/L (12-78); BILIRUBIN,TOTAL 0.4 MG/DL (0.2-1.0); BLOOD UREA NITROGEN 17 MG/DL (7-18); CALCIUM LEVEL 8.2 MG/DL (8.8-10.2); CARBON DIOXIDE LEVEL 26 MEQ/L (21-32); CHLORIDE LEVEL 102 MEQ/L (98-107); CREATININE FOR GFR 0.91 MG/DL (0.70-1.30); GLOMERULAR FILTRATION RATE > 60.0 (>42); GLUCOSE, FASTING 226 MG/DL (70-100); MAGNESIUM LEVEL 1.9 MG/DL (1.8-2.4); POTASSIUM SERUM 4.3 MEQ/L (3.5-5.1); SODIUM LEVEL 138 MEQ/L (136-145); TOTAL PROTEIN 5.8 GM/DL (6.4-8.2)
[2021-01-20] MEDS: APIXABAN 5 MG TAB (ELIQUIS) PO SCH ×2 (06:15→18:20)
[2021-01-20] MEDS: HumaLOG INSULIN (NovoLOG) PER UNIT SC SCH ×4 (07:50→21:10)
[2021-01-20] MEDS ORDERED: FUROSEMIDE 40MG/4ML VIAL (J1940) IV SCH (09:00)
[2021-01-20] MEDS: ASPIRIN 81MG ENTERIC TABLET PO SCH (09:37)
--- NOTE | 2021-01-20 11:04 | ECGEPIP ---
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
[2021-01-20] MEDS: ANEXSIA, NORCO 7.5MG/325MG TABLET(HYDROCODONE/APAP) PO PRN ×2 (13:49→20:23)
--- NOTE | 2021-01-20 15:35 | RADENCPD ---
Date/Time of Encounter Date of Encounter: Jan 20, 2021 Time of Encounter: 15:23 Encounter Met with patient and his as well as ICU nursing at bedside. Paddy has decided for DNR/DNI status. Explained the hope for cancer treatment outside of palliative RT to the spine would be contingent upon functional recovery. Also broached hospice as an alternative mode of care in the event that he does not improve clinically on this admission. I left my office number for his to direct any calls or questions related to his cancer. GANESH TRACY MD Jan 20, 2021 15:35
--- NOTE | 2021-01-20 21:05 | IPNPDOC ---
Date Seen The patient was seen on 01/20/21. Progress Note SUBJECTIVE: Paddy was seen and examined this morning at bedside. He reports continued decreased appetite, as well as chronic mid and lower back pain. He continues to feel quite fatigued. He denies any current or overnight chest pain or palpitations in the setting of his new onset A. fib with RVR. He would like to discuss goals of care today at some point. He denies any current or overnight fever, chills, night sweats, dyspnea, nausea, or vomiting. OBJECTIVE PHYSICAL EXAMINATION: VITAL SIGNS: Please see below. GENERAL: Pale ill-appearing male lying upright in bed. HEENT: Normocephalic, atraumatic. Wearing eyeglasses. Patient's has facial pallor as well as conjunctival pallor. CARDIOVASCULAR: Regular rate, irregularly irregular rhythm. Heart sounds are quite faint making it difficult to appreciate for murmurs. Normal S1, S2. Radial pulses are equal bilaterally. RESPIRATORY: Decreased tidal volume with poor respiratory effort. Due to patient's pain only able to auscultate anteriorly and laterally. There were some right lower lobe crackles appreciated with no wheezing or rhonchi. No accessory muscle use. Breathing on 2 L nasal cannula. ABDOMINAL: There are 2 periumbilical wounds with Hydrofera Blue dressing in place. Each wound is approximately 3 to 4 cm in diameter. There is no active discharge nor bleeding. There is no surrounding erythema or induration. Hypoactive bowel sounds throughout. No guarding or rigidity appreciated. Genitourinary: Zamarripa catheter remains in place draining [id number] urine. EXTREMITIES: There remains brace and wrap over the left upper extremity with some mild to moderate associated swelling of the left upper extremity. Patient has bilateral unna boots on. There is bilateral 2+ popliteal pulses. Onyc homycosis present. Skin: In addition to the abdominal wounds listed in the abdominal section, there remains bilateral sacral decubitus ulcers. Ulcer on the left cheek is stage I measuring approximately 3 cm. Ulcer on the right cheek is considerably larger at approximately 3 cm x 10 cm. NEUROLOGICAL: No gross focal neurologic deficits appreciated. Nondysarthric speech. PSYCHOLOGICAL: Calm and cooperative but quite concerned overall about current state. LABORATORY DATA, IMAGING STUDIES, MICROBIOLOGY: Please see below. MRI Lumbar spine wo contrast (01/14/21): IMPRESSION: Metastatic lesions involving the L3 and L4 vertebrae with the L4 lesion posterior element involvement extending slightly into the posterior spinal canal without conus compression. No acute pathologic fracture. Severe spinal canal stenosis and foraminal stenoses of degenerative type L2-L3 and L3-L4 particularly and severe bilateral degenerative foraminal stenosis at L4-L5. MRI thoracic spine wo contrast (01/14/21): IMPRESSION: Thoracic spinal cord compression at the T4 level secondary to an infiltrative vertebral lesion involving the vertebral body and posterior elements, with left paraspinous extension. Pathologic vertebral lesions at the T4 and T9 levels as well without spinal cord compression at those levels MRI w contrast L humerus (01/14/21): IMPRESSION: Non expansile mid diaphyseal humeral lesion measuring 13 cm in length, with pathologic fracture through the midportion. 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 Differential diagnosis include prostate cancer versus multiple myeloma. Patient has had a 50 pounds loss in 1 year. Patient was planned for left humeral biopsy and fixation by Dr. Marmolejo in [place] on 01/16/2021. Patient was admitted to [facility] on 01/13/2021 with sepsis requiring admission to ICU. He responded well to IV fluid resuscitation. Given the fact that the patient has gram-positive organisms in clusters as well as wound culture positive for group B strep, surgical intervention for left humeral fracture not indicated. PROBLEMS: Sepsis with lactic acidosis: resolved. Blood cx positive staph hemolyticus, skin contaminant. Draining abdo wound cx positive MSSA, enterococcus faecalis, Group B streptococcus. Ancef conferted to [facility], now day 7. Dr. Hope consulted. Recs greatly appreciated. Hypotension: Borderline hypotensive this morning on exam. He did have an episode of hypotension on the overnight of 01/18/2021 was given 1500 cc NS bolus. Cardiac enzymes wnl. BP normalized. CTA chest PE ruled out. Abdominal wall infection with chronic drainage: Hx of hernia repair 2011. Cx grew group B strep, enterococcus fecalis and MSSA. [facility] day 5. Dr. Barayuga performed bedside debridement. No abscess found. Found knot from PD suture. Removed. Dressed with hydrophera blue. new onset afib with RVR, improved: -Plan evaluation this morning, patient's heart rates were in the mid to upper 80s. He had just been given a 0.25 dose of digoxin about an hour prior. Patient has a scheduled echocardiogram this morning. -Hospitalist services formally consulted cardiology (Dr. Frias), who will be seeing patient. Patient denied any chest pain or palpitations this morning. -Patient was borderline hypotensive this morning during our examination. Trop < 0.02 x 2. LA 2.9. Received 1500 cc NS in past 24 hrs. CTA PE negative. has 1+ pitting edema. BNP 1200. D/w Dr. Frias. Concern for fluid overload. Check CXR. obtain 2D echo. Will transfer to PCU. Give 5 mg IV metoprolol x3. Give lasix 60 mg IV. Monitor. start eliquis 5 mg BID. Sacral decub: vashe x 15 min. Apply hydrafera blue. Foam dressing. Offload frequently. Will consult Dr. Patel if worsens. DM2: c/w ISS AC and HS. Hypoglycemic precautions. Holding metformin and glimepiride. Diffuse metastatic skeletal lesions: involve posterior R glenoid, R scapula, L lateral 4th rib, R femur, sternrum, posterior R third rib, L humerus 10 cm lesion. Primary as yet unknown. PSA slightly elevated. Ongoing myeloma workup. Has L humerus bx and fixation planned by Dr. Valdez Marmolejo ([facility]) on 01/16/21. We do not believe patient should proceed with surgical fixation until we have adequately worked up infectious process, and treated bacteremia. MRI of thoracic and Lumbar spine ordered. Medical oncology consult placed with Dr. Deshpande, tumor markers ordered. Discussed the case with Dr. Alvares who reviewed S PEP results. No distinct monoclonal band spike with kappa and lambda increased. Elevation such as these can be seen in infections and inflammation, multiple myeloma not strongly suggestive at this time but has not been ruled out. -L4 vertebral lesion biopsy performed by IR yesterday and results showed poorly differentiated neoplasm which aligns with poor prognosis. We discussed with the patient himself this morning the results of this pathology biopsy. L humerus pathological fx: Patient was examined by Dr. Damon. No vascular compromise. Brace in place. L3/L4 T4/T9 metastatic vertebral lesions: L3 lesion posterior element involvement extending slightly into posterior spinal canal without conus compression. SHRUTHI was performed. Patient had preserved voluntary anal tone on prior examination. He has preserved sensation of the perineum. No urinary retention, voiding spontaneously via condom cath. No fecal incontinence. -Consulted rad onc Dr. Lama. Plan for RT to T5 and L3-L4 on 01/21/21; this was initially deferred in the setting of patient's acute A. fib with RVR. SHELBY: resolved with IVF. Avoid nephrotoxins HTN: losartan held due to SHELBY. Dispo: Patient is now DNR/DNI and will be receiving palliative radiation for spinal metastatic lesions tomorrow. Continuing to assess goals of care and possible placement. We spoke with the patient's daughter Zaki Vyas (tel: [phone]) yesterday; all of her questions were answered to her satisfaction. CODE STATUS: DNR/DNI. VS, I&O, 24H, [facility] Vital Signs/I&O Vital Signs Date Time Temp Pulse Resp B/P (MAP) Pulse Ox O2 Delivery O2 Flow Rate FiO2 01/20/21 21:04 18 Room Air 01/20/21 20:00 99.0 106 98/58 (71) 99 01/20/21 10:00 2.0 I&O- Last 24 Hours up to 6 AM 01/20/21 06:00 Intake Total 1545 ml Output Total 4225 ml Balance -2680 ml Laboratory Data 24H LABS Laboratory Tests 2 01/20/21 04:22: Immature Granulocyte % (Auto) 1.1, Neutrophils (%) (Auto) 79.0H, Lymphocytes (%) (Auto) 12.4L, Monocytes (%) (Auto) 5.6, Eosinophils (%) (Auto) 1.7, Basophils (%) (Auto) 0.2, Neutrophils # (Auto) 10.4H, Lymphocytes # (Auto) 1.6, Monocytes # (Auto) 0.7, Eosinophils # (Auto) 0.2, Basophils # (Auto) 0.0, Nucleated Red Blood Cells % (auto) 0.0, Anion Gap 10, Glomerular Filtration Rate > 60.0, Calcium Level 8.2L, Magnesium Level 1.9, Total Bilirubin 0.4, Aspartate Amino Transf (AST/SGOT) 23, Alanine Aminotransferase (ALT/SGPT) 11L, Alkaline Phosphatase 79, Total Protein 5.8L, Albumin 1.5L, Albumin/Globulin Ratio 0.3 01/20/21 06:57: Bedside Glucose (Misc Panel) 223H 01/20/21 11:34: Bedside Glucose (Misc Panel) 287H 01/20/21 17:41: Bedside Glucose (Misc Panel) 275H 01/20/21 21:03: Bedside Glucose (Misc Panel) 269H CBC/BMP Laboratory Tests 01/20/21 04:22 Microbiology Microbiology 01/20/21 Blood Culture, Received Pending 01/20/21 Blood Culture, Received Pending 01/14/21 Blood Culture - Final, Complete NO GROWTH AFTER 5 DAYS 01/14/21 Blood Culture - Final, Complete NO GROWTH AFTER 5 DAYS 01/13/21 Gram Stain - Final, Complete 01/13/21 Wound Culture - Final, Complete Strep Agalactiae Group B Enterococcus Faecalis Staphylococcus Aureus 01/12/21 Urine Culture - Final, Complete 01/12/21 Respiratory Virus Panel (PCR) (MEENU) - Final, Complete 01/12/21 Blood Culture - Final, Complete NO GROWTH AFTER 5 DAYS 01/12/21 Blood Culture - Final, Complete Staphylococcus Haemolyticus GME ATTESTATION GME ATTESTATION My faculty preceptor for this patient encounter was physically present during the encounter and was fully available. All aspects of the patient interview, examination, medical decision making process, and medical care plan development were reviewed and approved by the faculty preceptor. The faculty preceptor is aware and concurs with the plan as stated in the body of this note and will attest to such by his/her cosignature. ATTENDING NOTE I, Elijah Ibrahim MD, have independently examined this patient and performed my own physical exam, as well as reviewed the documentation and edited where necessary. I have discussed in detail with the resident the findings and plan of treatment as documented by the resident and edited their note. I agree with their findings and treatment plan and have edited their documentation. I will continue to follow the patient during this hospital stay. VALDEZ PERDOMO D.O. Jan 20, 2021 21:05 ELIJAH IBRAHIM MD Feb 04, 2021 08:03
[2021-01-21] VITALS (9 sets, daily range): BP systolic 98–120; BP diastolic 57–78
[2021-01-21] MEDS: METOPROLOL TART 25 MG TABLET PO SCH ×3 (01:43→18:00)
[2021-01-21] MEDS: PIPERACILLIN/TAZOBACTAM SOD 4.5 GM in D5W MINI-BAG PLUS 50 ML IV SCH ×3 (01:44→14:52)
[2021-01-21] MEDS: ANEXSIA, NORCO 7.5MG/325MG TABLET(HYDROCODONE/APAP) PO PRN ×4 (01:58→17:28)
[2021-01-21 05:13] LABS: BASO % 0.2 % (0.0-1.0); EOS # 0.2 10^3/uL (0.0-0.5); EOS % 2.2 % (0.0-3.0); HEMATOCRIT 29.1 % (42.0-52.0); HEMOGLOBIN 8.8 g/dl (13.5-17.5); LYMPH # 1.4 10^3/uL (1.5-5.0); LYMPH % 13.7 % (24.0-44.0); MEAN CORPUSCULAR HEMOGLOBIN 27.4 pg (27.0-33.0); MEAN CORPUSCULAR HGB CONC 30.2 g/dl (32.0-36.5); MEAN CORPUSCULAR VOLUME 90.7 fl (80.0-96.0); MONO # 0.6 10^3/uL (0.0-0.8); MONO % 5.7 % (2.0-8.0); NEUTROPHILS # 7.8 10^3/uL (1.5-8.5); NEUTROPHILS % 77.3 % (36.0-66.0); PLATELET COUNT, AUTOMATED 311 10^3/uL (150-450); RED BLOOD COUNT 3.21 10^6/uL (4.30-6.10); WHITE BLOOD COUNT 10.1 10^3/uL (4.0-10.0)
[2021-01-21 05:43] LABS: ALBUMIN 1.5 GM/DL (3.2-5.2); ALT/SGPT 13 U/L (12-78); BILIRUBIN,TOTAL 0.3 MG/DL (0.2-1.0); BLOOD UREA NITROGEN 21 MG/DL (7-18); CALCIUM LEVEL 8.2 MG/DL (8.8-10.2); CARBON DIOXIDE LEVEL 27 MEQ/L (21-32); CHLORIDE LEVEL 104 MEQ/L (98-107); CREATININE FOR GFR 0.84 MG/DL (0.70-1.30); GLOMERULAR FILTRATION RATE > 60.0 (>42); GLUCOSE, FASTING 245 MG/DL (70-100); MAGNESIUM LEVEL 1.9 MG/DL (1.8-2.4); POTASSIUM SERUM 4.2 MEQ/L (3.5-5.1); SODIUM LEVEL 139 MEQ/L (136-145); TOTAL PROTEIN 5.7 GM/DL (6.4-8.2)
[2021-01-21] MEDS: APIXABAN 5 MG TAB (ELIQUIS) PO SCH ×2 (05:47→17:39)
[2021-01-21] MEDS: ASPIRIN 81MG ENTERIC TABLET PO SCH (08:30)
[2021-01-21] MEDS: HumaLOG INSULIN (NovoLOG) PER UNIT SC SCH ×4 (08:32→20:39)
[2021-01-21] MEDS ORDERED: DIGOXIN 0.25 MG TAB PO SCH (09:00)
--- NOTE | 2021-01-21 09:23 | CR ---
CONSULTATION DATE: 01/20/2021 REFERRING PHYSICIAN: Elijah Ibrahim MD REASON FOR CONSULTATION: Atrial fibrillation HISTORY OF PRESENT ILLNESS: Mr. Miller is previously unknown to me. He is a rather unfortunate, but simultaneously, very pleasant man who was admitted to our facility on 01/12/2021 with hypotension and was found to have very likely sepsis. He was treated with antibiotics and his condition, in retrospect, improved but he was noted yesterday to develop atrial fibrillation with rapid ventricular response. Because his blood pressure remained low, he was not receiving his beta blockers and digoxin was started. He received a total of three doses of 0.25 mg and that led to conversion to sinus rhythm approximately 10 o'clock this morning and he has been in sinus rhythm since. The patient denies any history of cardiovascular disease. He has had diabetes for many years but was quite active until a few months ago. His dominant medical problem, though, is widely metastatic cancer of unknown primary. He presented with pathological fracture of left humerus in December of this year and was awaiting surgical intervention in [facility] but unfortunately in the interim presented to our facility with the above-mentioned problems. The imaging revealed widely metastatic disease into axial skeleton with impending cord compression. PAST MEDICAL HISTORY: 1. Hypertension. 2. Type 2 diabetes. 3. Remote history of deep vein thrombosis (DVT) in right lower extremity. SURGICAL HISTORY: 1. Appendectomy complicated by peritonitis. 2. History of incisional hernia repair and emergency surgery for incarcerated ventral hernia earlier this year which led to complications. The original surgery was in 2010 but unfortunately complications required repeated surgeries and he has been left with a non-healing wound. 3. Cataract surgery. OUTPATIENT MEDICATIONS: 1. Losartan 50 mg a day 2. Glimepiride 2 mg a day 3. Metformin 1 gram twice a day 4. Aspirin 325 mg a day 5. Furosemide 20 mg a day 6. Tylenol #3 as needed ALLERGIES: No allergies. FAMILY HISTORY: Mother of pancreatic cancer. She was also diabetic and had high blood pressure. Father had coronary artery disease (CAD), type 2 diabetes and hypertension. SOCIAL HISTORY: The patient is . There is a remote history of smoking more than 30 years ago. No significant alcohol use. REVIEW OF SYSTEMS: There had been fever and chills upon admission. He reports a significant weight loss, at least 50 pounds over the last six months or so. No chest pain, no palpitations, no syncope. He did have back pain with movement as of the last several weeks. He has a chronic abdominal infection and with occasional drainage as explained under surgical history. No peripheral edema. No syncopal events. PHYSICAL EXAMINATION: Mr. Miller is a very pleasant man. He appears to be younger than his calendar age and appears to be chronically, but not necessarily, acutely ill. The last set of vital signs revealed blood pressure 96/60; heart rate at around 100, sinus tachycardia; He is afebrile. Saturation 97% on room air. His jugular venous pressure (JVP) does not look elevated. I do not appreciate a carotid bruit. Lungs are somewhat difficult to examine because of pain in his back precluding easy positioning but I do not appreciate any gross crackles, rhonchi or wheezes. Heart exam reveals regular tachycardia without gallop, rub or murmur. Abdomen is soft. Extremities are free of edema. Neurologically, he is clearly alert and oriented, and appropriate. His left upper extremity is in a bandage, and I did not do any formal additional neurologic testing. LABORATORY DATA: CBC: WBC count 13,000, hemoglobin 9, hematocrit 31, platelet count 372,000. Basic metabolic panel is normal but for glucose 326. Liver function tests are normal. Total protein 5.8, albumin 1.5. He had BNP drawn yesterday that was 1200. Immunologically, he has elevated kappa and lambda chains but no typical monoclonal protein or typical monoclonal protein or typical spike in SPEP. IMAGING DATA: Imaging of the skeleton reveals diffuse metastatic lesions as above with impending cauda compression in L3-L4 and also compression fracture of T5. CT angiography of the chest revealed mild ectasia of ascending aorta but no infiltrates or clear-cut congestive heart failure even though there were tiny pleural effusions. No pericardial effusion. He was also found to have lower extremity deep vein thrombosis (DVT) base on Doppler imaging. Several ECGs revealed initially sinus rhythm without significant pathology and the EKG from yesterday revealed presence of atrial fibrillation with rapid ventricular response and without clear-cut ST-T abnormality. ASSESSMENT AND PLAN: Mr. Miller is a very pleasant, 70-year-old man who has no prior history of cardiac problems and who presents principally with widely metastatic cancer of unknown primary with impending spinal compression. At this point, I think it is his principal problem that all medical attention should be focused on. I was asked to see him because he had atrial fibrillation with associated hypotension. Fortunately, after receiving three doses of digoxin he converted into sinus rhythm. At this point, I would continue the current management. I would give him another 0.125 mg tomorrow and then probably keep him on digoxin chronically. As fas as the anticoagulation is concerned, I am worried about his spinal findings. I would get an opinion from oncology what is the risk of bleeding after the radiation is started. I wonder whether inferior vena cava (IVC) filter placement would be a better option considering his deep vein thrombosis (DVT). My understanding is that the patient has been made DO NOT INTUBATE (DNI)/DO NOT RESUSCITATE (DNR) and there are talks about oriented towards palliative care. I do not believe that this cardiac issue will change his prognosis or management significantly. LIAN
--- NOTE | 2021-01-21 12:36 | IPNPDOC ---
Date Seen The patient was seen on 01/21/21. Progress Note SUBJECTIVE: Lazaro was seen and examined this morning while lying upright in bed. He remains in the ICU but he is PCU status. He reports being in a better place mentally in terms of understanding and coping with his diagnosis, and is happy that his has been allowed to visit. He reports his appetite remains somewhat diminished and he is concerned about the state of his abdominal wounds. Patient is also concerned about some swelling over his left arm and hand. Overall, patient's pain is similar to yesterday. He denies any current or overnight fever, chills, night sweats, chest pain, palpitations, significant dyspnea, cough. OBJECTIVE PHYSICAL EXAMINATION: VITAL SIGNS: Please see below. GENERAL: male lying upright in bed. Sick appearing and weak. NAD. HEENT: Normocephalic, atraumatic. Wearing eyeglasses. Noninjected, anicteric sclera. Mild conjunctival pallor. Facial pallor. Oral cavity: MMM. No pharyngeal erythema or exudate appreciated. Dental caries present and missing some teeth. Neck: Trachea midline. No significant LA appreciated. CARDIOVASCULAR: At time of my auscultation, patient's rate was controlled and he had regular rhythm. Later in visit, telemetry showed rate controlled irregularly irregular rhythm. Faint to heart sounds with normal S1, S2. No significant murmurs appreciated RESPIRATORY: Decreased tidal volume with relatively poor respiratory effort. Symmetric chest expansion. There were some mild to moderate crackles appreciat ed in the right lung base. No significant rhonchi or wheezing appreciated. Patient was auscultated anteriorly and laterally due to weakness. No accessory muscle use. Wearing 2 L nasal cannula supplemental oxygen. ABDOMINAL: Soft, nondistended with no significant tenderness. There continues to be 2 supraumbilical wounds nearby prior abdominal incisions present with Hydrofera Blue dressing. There appears to be some slight pus production and mild drainage from both wounds. There is no surrounding erythema or induration around the wounds. Normoactive bowel sounds throughout. No guarding or rigidity appreciated. There is no flank tenderness. Genitourinary: Zamarripa catheter remains in place. EXTREMITIES: Splint and wrap remain in place over left upper extremity with no associated erythema. There is some swelling of the left hand similar to yesterday's exam. Equal radial pulses bilaterally. Bilateral onychomycosis. NEUROLOGICAL: No gross focal neurologic deficits appreciated. Nondysarthric speech. PSYCHOLOGICAL: Improved mood today and appropriate appearing affect. Cooperative. LABORATORY DATA, IMAGING STUDIES, MICROBIOLOGY: Please see below. Echocardiogram: Was completed on 01/19/2021 with impression pending. MRI Lumbar spine wo contrast (01/14/21): IMPRESSION: Metastatic lesions involving the L3 and L4 vertebrae with the L4 lesion posterior element involvement extending slightly into the posterior spinal canal without conus compression. No acute pathologic fracture. Severe spinal canal stenosis and foraminal stenoses of degenerative type L2-L3 and L3-L4 particularly and severe bilateral degenerative foraminal stenosis at L4-L5. MRI thoracic spine wo contrast (01/14/21): IMPRESSION: Thoracic spinal cord compression at the T4 level secondary to an infiltrative vertebral lesion involving the vertebral body and posterior elements, with left paraspinous extension. Pathologic vertebral lesions at the T4 and T9 levels as well without spinal cord compression at those levels MRI w contrast L humerus (01/14/21): IMPRESSION: Non expansile mid diaphyseal humeral lesion measuring 13 cm in length, with pathologic fracture through the midportion. No identifiable soft tissue mass or soft tissue infiltrative process DVT prophylaxis ordered: On apixaban 5 mg twice daily ASSESSMENT AND PLAN: This is a 70-year-old male with notable h/o right leg DVT (1988), hypertension, type 2 diabetes, and fracture of left humerus (s/p splinting) who initially presented on 01/12/2021 with weakness after a fall and was admitted to the ICU for hypotension, acute kidney injury, and sepsis most likely from abdominal wounds. Responded to IV fluid resuscitation and wound culture grew strep agalactiae, staph aureus, and Enterococcus faecalis. Subsequent image work-up revealed numerous metastatic lesions (left humerus, ribs, sternum, thoracic spine, lumbar spine) with vertebral biopsy showing poorly differentiated malignancy. Developed A. fib with RVR on 01/19 and started on Eliquis 5 mg twice daily. Patient was switched to DNR/DNI status on 01/20/2021. #Widely metastatic malignancy with unknown primary -Metastatic lesion seen in thoracic spine, lumbar spine, left humerus, ribs, and sternum on imaging (please see imaging impressions above); pathologic fracture of left humerus. -At this point, primary source of malignancy is unknown but thought to most likely be either prostate or multiple myeloma. -Medical oncology has been consulted (Dr. Deshpande). CEA and alpha-fetoprotein were ordered and unremarkable. We subsequently ordered PSA and beta hCG today upon medical oncology recommendation; of note, prior PSA was 5.3. -SPEP was ordered with no distinct M spike with elevations in kappa and lambda; at this time multiple myeloma cannot be ruled out. -Prior SHRUTHI was done showing preserved voluntary anal tone and perineum sensation. Patient continues with catheter. -L4 biopsy was poorly differentiated malignancy on pathology correlating with a poor prognosis. -Radiation oncology (Dr. Lama) has been consulted for possible palliative radiation. -Current plan is for patient to have treatment planning this afternoon with first radiotherapy treatment tomorrow (01/22). Hospitalist team appreciates co ntinued recommendations and insights from radiation oncology. -Upon discussion with patient's , patient, and primary team, collaborative decision was made for patient yesterday to switch to DNR/DNI status. - Oncology and Radiation oncology on consultation #A. fib with RVR, rate controlled -Patient developed A. fib with RVR 01/19 and was subsequently started on Eliquis 5 mg twice a day. -Heart rates have been controlled consistently since yesterday evening. Patient subsequently converted to sinus rhythm after 3 doses of digoxin. -Patient remained low normotensive during the overnight and this morning. Does have a history of hypertension and those home hypertensive meds have been held. -Patient is currently on 0.25 mg oral daily, Lopressor 25 mg every 8 hours orally. -Per recommendations from Dr. Frias, patient to be given 0.125 mg of digoxin tomorrow and then likely to continue on digoxin chronically from thereon. -An echocardiogram was done on 01/19 with impression pending. -TSH was ordered and was within normal limits. -Troponin was less than 0.02 on 2 different occasions. CTA was negative for PE. -Cardiology service (Dr. Frias) has been consulted; appreciate their continued involvement and recommendations. #Chronic abdominal wounds -Patient initially had operation in [place] in 2011 and has chronic wounds along incision lines-wound cultures grew strep agalactiae, Enterococcus faecalis, and staph aureus -Patient had borderline WBC today of 10.1 with no absolute neutrophilia. -Patient is on day #8 of Zosyn and has remained afebrile. -Hydrofera Blue dressing changes to the wounds. -Per report from nursing, Dr. Shaw, general surgery returned this morning for a bedside incision and drainage/debridement. #Left humeral pathologic fracture -Patient had been following with orthopedic tumor oncologist Dr. Solitario in [place] and had a plan 01/16 surgery which was deferred due to this admission. -Upon decision of goals of care and discharge from hospital, patient can follow- up with the tumor oncology orthopedic surgeon in [place]. -Patient is to continue with left upper extremity splint for pain control. -Dr. Damon, orthopedic surgery on consultation; no concerns for acute fractures, compartment syndrome, or issues with perfusion; plan for outpatient follow up with Orthopedist in [place] #Sacral decubitus ulcers-continue with Vashe x15 minutes and Hydrofera Blue application with foam dressing. Offloading frequently. -Consideration for wound care consultation should wounds worsen. #Ryv-rtxogun-awfplefei diabetes mellitus type 2 Continue with sliding scale insulin before meals and at night -Continue with hypoglycemic protocol and holding home Metformin and glimepiride. #History of hypertension -Patient had normotensive softer pressures overnight. He is now rate controlled and converted to sinus rhythm after digoxin. -Home losartan was initially held in the setting of SHELBY and then remained held in the setting of hypotension. #DVT prophylaxis: - Patient is on Eliquis for new onset A. fib CODE STATUS: - DNR/DNI Disposition: - Pending continued hemodynamic stability with planning palliative radiation this afternoon with initial treatment slated for tomorrow - Ultimately continued conversations for goals of care. Patient's Marilin is allowed to come and visit patient due to his status. VS, I&O, 24H, Fishbone Vital Signs/I&O Vital Signs Date Time Temp Pulse Resp B/P (MAP) Pulse Ox O2 Delivery O2 Flow Rate FiO2 01/21/21 10:24 64 104/64 01/21/21 09:00 16 01/21/21 08:30 Nasal Cannula 2.0 01/21/21 08:00 97.1 98 I&O- Last 24 Hours up to 6 AM 01/21/21 06:00 Intake Total 1410 ml Output Total 875 ml Balance 535 ml Laboratory Data 24H LABS Laboratory Tests 2 01/20/21 11:34: Bedside Glucose (Misc Panel) 287H 01/20/21 17:41: Bedside Glucose (Misc Panel) 275H 01/20/21 21:03: Bedside Glucose (Misc Panel) 269H 01/21/21 05:01: Immature Granulocyte % (Auto) 0.9, Neutrophils (%) (Auto) 77.3H, Lymphocytes (%) (Auto) 13.7L, Monocytes (%) (Auto) 5.7, Eosinophils (%) (Auto) 2.2, Basophils (%) (Auto) 0.2, Neutrophils # (Auto) 7.8, Lymphocytes # (Auto) 1.4L, Monocytes # (Auto) 0.6, Eosinophils # (Auto) 0.2, Basophils # (Auto) 0.0, Nucleated Red Blood Cells % (auto) 0.0, Anion Gap 8, Glomerular Filtration Rate > 60.0, Calcium Level 8.2L, Magnesium Level 1.9, Total Bilirubin 0.3, Aspartate Amino Transf (AST/SGOT) 15, Alanine Aminotransferase (ALT/SGPT) 13, Alkaline Phosphatase 77, Total Protein 5.7L, Albumin 1.5L, Albumin/Globulin Ratio 0.4 01/21/21 08:02: Bedside Glucose (Misc Panel) 237H CBC/BMP Laboratory Tests 01/21/21 05:01 Microbiology Microbiology 01/20/21 Blood Culture - Preliminary, Resulted No growth after 24 hours . All specim... 01/20/21 Blood Culture - Preliminary, Resulted No growth after 24 hours . All specim... 01/14/21 Blood Culture - Final, Complete NO GROWTH AFTER 5 DAYS 01/14/21 Blood Culture - Final, Complete NO GROWTH AFTER 5 DAYS 01/13/21 Gram Stain - Final, Complete 01/13/21 Wound Culture - Final, Complete Strep Agalactiae Group B Enterococcus Faecalis Staphylococcus Aureus 01/12/21 Urine Culture - Final, Complete 01/12/21 Respiratory Virus Panel (PCR) (MEEN[facility]) - Final, Complete 01/12/21 Blood Culture - Final, Complete NO GROWTH AFTER 5 DAYS 01/12/21 Blood Culture - Final, Complete Staphylococcus Haemolyticus GME ATTESTATION GME ATTESTATION My faculty preceptor for this patient encounter was physically present during the encounter and was fully available. All aspects of the patient interview, examination, medical decision making process, and medical care plan development were reviewed and approved by the faculty preceptor. The faculty preceptor is aware and concurs with the plan as stated in the body of this note and will attest to such by his/her cosignature. ATTENDING NOTE I, Justin De Leon, have independently examined this patient and performed my own physical exam, as well as reviewed the documentation and edited where necessary. I have discussed in detail with the resident / student the findings and plan of treatment as documented by the resident / student and edited their note. I agree with their findings and treatment plan and have edited their documentation. I will continue to follow the patient during this hospital stay. JOSE ANGEL PERDOMO D.O. Jan 21, 2021 12:35 JUSTIN DE LEON MD Jan 21, 2021 13:33
--- NOTE | 2021-01-21 13:34 | ECHO ---
ECHOCARDIOGRAM DATE OF PROCEDURE: 01/20/2021 Age: 70 Gender: Male Height: 76 inches Weight: 220 pounds Body Surface Area 2.31 m2 PATIENT LOCATION: Inpatient, ICU, Room 3210 REFERRING PHYSICIAN: JAELYN PICHARDO MD INDICATION: Abnormal EKG - atrial fibrillation. MEASUREMENTS: 2D Measurements: RV 4.2 cm LV 4.7 cm Septum 1.2 cm Posterior wall 1.2 cm Aortic root 3.6 cm LA - 3.9 cm LVEF 75% Doppler Measurements: AV very limited information was reliable PV - 0.8 m/sec Pulmonary artery acceleration time 77 msec PASP 47 mmHg COMMENTS: Underlying atrial fibrillation converting to sinus rhythm then reverting back to atrial fibrillation during the time of the study. A technically challenging study in light of the patient's body habitus and recent left arm fracture. Some useful information was still obtained. In light of the above technical difficulties only meaningful 2 dimensional echocardiography and some pulse and color flow information was viable from the subcostal projections. Borderline left ventricular hypertrophy with hyperkinetic wall motion. Borderline left atrial enlargement. Right ventricular size upper limits of normal with some thickening of the right ventricular free wall but normal wall motion and Doppler evidence of moderate pulmonary hypertension. Right atrium appeared to be upper limits of normal to slightly dilated but his IVC was of normal size with normal collapse against an elevated central venous pressure. Normal aortic root diameter. Mild aortic valvular sclerosis without apparent hemodynamically significant functional abnormality. Normal appearing mitral valvular apparatus without significant functional abnormality. Normal appearing tricuspid valve with a very mild insufficiency. No apparent intracardiac mass or pericardial effusion. MTDD
[2021-01-22] VITALS: BP 115/57
[2021-01-22] MEDS ORDERED: METOPROLOL TART 25 MG TABLET As Ordered ONE (01:54)
[2021-01-22] MEDS: METOPROLOL TART 25 MG TABLET PO SCH ×3 (01:56→17:32)
[2021-01-22 04:00] VITALS: BP 112/60
[2021-01-22] MEDS: ANEXSIA, NORCO 7.5MG/325MG TABLET(HYDROCODONE/APAP) PO PRN ×5 (04:04→21:47)
[2021-01-22 05:17] LABS: BASO % 0.3 % (0.0-1.0); EOS # 0.2 10^3/uL (0.0-0.5); EOS % 1.6 % (0.0-3.0); HEMATOCRIT 29.6 % (42.0-52.0); HEMOGLOBIN 8.8 g/dl (13.5-17.5); LYMPH # 1.3 10^3/uL (1.5-5.0); LYMPH % 12.5 % (24.0-44.0); MEAN CORPUSCULAR HEMOGLOBIN 27.2 pg (27.0-33.0); MEAN CORPUSCULAR HGB CONC 29.7 g/dl (32.0-36.5); MEAN CORPUSCULAR VOLUME 91.6 fl (80.0-96.0); MONO # 0.7 10^3/uL (0.0-0.8); MONO % 6.3 % (2.0-8.0); NEUTROPHILS # 8.1 10^3/uL (1.5-8.5); NEUTROPHILS % 78.2 % (36.0-66.0); PLATELET COUNT, AUTOMATED 342 10^3/uL (150-450); RED BLOOD COUNT 3.23 10^6/uL (4.30-6.10); WHITE BLOOD COUNT 10.4 10^3/uL (4.0-10.0)
[2021-01-22 05:33] LABS: ALBUMIN 1.5 GM/DL (3.2-5.2); ALT/SGPT 13 U/L (12-78); BILIRUBIN,TOTAL 0.3 MG/DL (0.2-1.0); BLOOD UREA NITROGEN 18 MG/DL (7-18); CALCIUM LEVEL 8.6 MG/DL (8.8-10.2); CARBON DIOXIDE LEVEL 27 MEQ/L (21-32); CHLORIDE LEVEL 107 MEQ/L (98-107); CREATININE FOR GFR 0.78 MG/DL (0.70-1.30); GLOMERULAR FILTRATION RATE > 60.0 (>42); GLUCOSE, FASTING 253 MG/DL (70-100); MAGNESIUM LEVEL 1.9 MG/DL (1.8-2.4); POTASSIUM SERUM 4.6 MEQ/L (3.5-5.1); SODIUM LEVEL 140 MEQ/L (136-145)
[2021-01-22] MEDS: APIXABAN 5 MG TAB (ELIQUIS) PO SCH ×2 (05:49→17:32)
[2021-01-22 08:00] VITALS: BP 102/63
[2021-01-22] MEDS: DIGOXIN 0.125 MG TAB PO SCH (08:31)
[2021-01-22] MEDS: ASPIRIN 81MG ENTERIC TABLET PO SCH (08:31)
[2021-01-22] MEDS: PIPERACILLIN/TAZOBACTAM SOD 4.5 GM in D5W MINI-BAG PLUS 50 ML IV SCH ×3 (08:32→21:48)
[2021-01-22] MEDS: HumaLOG INSULIN (NovoLOG) PER UNIT SC SCH ×4 (08:32→21:48)
--- NOTE | 2021-01-22 09:58 | IPNPDOC ---
Date Seen The patient was seen on 01/22/21. Progress Note SUBJECTIVE: Lazaro was seen and examined this morning while lying upright in bed. He remains PCU status but physically in the ICU. He went down for a radiation planning session yesterday afternoon and has his first palliative radiation treatment to the thoracic spine (T5) and lumbar spine (L3-4) this afternoon. He reports an improvement in his appetite over the past 24 hours and says again today that he is in a much better place mentally. He had a bedside incision and drainage of his abdominal wounds yesterday with Dr. Shaw (general surgery). Overall, he reports his pain is relatively well controlled. He denies any current or overnight fever, chills, night sweats, chest pain, palpitations, or dyspnea. OBJECTIVE PHYSICAL EXAMINATION: VITAL SIGNS: Please see below. GENERAL: Pleasant male lying upright in bed. NAD. HEENT: Normocephalic, atraumatic. Noninjected, anicteric sclera. Wearing eyeglasses. Oral cavity: No pharyngeal erythema or exudate appreciated. Neck: No lymphadenopathy appreciated. Trachea midline. CARDIOVASCULAR: Regular rate, regular rhythm. Normal S1, S2. No significant murmurs appreciated. RESPIRATORY: Patient now breathing room air with somewhat decreased tidal volume but good respiratory effort. Some mild bibasilar rhonchi but no discernible wheezes or crackles appreciated. Symmetric chest expansion. Auscultation occurred anteriorly and laterally. ABDOMINAL: Soft, nondistended and nontender. There are moist dressings over the 2 abdominal incision wounds. Wound dressings were removed and wounds visualized, no active bleeding, drainage, or emanating odor appreciated. No surrounding erythema or induration around the wounds. Normoactive bowel sounds throughout. No guarding or rigidity appreciated. There is no flank tenderness. Genitourinary: Zamarripa catheter remains in place. Urine is light yellow in color today (had been darker yellow on previous exams). EXTREMITIES: Splint with bk wrap remains in place over left upper extremity. 2+ radial pulses bilaterally. There is some slight swelling of the left hand. Patient moving right upper extremity and bilateral lower extremities freely. There is bilateral trace pitting edema of lower extremities. Bilateral onychomycosis. There is some mild bilateral calf tenderness. NEUROLOGICAL: No gross focal neurologic deficits appreciated. Nondysarthric speech. PSYCHOLOGICAL: Pleasant and cooperative mood. Appropriate appearing affect LABORATORY DATA, IMAGING STUDIES, MICROBIOLOGY: Please see below. Echocardiogram: Was completed on 01/19/2021 and ordered in the setting of the new onset A. fib with RVR: ImpressionEF 75%, underlying atrial fibrillation converting to sinus rhythm then reverting back to atrial fibrillation during the study. Borderline LVH, left atrial enlargement, moderate pulmonary hypertension, mild aortic valve sclerosis and very mild tricuspid valve insufficiency, with no pericardial effusion or intracardiac mass. MRI Lumbar spine wo contrast (01/14/21): IMPRESSION: Metastatic lesions involving the L3 and L4 vertebrae with the L4 lesion posterior element involvement extending slightly into the posterior spinal canal without conus compression. No acute pathologic fracture. Severe spinal canal stenosis and foraminal stenoses of degenerative type L2-L3 and L3-L4 particularly and severe bilateral degenerative foraminal stenosis at L4-L5. MRI thoracic spine wo contrast (01/14/21): IMPRESSION: Thoracic spinal cord compression at the T4 level secondary to an infiltrative vertebral lesion involving the vertebral body and posterior elements, with left paraspinous extension. Pathologic vertebral lesions at the T4 and T9 levels as well without spinal cord compression at those levels MRI w contrast L humerus (01/14/21): IMPRESSION: Non expansile mid diaphyseal humeral lesion measuring 13 cm in length, with pathologic fracture through the midportion. No identifiable soft tissue mass or soft tissue infiltrative process ASSESSMENT AND PLAN: This is a 70-year-old male with notable h/o right leg DVT (1988), hypertension, type 2 diabetes, and fracture of left humerus (s/p splinting) who initially presented on 01/12/2021 with weakness after a fall and was admitted to the ICU for hypotension, acute kidney injury, and sepsis most likely from abdominal wounds. Responded to IV fluid resuscitation and wound culture grew strep agalactiae, staph aureus, and Enterococcus faecalis. Subsequent image work-up revealed numerous metastatic lesions (left humerus, ribs, sternum, thoracic spine, lumbar spine) with vertebral biopsy showing poorly differentiated malignancy. Developed A. fib with RVR on 01/19 and started on Eliquis 5 mg twice daily. Patient was switched to DNR/DNI status on 01/20/2021. #Widely metastatic malignancy with unknown primary -Metastatic lesion seen in thoracic spine, lumbar spine, left humerus, ribs, and sternum on imaging (please see imaging impressions above); pathologic fracture of left humerus. -At this point, primary source of malignancy is unknown but thought to most likely be multiple myeloma. -Medical oncology has been consulted (Dr. Deshpande). CEA and alpha-fetoprotein were ordered and unremarkable. PSA was 5.2 which was similar to recent outpatient PSA of 5.3 making prostate as a source less likely. Mild elevation of beta hCG. -SPEP showed no distinct M spike with elevations in kappa and lambda; at this time multiple myeloma cannot be ruled out. -L4 biopsy was poorly differentiated malignancy on pathology correlating with a poor prognosis. -Radiation oncology (Dr. Lama) has been consulted for palliative radiation. -Patient underwent radiation planning session on 01/21 and has first palliative treatment session scheduled for the afternoon of 01/22 (specifically treating T5, L3, and L4). -At this time, any radiation treatment to left humerus will be deferred until patient can be evaluated again by his tumor orthopedic physician in [place]. -Patient was switched to DNR/DNI 01/20 #A. fib with RVR, resolved -Patient developed A. fib with RVR 01/19 and was subsequently started on Eliquis 5 mg twice a day. -Patient subsequently converted to sinus rhythm after 3 doses of digoxin. Per recommendation of cardiology, patient was switched to 0.125 digoxin daily on 01/22 and will likely require chronic digoxin administration. Continue with Lopressor 25 mg every 8 hours orally -Heart rate has remained well controlled over the past day and a half. Patient's pressures are softer but still normotensive. -An echocardiogram done on 01/19 (EF 75%, borderline LVH, left atrial enlargement, moderate pulmonary hypertension, mild aortic valve sclerosis and very mild tricuspid valve insufficiency, with no pericardial effusion or intracardiac mass). -TSH wnl -Negative trops x2. CTA was negative for PE. -Cardiology service (Dr. Frias) has been consulted; appreciate their continued involvement and recommendations. -Per medical oncology, there is not a significant bleeding risk posed to administering radiation with concurrent Eliquis. 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 -Patient initially had operation in [place] in 2011 and has chronic wounds along incision lines -abdominal wound cultures grew strep agalactiae, Enterococcus faecalis, and staph aureus -Due to still elevated white count (10.4 on 01/22), Zosyn was renewed today (this is day #9 total of administration). -Dr. Shaw of general surgery did a bedside debridement yesterday. Wet dressings in place at the moment. We continue to appreciate further recommendations and insights from the general surgery service. -continue with Vashe x15 minutes and Hydrofera Blue application with foam dressing. Offloading frequently. -Consideration for wound care consultation should wounds worsen. #Left humeral pathologic fracture -Patient had been following with orthopedic tumor oncologist Dr. Solitario in [place] and had a plan 01/16 surgery which was deferred due to this admission. -Upon decision of goals of care and discharge from hospital, patient can follow- up with the tumor oncology orthopedic surgeon in [place]. -Patient is to continue with left upper extremity splint for pain control. -Dr. Damon, orthopedic surgery on consultation; no concerns for acute fractures, compartment syndrome, or issues with perfusion; plan for outpatient follow up with Orthopedist in [place] #[id number] diabetes mellitus type 2 Continue with sliding scale insulin before meals and at night -Continue with hypoglycemic protocol and holding home Metformin and glimepiride. #History of hypertension -Pressures have been normotensive over the past day or so but still are softer. -Home losartan was initially held in the setting of SHELBY and then remained held in the setting of hypotension. #Nonocclusive left popliteal vein thrombus -Patient was started on 01/19 with Eliquis 5 mg twice a day #DVT prophylaxis: - Patient is on Eliquis for new onset A. fib and also has a nonocclusive thrombus CODE STATUS: - DNR/DNI Disposition: -Pending palliative radiation treatments and ultimate decision on goals of care. Patient's Marilin approved on 01/22 to come and visit patient due to his status. VS, I&O, 24H, Fishbone Vital Signs/I&O Vital Signs Date Time Temp Pulse Resp B/P (MAP) Pulse Ox O2 Delivery O2 Flow Rate FiO2 01/22/21 08:39 71 18 102/63 96 Room Air 01/22/21 08:00 97.1 01/22/21 04:45 2.0 I&O- Last 24 Hours up to 6 AM 01/22/21 06:00 Intake Total 1870 ml Output Total 2660 ml Balance -790 ml Laboratory Data 24H LABS Laboratory Tests 2 01/21/21 11:35: Bedside Glucose (Misc Panel) 253H 01/21/21 16:55: Bedside Glucose (Misc Panel) 206H 01/21/21 20:21: Bedside Glucose (Misc Panel) 277H 01/22/21 04:38: Immature Granulocyte % (Auto) 1.1, Neutrophils (%) (Auto) 78.2H, Lymphocytes (%) (Auto) 12.5L, Monocytes (%) (Auto) 6.3, Eosinophils (%) (Auto) 1.6, Basophils (%) (Auto) 0.3, Neutrophils # (Auto) 8.1, Lymphocytes # (Auto) 1.3L, Monocytes # (Auto) 0.7, Eosinophils # (Auto) 0.2, Basophils # (Auto) 0.0, Nucleated Red Blood Cells % (auto) 0.0, Anion Gap 6L, Glomerular Filtration Rate > 60.0, Calcium Level 8.6L, Magnesium Level 1.9, Total Bilirubin 0.3, Aspartate Amino Transf (AST/SGOT) 15, Alanine Aminotransferase (ALT/SGPT) 13, Alkaline Phosphatase 83, Total Protein 6.0L, Albumin 1.5L, Albumin/Globulin Ratio 0.3, Digoxin Level 1.0 01/22/21 07:56: Bedside Glucose (Misc Panel) 242H CBC/BMP Laboratory Tests 01/22/21 04:38 Microbiology Microbiology 01/20/21 Blood Culture - Preliminary, Resulted No growth after 24 hours . All specim... 01/20/21 Blood Culture - Preliminary, Resulted No Growth after 48 hours. All Specime... 01/14/21 Blood Culture - Final, Complete NO GROWTH AFTER 5 DAYS 01/14/21 Blood Culture - Final, Complete NO GROWTH AFTER 5 DAYS 01/13/21 Gram Stain - Final, Complete 01/13/21 Wound Culture - Final, Complete Strep Agalactiae Group B Enterococcus Faecalis Staphylococcus Aureus 01/12/21 Urine Culture - Final, Complete 01/12/21 Respiratory Virus Panel (PCR) ([facility]) - Final, Complete 01/12/21 Blood Culture - Final, Complete NO GROWTH AFTER 5 DAYS 01/12/21 Blood Culture - Final, Complete Staphylococcus Haemolyticus GME ATTESTATION GME ATTESTATION My faculty preceptor for this patient encounter was physically present during the encounter and was fully available. All aspects of the patient interview, examination, medical decision making process, and medical care plan development were reviewed and approved by the faculty preceptor. The faculty preceptor is aware and concurs with the plan as stated in the body of this note and will attest to such by his/her cosignature. ATTENDING NOTE I, Justin De Leon, have independently examined this patient and performed my own physical exam, as well as reviewed the documentation and edited where necessary. I have discussed in detail with the resident / student the findings and plan of treatment as documented by the resident / student and edited their note. I agree with their findings and treatment plan and have edited their documentation. I wi ll continue to follow the patient during this hospital stay. Assessment and Plan: Widely metastatic malignancy involving L spine and Humerus with unknown primary - Plan for radiation therapy with Dr. Lama; starting today - Oncology on consultation Left humeral pathologic fracture - s/p Splinting - Discussed with Dr. Damon about L arm swelling and re-dressing as required A. fib; s/p RVR - c/w Digoxin / Metoprolol / Eliquis - Cardiology on consultation Nonocclusive left popliteal DVT - c/w Eliquis Chronic abdominal wounds and sacral decubitus ulcers. - s/p Debridement - c/w Zosyn - General surgery on consultation NIDDM2 - c/w ISS HTN - BP well controlled DVT prophylaxis Code Status: - DNR / DNI JOSE ANGEL PERDOMO D.O. Jan 22, 2021 09:58 JUSTIN DE LEON MD Jan 22, 2021 14:52
[2021-01-22 12:00] VITALS: BP 107/60
[2021-01-22 16:00] VITALS: BP 115/61
--- NOTE | 2021-01-22 16:21 | REP ---
INDICATION: L humerus fracture. COMPARISON: Comparison radiographs of the left humerus are dated December 15, 2020. TECHNIQUE: A single AP portable radiograph of the left humerus is provided, taken through overlying splint material. FINDINGS: A single portable AP radiograph of the left humerus demonstrates comminuted pathologic fracture of the mid diaphysis with periosteal reaction. No evidence of displacement is seen. The periosteal reaction is new from the December 15, 2020 study. 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 IMPRESSION: Periosteal reaction seen at the site of the known pathologic mid shaft humeral fracture. No displacement. <Electronically signed by Gunner Thibodeaux > 01/22/21 [id number]
[2021-01-22] MEDS ORDERED: LORazepam 2 MG/ML VIAL IV STA (18:14)
[2021-01-22 20:00] VITALS: BP 111/59
[2021-01-22] MEDS: LEVEMIR (INSULIN DETEMIR) 1 UNITS/0.01ML SC SCH (21:47)
[2021-01-23] VITALS: BP 99/58
[2021-01-23] MEDS: METOPROLOL TART 25 MG TABLET PO SCH ×3 (01:57→18:07)
[2021-01-23] MEDS: PIPERACILLIN/TAZOBACTAM SOD 4.5 GM in D5W MINI-BAG PLUS 50 ML IV SCH ×3 (02:06→15:14)
[2021-01-23] MEDS: ANEXSIA, NORCO 7.5MG/325MG TABLET(HYDROCODONE/APAP) PO PRN ×3 (03:00→18:07)
[2021-01-23 04:00] VITALS: BP 102/61
[2021-01-23 04:27] LABS: BASO % 0.2 % (0.0-1.0); EOS # 0.2 10^3/uL (0.0-0.5); HEMATOCRIT 29.1 % (42.0-52.0); HEMOGLOBIN 8.8 g/dl (13.5-17.5); LYMPH # 1.1 10^3/uL (1.5-5.0); LYMPH % 10.2 % (24.0-44.0); MEAN CORPUSCULAR HEMOGLOBIN 27.7 pg (27.0-33.0); MEAN CORPUSCULAR HGB CONC 30.2 g/dl (32.0-36.5); MEAN CORPUSCULAR VOLUME 91.5 fl (80.0-96.0); MONO # 0.6 10^3/uL (0.0-0.8); MONO % 5.9 % (2.0-8.0); NEUTROPHILS # 8.7 10^3/uL (1.5-8.5); NEUTROPHILS % 80.5 % (36.0-66.0); PLATELET COUNT, AUTOMATED 343 10^3/uL (150-450); RED BLOOD COUNT 3.18 10^6/uL (4.30-6.10); WHITE BLOOD COUNT 10.8 10^3/uL (4.0-10.0)
[2021-01-23 04:59] LABS: ALBUMIN 1.5 GM/DL (3.2-5.2); ALT/SGPT 14 U/L (12-78); BILIRUBIN,TOTAL 0.3 MG/DL (0.2-1.0); BLOOD UREA NITROGEN 19 MG/DL (7-18); CALCIUM LEVEL 8.6 MG/DL (8.8-10.2); CARBON DIOXIDE LEVEL 27 MEQ/L (21-32); CHLORIDE LEVEL 106 MEQ/L (98-107); GLOMERULAR FILTRATION RATE > 60.0 (>42); GLUCOSE, FASTING 216 MG/DL (70-100); POTASSIUM SERUM 4.6 MEQ/L (3.5-5.1); SODIUM LEVEL 139 MEQ/L (136-145); TOTAL PROTEIN 5.8 GM/DL (6.4-8.2)
[2021-01-23] MEDS: APIXABAN 5 MG TAB (ELIQUIS) PO SCH ×2 (05:08→18:07)
[2021-01-23 08:10] VITALS: BP 118/65
[2021-01-23] MEDS: HumaLOG INSULIN (NovoLOG) PER UNIT SC SCH ×4 (09:53→21:09)
[2021-01-23] MEDS: LEVEMIR (INSULIN DETEMIR) 1 UNITS/0.01ML SC SCH ×2 (09:53→21:09)
[2021-01-23] MEDS: ASPIRIN 81MG ENTERIC TABLET PO SCH (09:54)
[2021-01-23] MEDS: DIGOXIN 0.125 MG TAB PO SCH (09:55)
[2021-01-23 12:17] VITALS: BP 110/63
--- NOTE | 2021-01-23 13:53 | IPNPDOC ---
Date Seen The patient was seen on 01/23/21. Progress Note SUBJECTIVE: Lazaro was seen and examined this morning by the hospitalist service while lying upright in bed. He just recently completed breakfast. His appetite has returned to normal now for the last 2 days. He is now physically out of the ICU and remains PCU status. He had his initial palliative radiation yesterday afternoon and reports tolerating it without any significant issues. He is slated for his second treatment this afternoon. While his back pain is still present, he feels as tho ugh it has improved following the treatment. He continues to have some left-sided moderate pleuritic chest pain that has unchanged from the previous days. He denies any chest pain, chest pressure, p alpitations, current or overnight fever, chills, night sweats, significant dyspnea, abdominal pain/nausea/vomiting. OBJECTIVE PHYSICAL EXAMINATION: VITAL SIGNS: Please see below. GENERAL: Pleasant male lying upright in bed. NAD. HEENT: Normocephalic, atraumatic. Noninjected, anicteric sclera. Wearing eyeglasses. Oral cavity: No pharyngeal erythema or exudate appreciated. MMM. CARDIOVASCULAR: Regular rate, regular rhythm. Normal S1, S2. No significant murmurs appreciated. RESPIRATORY: Breathing room air with symmetric chest expansion. Slightly diminished tidal volume with decreased respiratory effort and some visualized labored breathing with deep inspiration exhalation. Coarse breath sounds bilaterally with some moderate rhonchi in the bases. ABDOMINAL: Soft, nondistended and nontender. Large square bandage over abdominal incision wounds, once removed Hydrofera Blue dressings overlying the wounds. On visual inspection today the abdominal wounds appear to have slightly more purulent material but are not oozing, have no active drainage, bleeding, or odiferous scent. There remains no surrounding erythema or induration around the wounds. Normoactive bowel sounds throughout. No guarding or rigidity appreciated. Genitourinary: Zamarripa catheter remains in place draining light yellow-colored urine. EXTREMITIES: Splint with bk wrap remains in place over left upper extremity. 2+ radial pulses bilaterally. 5/5 muscle strength of RUE and 4/5 muscle strength of B/L LE. Remains bilateral trace pitting edema of lower extremities. Bilateral onychomycosis. NEUROLOGICAL: No gross focal neurologic deficits appreciated. Nondysarthric speech. PSYCHOLOGICAL: Pleasant and cooperative mood. Appropriate appearing affect LABORATORY DATA, IMAGING STUDIES, MICROBIOLOGY: Please see below. Echocardiogram: Was completed on 01/19/2021 and ordered in the setting of the new onset A. fib with RVR: ImpressionEF 75%, underlying atrial fibrillation converting to sinus rhythm then reverting back to atrial fibrillation during the study. Borderline LVH, left atrial enlargement, moderate pulmonary hypertension, mild aortic valve sclerosis and very mild tricuspid valve insufficiency, with no pericardial effusion or intracardiac mass. MRI Lumbar spine wo contrast (01/14/21): IMPRESSION: Metastatic lesions involving the L3 and L4 vertebrae with the L4 lesion posterior element involvement extending slightly into the posterior spinal canal without conus compression. No acute pathologic fracture. Severe spinal canal stenosis and foraminal stenoses of degenerative type L2-L3 and L3-L4 particularly and severe bilateral degenerative foraminal stenosis at L4-L5. MRI thoracic spine wo contrast (01/14/21): IMPRESSION: Thoracic spinal cord compression at the T4 level secondary to an infiltrative vertebral lesion involving the vertebral body and posterior elements, with left paraspinous extension. Pathologic vertebral lesions at the T4 and T9 levels as well without spinal cord compression at those levels MRI w contrast L humerus (01/14/21): IMPRESSION: Non expansile mid diaphyseal humeral lesion measuring 13 cm in length, with pathologic fracture through the midportion. No identifiable soft tissue mass or soft tissue infiltrative process ASSESSMENT AND PLAN: This is a 70-year-old male with notable h/o right leg DVT (1988), hypertension, type 2 diabetes, and fracture of left humerus (s/p splinting) who initially presented on 01/12/2021 with weakness after a fall and was admitted to the ICU for hypotension, acute kidney injury, and sepsis most likely from abdominal wounds. Responded to IV fluid resuscitation and wound culture grew strep agalactiae, staph aureus, and Enterococcus faecalis. Subsequent image work-up revealed numerous metastatic lesions (left humerus, ribs, sternum, thoracic spine, lumbar spine) with vertebral biopsy showing poorly differentiated malignancy. Developed A. fib with RVR on 01/19 and started on Eliquis 5 mg twice daily. Patient was switched to DNR/DNI status on 01/20/2021. #Widely metastatic malignancy with unknown primary -Metastatic lesion seen in thoracic spine, lumbar spine, left humerus, ribs, and sternum on imaging (please see imaging impressions above); pathologic fracture o f left humerus. -At this point, primary source of malignancy is unknown but thought to most likely be multiple myeloma. -Medical oncology has been consulted (Dr. Deshpande). CEA and alpha-fetoprotein w ere ordered and unremarkable. PSA was 5.2 which was similar to recent outpatient PSA of 5.3 making prostate as a source less likely. Mild elevation of beta hCG. -SPEP: Atypical shape of gamma region was noted with inability to definitively determine presence of atypical bands with 6-9-month follow-up suggested. No comment on distinct M spike; kappa and lambda elevated at 67.9 and 50.4, respectively. -At this time, multiple myeloma cannot be ruled out in his leading etiology for primary source. -L4 biopsy was poorly differentiated malignancy on pathology correlating with a poor prognosis; Bx slide and block was sent to [facility] for immunohistochemical work up and consultation as to possible primary site -Radiation oncology (Dr. Lama) has been consulted for palliative radiation. -Patient underwent radiation planning session on 01/21 and had first palliative treatment session on 01/22 (specifically treating T5, L3, and L4); second palliative treatment session scheduled for 01/23. -At this time, any radiation treatment to left humerus will be deferred until patient can be evaluated again by his tumor orthopedic physician in [place]. -Patient was switched to DNR/DNI 01/20 #A. fib with RVR, resolved -Patient developed A. fib with RVR 01/19 and was subsequently started on Eliquis 5 mg twice a day. -Patient subsequently converted to sinus rhythm after 3 doses of digoxin. Per recommendation of cardiology, patient was switched to 0.125 digoxin daily on 01/22 and will likely require chronic digoxin administration. Continue with Lopressor 25 mg every 8 hours orally -Heart rate has remained well controlled over the past day and a half. Patient's pressures are softer but still normotensive. -An echocardiogram done on 01/19 (EF 75%, borderline LVH, left atrial enlargement, moderate pulmonary hypertension, mild aortic valve sclerosis and very mild tricuspid valve insufficiency, with no pericardial effusion or intracardiac mass). -TSH wnl -Negative trops x2. CTA was negative for PE. -Cardiology service (Dr. Frias) has been consulted; appreciate their continued involvement and recommendations. -Per medical oncology, there is not a significant bleeding risk posed to administering radiation with concurrent Eliquis. #Infected chronic sinus draining abdominal wounds with sinus tract and sacral decubitus ulcers. -Patient initially had operation in [place] in 2011 and has chronic wounds along incision lines -abdominal wound cultures grew strep agalactiae, Enterococcus faecalis, and staph aureus -Due to still elevated white count (10.8 on 01/22), Zosyn was renewed on 01/22 -today is day #10 of Zosyn administration. -Dr. Shaw of general surgery did a bedside debridement on 01/21. Hydrofera Blue dressings in place. We continue to appreciate further recommendations and insights from the general surgery service. -continue with Vashe x15 minutes and Hydrofera Blue application with foam dressing. Offloading frequently. -Consideration for wound care consultation should wounds worsen. #Left humeral pathologic fracture -Patient had been following with orthopedic tumor oncologist Dr. Solitario in [place] and had a plan 01/16 surgery which was deferred due to this admission. -Upon decision of goals of care and discharge from hospital, patient can follow- up with the tumor oncology orthopedic surgeon in [place]. -Patient is to continue with left upper extremity splint for pain control. -Dr. Damon, orthopedic surgery on consultation; no concerns for acute fractures, compartment syndrome, or issues with perfusion; plan for outpatient follow up with Orthopedist in [place] -Interval humerus x-ray on 01/22 showed no evidence of displacement. There was a periosteal reaction seen at site of fracture; findings discussed with Dr. Damon who plan to see patient again on 01/23. #Ath-njtmhjr-hcqjnldhf diabetes mellitus type 2 -Patient's sugars showed sustained elevation and thus 5 units long-acting insulin added bid on 01/22 Continue with sliding scale insulin before meals and at night -Continue with hypoglycemic protocol -Holding home Metformin and glimepiride. #History of hypertension -Pressures normotensive this morning; have been running softer prior to that. -Home losartan was initially held in the setting of SHE[place]BY and then remained held in the setting of hypotension. #Nonocclusive left popliteal vein thrombus -Patient was started on 01/19 with Eliquis 5 mg twice a day for new onset A. fib with RVR. #Overall conditioning -Once patient returned to PCU status, PT/OT orders were renewed -Incentive spirometry also was ordered on 01/23 in the setting of patient's limited mobility with course, rhonchorous breath sounds #DVT prophylaxis: - Patient is on Eliquis for new onset A. fib and also has a nonocclusive thrombus CODE STATUS: - DNR/DNI Disposition: -Pending palliative radiation treatments and ultimate decision on goals of care. Patient's Marilin approved on 01/20 to come and visit patient due to his status. VS, I&O, 24H, Fishbone Vital Signs/I&O Vital Signs Date Time Temp Pulse Resp B/P (MAP) Pulse Ox O2 Delivery O2 Flow Rate FiO2 01/23/21 12:17 99.7 87 20 110/63 (79) 95 Room Air 01/22/21 04:45 2.0 l I&O- Last 24 Hours up to 6 AM 01/23/21 06:00 Intake Total 3520 ml Output Total 2225 ml Balance 1295 ml Laboratory Data 24H LABS Laboratory Tests 2 01/22/21 17:17: Bedside Glucose (Misc Panel) 275H 01/22/21 20:27: Bedside Glucose (Misc Panel) 301H 01/23/21 03:43: Immature Granulocyte % (Auto) 1.2, Neutrophils (%) (Auto) 80.5H, Lymphocytes (%) (Auto) 10.2L, Monocytes (%) (Auto) 5.9, Eosinophils (%) (Auto) 2.0, Basophils (%) (Auto) 0.2, Neutrophils # (Auto) 8.7H, Lymphocytes # (Auto) 1.1L, Monocytes # (Auto) 0.6, Eosinophils # (Auto) 0.2, Basophils # (Auto) 0.0, Nucleated Red Blood Cells % (auto) 0.0, Anion Gap 6L, Glomerular Filtration Rate > 60.0, Calcium Level 8.6L, Magnesium Level 2.0, Total Bilirubin 0.3, Aspartate Amino Transf (AST/SGOT) 14, Alanine Aminotransferase (ALT/SGPT) 14, Alkaline Phosphatase 78, Total Protein 5.8L, Albumin 1.5L, Albumin/Globulin Ratio 0.3 01/23/21 12:21: Bedside Glucose (Misc Panel) 247H CBC/BMP Laboratory Tests 01/23/21 03:43 Microbiology Microbiology 01/20/21 Blood Culture - Preliminary, Resulted No Growth after 72 hours. All specime... 01/20/21 Blood Culture - Preliminary, Resulted No Growth after 72 hours. All specime... 01/14/21 Blood Culture - Final, Complete NO GROWTH AFTER 5 DAYS 01/14/21 Blood Culture - Final, Complete NO GROWTH AFTER 5 DAYS 01/13/21 Gram Stain - Final, Complete 01/13/21 Wound Culture - Final, Complete Strep Agalactiae Group B Enterococcus Faecalis Staphylococcus Aureus GME ATTESTATION GME ATTESTATION My faculty preceptor for this patient encounter was physically present during the encounter and was fully available. All aspects of the patient interview, examination, medical decision making process, and medical care plan development were reviewed and approved by the faculty preceptor. The faculty preceptor is aware and concurs with the plan as stated in the body of this note and will attest to such by his/her cosignature. ATTENDING NOTE I, Justin De Leon, have independently examined this patient and performed my own physical exam, as well as reviewed the documentation and edited where necessary. I have discussed in detail with the resident / student the findings and plan of treatment as documented by the resident / student and edited their note. I agree with their findings and treatment plan and have edited their documentation. I will continue to follow the patient during this hospital stay. Assessment and Plan: Widely metastatic malignancy involving L spine and Humerus with unknown primary - c/w radiation therapy with Dr. Lama (DAY #2) - Oncology on consultation Left humeral pathologic fracture - s/p Splinting - Re-evaluated with Dr. Damon today; appreciate their input A. fib; s/p RVR - c/w Digoxin / Metoprolol / Eliquis - Cardiology on consultation Nonocclusive left popliteal DVT - c/w Eliquis Chronic abdominal wounds and sacral decubitus ulcers. - s/p Debridement - c/w Zosyn - General surgery on consultation NIDDM2 - c/w ISS HTN - BP well controlled DVT prophylaxis Code Status: - DNR / DNI JOSE ANGEL PERDOMO D.O. Jan 23, 2021 13:53 JUSTIN DE LEON MD Jan 23, 2021 17:31
[2021-01-23 16:00] VITALS: BP 113/67
--- NOTE | 2021-01-23 19:46 | IPN ---
INFECTIOUS DISEASE PROGRESS NOTE DATE: 01/23/2021 SUBJECTIVE: Paddy is in good spirits. He was a little confused and could not remember the code to his iPhone to call his . I dialed the number for him as he was on the phone with Marilin. He denies any nausea, vomiting. He states his appetite is good. He was having dinner. He has significant pain in his left arm and is not able to move it. His abdominal wounds have decreased drainage. He denies any pain there. No nausea, vomiting, fever, chills or night sweats. He is currently day #10 of intravenous (IV) Zosyn. LABORATORY DATA: White count 10.8, hemoglobin 8.8, hematocrit 29.1, platelets 343, 80% neutrophils, 10% lymphocytes. Sodium 139, potassium 4.6, chloride 106, bicarbonate 27, BUN 19, creatinine 0. 8, glucose 216, calcium 8.6. AST 14, ALT 14, alkaline phosphatase 78, total protein 5.8, albumin 1.5. Digoxin level 1. Abdominal culture: Group B Streptococcus, Enterococcus (E) faecalis, Methicillin sensitive Streptococcus aureus (MSSA). Throat cultures on 01/20/2021 two sets are negative; 01/14/2021 two sets are negative. PHYSICAL EXAMINATION: EXTREMITIES: Left arm in a sling. Elbow at 90 degrees. VITAL SIGNS: Temperature 99.7, pulse 87, respirations 20, blood pressure 110/63, oxygen saturation 93% on room air. HEART: Normal S1, S2. No murmur appreciated. LUNGS: Clear. No rales or rhonchi. ABDOMEN: With midline incision with three open ulcerations, the largest one measures about 3 x 2 cm with some purulent discharge and two smaller sinus tracts inferior to that wound. IMPRESSION: 1. 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 Patient currently undergoing palliative radiation. 2. Abdominal wound infection with cultures positive for methicillin sensitive Streptococcus aureus (MSSA), Enterococcus (E) faecalis and group B Streptococcus. Patient has received 10 days of IV Zosyn. He will finish another five days of oral Augmentin. He is getting dressing changes and Hydrofera Blue. He had incision and drainage (I and D) of both wounds. They look much dry cleaner hand. I doubt these wound will heal at this point. They have been open for many years. He states at least since 2011. PLAN: Infectious disease signing off. Discontinue IV Zosyn. Switch to Augmentin 875 mg by mouth twice a day for five days.
[2021-01-23 20:00] VITALS: BP 111/62
[2021-01-23] MEDS: AUGMENTIN 875 MG TAB PO SCH (21:08)
[2021-01-24] VITALS: BP 129/64
[2021-01-24] MEDS: ANEXSIA, NORCO 7.5MG/325MG TABLET(HYDROCODONE/APAP) PO PRN ×5 (01:06→20:57)
[2021-01-24] MEDS: METOPROLOL TART 25 MG TABLET PO SCH ×3 (01:08→17:49)
[2021-01-24 04:00] VITALS: BP 135/74
[2021-01-24 04:06] LABS: BASO % 0.2 % (0.0-1.0); EOS # 0.2 10^3/uL (0.0-0.5); EOS % 1.8 % (0.0-3.0); HEMATOCRIT 28.7 % (42.0-52.0); HEMOGLOBIN 8.8 g/dl (13.5-17.5); LYMPH # 1.2 10^3/uL (1.5-5.0); LYMPH % 9.1 % (24.0-44.0); MEAN CORPUSCULAR HEMOGLOBIN 27.7 pg (27.0-33.0); MEAN CORPUSCULAR HGB CONC 30.7 g/dl (32.0-36.5); MEAN CORPUSCULAR VOLUME 90.3 fl (80.0-96.0); MONO # 0.6 10^3/uL (0.0-0.8); MONO % 4.6 % (2.0-8.0); NEUTROPHILS # 10.7 10^3/uL (1.5-8.5); NEUTROPHILS % 83.4 % (36.0-66.0); PLATELET COUNT, AUTOMATED 368 10^3/uL (150-450); RED BLOOD COUNT 3.18 10^6/uL (4.30-6.10); WHITE BLOOD COUNT 12.8 10^3/uL (4.0-10.0)
[2021-01-24 04:10] LABS: ALBUMIN 1.5 GM/DL (3.2-5.2); ALT/SGPT 13 U/L (12-78); BILIRUBIN,TOTAL 0.2 MG/DL (0.2-1.0); BLOOD UREA NITROGEN 22 MG/DL (7-18); CALCIUM LEVEL 8.5 MG/DL (8.8-10.2); CARBON DIOXIDE LEVEL 26 MEQ/L (21-32); CHLORIDE LEVEL 104 MEQ/L (98-107); CREATININE FOR GFR 0.76 MG/DL (0.70-1.30); GLOMERULAR FILTRATION RATE > 60.0 (>42); GLUCOSE, FASTING 211 MG/DL (70-100); MAGNESIUM LEVEL 1.9 MG/DL (1.8-2.4); POTASSIUM SERUM 4.2 MEQ/L (3.5-5.1); SODIUM LEVEL 138 MEQ/L (136-145)
[2021-01-24] MEDS: APIXABAN 5 MG TAB (ELIQUIS) PO SCH ×2 (06:16→17:49)
[2021-01-24 07:58] VITALS: BP 111/58
[2021-01-24] MEDS: DIGOXIN 0.125 MG TAB PO SCH (08:38)
[2021-01-24] MEDS: AUGMENTIN 875 MG TAB PO SCH ×2 (08:38→20:56)
[2021-01-24] MEDS: ASPIRIN 81MG ENTERIC TABLET PO SCH (08:38)
[2021-01-24] MEDS: LEVEMIR (INSULIN DETEMIR) 1 UNITS/0.01ML SC SCH ×2 (08:39→20:56)
[2021-01-24] MEDS: HumaLOG INSULIN (NovoLOG) PER UNIT SC SCH ×4 (08:39→20:12)
--- NOTE | 2021-01-24 09:16 | IPNPDOC ---
Text Note Date of Service The patient was seen on 01/24/21. NOTE I followed up on his abdominal wounds today. He is currently undergoing pall iative radiation to his pathologic spine fractures. He reports he feels tired almost looks defeated. On exam he has 2 openings in his wound. At the mid epigastric area the wound bed is clean. Read about the skin and subcutaneous tissue level I could see some granulation tissue forming. He has some thickened white fibrotic tissue with a presumed to be fascia underneath it. I keep on wondering whether he has a biologic mesh that resulted in this thick fibrotic tissue. At the wound below the umbilicus there is a deep tract. No active drainage. I do not see any evidence of abscess or infection. Continue with current wound management. I would just follow him up intermittently. I told him that I do not expect the wound to heal up fast and may need intermittent debridement if he is up to with those I think this is the least of his worries for now. VS,Fishbone, I+O VS, Fishbone, I+O Laboratory Tests 01/24/21 03:16 Vital Signs Date Time Temp Pulse Resp B/P (MAP) Pulse Ox O2 Delivery O2 Flow Rate FiO2 01/24/21 08:38 73 01/24/21 08:16 20 Room Air 01/24/21 07:58 98.4 111/58 (75) 93 01/22/21 04:45 2.0 I&O- Last 24 Hours up to 6 AM 01/24/21 06:00 Intake Total 1290 ml Output Total 1850 ml Balance -560 ml ROSEANNE NICHOLS MD Jan 24, 2021 09:16
[2021-01-24 12:00] VITALS: BP 100/60
--- NOTE | 2021-01-24 15:35 | IPNPDOC ---
Date Seen The patient was seen on 01/24/21. Progress Note SUBJECTIVE: Lazaro was seen and examined this morning by the hospitalist team while lying upright in bed. He seems a bit more despondent today after being in higher spirits the past few days. He reports undergoing his second palliative radiation treatment yesterday and is slated for his third today. He denies any significant issues with the radiation. He was in some moderate pain in the policy loan calculator hours but that has begin to diminish with his morning pain medications. His appetite is still improved from where it was last week and he is eating and drinking without any issues. He was seen and evaluated by PT/OT yesterday, but no significant exercises were done as they had a collaborative discussion of goals. Patient denies any current or overnight fever, chills, night sweats, chest pain, palpitations, shortness of breath, abdominal pain, nausea, or vomiting. OBJECTIVE PHYSICAL EXAMINATION: VITAL SIGNS: Please see below. GENERAL: Pleasant ill-appearing male lying upright in bed. Mood is somewhat depressed compared to previous days. NAD. HEENT: Normocephalic, atraumatic. Noninjected, anicteric sclera. Wearing eyeglasses. Oral cavity: No pharyngeal erythema or exudate appreciated. MMM. CARDIOVASCULAR: Regular rate, regular rhythm. Normal S1, S2. No significant murmurs appreciated. RESPIRATORY: Breathing room air with symmetric chest expansion. Decreased respiratory effort similar to prior exams with diminished tidal volume. Moderately coarse breath sounds bilaterally. ABDOMINAL: Soft, nondistended and nontender. Large bandage in place over abdomen, when removed smaller Hydrofera Blue dressings in place on to incisional abdominal wounds. There appears to be a film of purulent material with some underlying adequate granulation tissue. There is no active drainage or discharge from the wounds and the surrounding area is not erythematous, nonind urated, nontender. Normoactive bowel sounds throughout. No guarding or rigidity appreciated. Genitourinary: Zamarripa catheter remains in place draining light yellow-colored urine. EXTREMITIES: Splint with bk wrap remains in place over left upper extremity. 2+ radial pulses bilaterally. 5/5 muscle strength of RUE and 4/5 muscle strength of B/L LE. Bilateral onychomycosis. NEUROLOGICAL: No gross focal neurologic deficits appreciated. Nondysarthric speech. PSYCHOLOGICAL: Depressed mood from previous days exams. Affect appears appropriate. Echocardiogram: Was completed on 01/19/2021 and ordered in the setting of the new onset A. fib with RVR: ImpressionEF 75%, underlying atrial fibrillation converting to sinus rhythm then reverting back to atrial fibrillation during the study. Borderline LVH, left atrial enlargement, moderate pulmonary hypertension, mild aortic valve sclerosis and very mild tricuspid valve insufficiency, with no pericardial effusion or intracardiac mass. MRI Lumbar spine wo contrast (01/14/21): IMPRESSION: Metastatic lesions involving the L3 and L4 vertebrae with the L4 lesion posterior element involvement extending slightly into the posterior spinal canal without conus compression. No acute pathologic fracture. Severe spinal canal stenosis and foraminal stenoses of degenerative type L2-L3 and L3-L4 particularly and severe bilateral degenerative foraminal stenosis at L4-L5. MRI thoracic spine wo contrast (01/14/21): IMPRESSION: Thoracic spinal cord compression at the T4 level secondary to an infiltrative vertebral lesion involving the vertebral body and posterior elements, with left paraspinous extension. Pathologic vertebral lesions at the T4 and T9 levels as well without spinal cord compression at those levels MRI w contrast L humerus (01/14/21): IMPRESSION: Non expansile mid diaphyseal humeral lesion measuring 13 cm in length, with pathologic fracture through the midportion. No identifiable soft tissue mass or soft tissue infiltrative process ASSESSMENT AND PLAN: This is a 70-year-old male with notable h/o right leg DVT (1988), hypertension, type 2 diabetes, and fracture of left humerus (s/p splinting) who initially presented on 01/12/2021 with weakness after a fall and was admitted to the ICU for hypotension, acute kidney injury, and sepsis most likely from abdominal wounds. Responded to IV fluid resuscitation and wound culture grew strep agalactiae, staph aureus, and Enterococcus faecalis. Subsequent image work-up revealed numerous metastatic lesions (left humerus, ribs, sternum, thoracic spine, lumbar spine) with vertebral biopsy showing poorly differentiated malignancy. Developed A. fib with RVR on 01/19 and started on Eliquis 5 mg twice daily. Patient was switched to DNR/DNI status on 01/20/2021. #Widely metastatic malignancy with unknown primary -Metastatic lesion seen in thoracic spine, lumbar spine, left humerus, ribs, and sternum on imaging (please see imaging impressions above); pathologic fracture of left humerus. -At this point, primary source of malignancy is unknown but thought to most likely be multiple myeloma. -Medical oncology has been consulted (Dr. Deshpande). CEA and alpha-fetoprotein were ordered and unremarkable. PSA was 5.2 which was similar to recent outpatient PSA of 5.3 making prostate as a source less likely. Mild elevation of beta hCG. -SPEP: Atypical shape of gamma region was noted with inability to definitively determine presence of atypical bands with 6-9-month follow-up suggested. No comment on distinct M spike; kappa and lambda elevated at 67.9 and 50.4, respectively. -At this time, multiple myeloma cannot be ruled out in his leading etiology for primary source. -L4 biopsy was poorly differentiated malignancy on pathology correlating with a poor prognosis; Bx slide and block was sent to [facility] for immunohistoch emical work up -No definite primary source could be identified on [facility] work-up; urothelial carcinoma listed as possibility, but immunoprofile not typical. Possibility of breast carcinoma should be considered since patient is GATA3+ (full report in patient's chart under pathology) -Radiation oncology (Dr. Lama) has been consulted for palliative radiation. -Patient underwent radiation planning session on 01/21 and has undergone initial palliative treatment session on 01/22 and 01/23 (specifically treating T5, L3, and L4); third session scheduled for 01/24. Plan for 5 total sessions. -At this time, any radiation treatment to left humerus will be deferred until patient can be evaluated again by his tumor orthopedic physician in [place]. -Patient was switched to DNR/DNI 01/20 #Infected chronic sinus draining abdominal wounds with sinus tract and sacral decubitus ulcers. -Patient initially had operation in [place] in 2011 and has chronic wounds along incision lines -abdominal wound cultures grew strep agalactiae, Enterococcus faecalis, and staph aureus -Due to still elevated white count (10.8 on 01/22), Zosyn was renewed on 01/22 -Patient completed 10 days of Zosyn (). Infectious disease service switched patient over to Augmentin for a total of 5 days (), and is subsequently signed off. Hospitalist service appreciates Dr. Hope's involvement. -Dr. Shaw of general surgery did a bedside debridement on 01/21. Hydrofera Blue dressings in place. -Dr. Shaw evaluated the patient again on 01/24 and explained to patient that it we will be a long process of healing. -Hospitalist service continues to appreciate further recommendations and insights from the general surgery service. -continue with Vashe x15 minutes and Hydrofera Blue application with foam dressing. Offloading frequently. -Consideration for wound care consultation should wounds worsen. #A. fib with RVR, resolved -Patient developed A. fib with RVR 01/19 and was subsequently started on Eliquis 5 mg twice a day. -Patient subsequently converted to sinus rhythm after 3 doses of digoxin. Per recommendation of cardiology, patient was switched to 0.125 digoxin daily on 01/22 and will likely require chronic digoxin administration. Continue with Lopressor 25 mg every 8 hours orally -Heart rate has remained well controlled over the past day and a half. Pa tient's pressures are softer but still normotensive. -An echocardiogram done on 01/19 (EF 75%, borderline LVH, left atrial enlargement, moderate pulmonary hypertension, mild aortic valve sclerosis and very mild tricuspid valve insufficiency, with no pericardial effusion or intracardiac mass). -TSH wnl -Negative trops x2. CTA was negative for PE. -Cardiology service (Dr. Frias) has been consulted; appreciate their continued involvement and recommendations. -Per medical oncology, there is not a significant bleeding risk posed to administering radiation with concurrent Eliquis. #Left humeral pathologic fracture -Patient had been following with orthopedic tumor oncologist Dr. Solitario in [place] and had a plan 01/16 surgery which was deferred due to this admission. -Upon decision of goals of care and discharge from hospital, patient can follow- up with the tumor oncology orthopedic surgeon in [place]. -Patient is to continue with left upper extremity splint for pain control. -Dr. Damon, orthopedic surgery on consultation; no concerns for acute fractures, compartment syndrome, or issues with perfusion; plan for outpatient follow up with Orthopedist in [place] -Interval humerus x-ray on 01/22 showed no evidence of displacement. There was a periosteal reaction seen at site of fracture; findings discussed with Dr. Damon who continues to follow along. #Eyd-meoivip-ezojuwbjg diabetes mellitus type 2 -Patient's sugars have improved slightly since adding 5 units of Levemir bid on 01/22 Continue with sliding scale insulin before meals and at night -Continue with hypoglycemic protocol -Holding home Metformin and glimepiride. #History of hypertension -Pressures softer this morning but still normotensive at 111/58 -Home losartan was initially held in the setting of SHELBY and then remained held in the setting of hypotension. #Nonocclusive left popliteal vein thrombus -Patient was started on 01/19 with Eliquis 5 mg twice a day for new onset A. fib with RVR. #Overall conditioning -Once patient returned to PCU status, PT/OT orders were renewed -Incentive spirometry also was ordered on 01/23 in the setting of patient's limited mobility with course, rhonchorous breath sounds #DVT prophylaxis: - Patient is on Eliquis for new onset A. fib and also has a nonocclusive thrombus CODE STATUS: - DNR/DNI Disposition: -Pending palliative radiation treatments and ultimate decision on goals of care. Patient's Marilin approved on 01/20 to come and visit patient due to his status. VS[facility] I&O[facility] Sign[facility]/I&O Vital Signs Date Time Temp Pulse Resp B/P (MAP) Pulse Ox O2 Delivery O2 Flow Rate FiO2 01/24/21 12:29 20 Room Air 01/24/21 12:00 97.6 86 100/60 (73) 96 01/22/21 04:45 2.0 I&O- Last 24 Hours up to 6 AM 01/24/21 06:00 Intake Total 1290 ml Output Total 1850 ml Balance -560 ml Laboratory Data 24H LABS Laboratory Tests 2 01/23/21 18:04: Bedside Glucose (Misc Panel) 277H 01/23/21 20:14: Bedside Glucose (Misc Panel) 261H 01/24/21 03:16: Immature Granulocyte % (Auto) 0.9, Neutrophils (%) (Auto) 83.4H, Lymphocytes (%) (Auto) 9.1L, Monocytes (%) (Auto) 4.6, Eosinophils (%) (Auto) 1.8, Basophils (%) (Auto) 0.2, Neutrophils # (Auto) 10.7H, Lymphocytes # (Auto) 1.2L, Monocytes # (Auto) 0.6, Eosinophils # (Auto) 0.2, Basophils # (Auto) 0.0, Nucleated Red Blood Cells % (auto) 0.0, Anion Gap 8, Glomerular Filtration Rate > 60.0, Calcium Level 8.5L, Magnesium Level 1.9, Total Bilirubin 0.2, Aspartate Amino Transf (AST/SGOT) 14, Alanine Aminotransferase (ALT/SGPT) 13, Alkaline Phosphatase 80, Total Protein 6.0L, Albumin 1.5L, Albumin/Globulin Ratio 0.3 01/24/21 12:17: Bedside Glucose (Misc Panel) 280H CBC/BMP Laboratory Tests 01/24/21 03:16 Microbiology Microbiology 01/20/21 Blood Culture - Preliminary, Resulted No Growth after 72 hours. All specime... 01/20/21 Blood Culture - Preliminary, Resulted No Growth after 72 hours. All specime... 01/14/21 Blood Culture - Final, Complete NO GROWTH AFTER 5 DAYS 01/14/21 Blood Culture - Final, Complete NO GROWTH AFTER 5 DAYS GME ATTESTATION GME ATTESTATION My faculty preceptor for this patient encounter was physically present during the encounter and was fully available. All aspects of the patient interview, examination, medical decision making process, and medical care plan development were reviewed and approved by the faculty preceptor. The faculty preceptor is aware and concurs with the plan as stated in the body of this note and will attest to such by his/her cosignature. ATTENDING NOTE I, Justin De Leon, have independently examined this patient and performed my own physical exam, as well as reviewed the documentation and edited where necessary. I have discussed in detail with the resident / student the findings and plan of treatment as documented by the resident / student and edited their note. I agree with their findings and treatment plan and have edited their documentation. I will continue to follow the patient during this hospital stay. JOSE ANGEL PERDOMO D.O. Jan 24, 2021 15:35 JUSTIN DE LEON MD Jan 24, 2021 18:13
[2021-01-24 16:00] VITALS: BP 100/61
[2021-01-24 20:00] VITALS: BP 98/60
[2021-01-25] VITALS: BP 98/56
[2021-01-25] MEDS: METOPROLOL TART 25 MG TABLET PO SCH ×3 (02:12→17:23)
[2021-01-25] MEDS: ANEXSIA, NORCO 7.5MG/325MG TABLET(HYDROCODONE/APAP) PO PRN ×4 (02:16→20:56)
[2021-01-25 04:00] VITALS: BP 88/53
[2021-01-25] MEDS: APIXABAN 5 MG TAB (ELIQUIS) PO SCH ×2 (05:09→17:30)
[2021-01-25 05:28] VITALS: BP 98/56
[2021-01-25 06:01] LABS: BASO % 0.1 % (0.0-1.0); EOS # 0.2 10^3/uL (0.0-0.5); EOS % 1.7 % (0.0-3.0); HEMATOCRIT 28.9 % (42.0-52.0); HEMOGLOBIN 8.6 g/dl (13.5-17.5); LYMPH # 0.9 10^3/uL (1.5-5.0); LYMPH % 8.9 % (24.0-44.0); MEAN CORPUSCULAR HGB CONC 29.8 g/dl (32.0-36.5); MEAN CORPUSCULAR VOLUME 90.9 fl (80.0-96.0); MONO # 0.5 10^3/uL (0.0-0.8); MONO % 4.5 % (2.0-8.0); NEUTROPHILS # 8.6 10^3/uL (1.5-8.5); NEUTROPHILS % 83.5 % (36.0-66.0); PLATELET COUNT, AUTOMATED 359 10^3/uL (150-450); RED BLOOD COUNT 3.18 10^6/uL (4.30-6.10); WHITE BLOOD COUNT 10.4 10^3/uL (4.0-10.0)
[2021-01-25 06:34] LABS: ALBUMIN 1.5 GM/DL (3.2-5.2); ALT/SGPT 13 U/L (12-78); BILIRUBIN,TOTAL 0.3 MG/DL (0.2-1.0); BLOOD UREA NITROGEN 23 MG/DL (7-18); CALCIUM LEVEL 8.5 MG/DL (8.8-10.2); CARBON DIOXIDE LEVEL 27 MEQ/L (21-32); CHLORIDE LEVEL 103 MEQ/L (98-107); CREATININE FOR GFR 0.72 MG/DL (0.70-1.30); GLOMERULAR FILTRATION RATE > 60.0 (>42); GLUCOSE, FASTING 239 MG/DL (70-100); MAGNESIUM LEVEL 2.2 MG/DL (1.8-2.4); POTASSIUM SERUM 4.3 MEQ/L (3.5-5.1); SODIUM LEVEL 138 MEQ/L (136-145); TOTAL PROTEIN 5.9 GM/DL (6.4-8.2)
[2021-01-25 08:00] VITALS: BP_SYST 102; BP_DIAS 59; BP_DIAS 62
[2021-01-25 08:29] LABS: DIGOXIN LEVEL 0.9 NG/ML (0.5-2.0)
[2021-01-25] MEDS: HumaLOG INSULIN (NovoLOG) PER UNIT SC SCH ×4 (09:10→20:49)
[2021-01-25] MEDS: AUGMENTIN 875 MG TAB PO SCH ×2 (09:11→20:46)
[2021-01-25] MEDS: LEVEMIR (INSULIN DETEMIR) 1 UNITS/0.01ML SC SCH ×2 (09:11→20:49)
[2021-01-25] MEDS: ASPIRIN 81MG ENTERIC TABLET PO SCH (09:11)
[2021-01-25] MEDS: DIGOXIN 0.125 MG TAB PO SCH (09:12)
[2021-01-25 12:00] VITALS: BP 93/55
--- NOTE | 2021-01-25 12:41 | IPNPDOC ---
Date Seen The patient was seen on 01/25/21. Progress Note SUBJECTIVE: Lazaro was seen and examined this morning by the hospital service while lying upright in bed. He was in the midst of eating breakfast. He continues to have a good appetite and is eating and drinking without any issues. He completed his third session of palliative radiation yesterday and is unsure if he has had significant improvement in his pain. He feels his mood is a bit more improved from yesterday. He continues to report some mild to moderate pleuritic chest pain that is unchanged from previous days. Patient reports he resumed working with physical therapy yesterday. He denies any significant current or overnight fever, chills, night sweats, chest pain, chest pressure, palpitations, shortness of breath, abdominal pain/nausea/vomiting. OBJECTIVE PHYSICAL EXAMINATION: VITAL SIGNS: Please see below. GENERAL: Pleasant male lying upright in bed. Mood is improved from yesterday's exam. NAD. He is eating breakfast when we entered the room. HEENT: Normocephalic, atraumatic. Noninjected, anicteric sclera. Wearing eyeglasses. Oral cavity: No pharyngeal erythema or exudate appreciated. MMM. CARDIOVASCULAR: Regular rate, regular rhythm. Normal S1, S2. No significant murmurs appreciated. RESPIRATORY: Breathing room air with symmetric chest expansion. Diminished tidal volume with fair air entry bilaterally. There continue to be some coarse of breath sounds in bilateral bases. Due to limited auscultation (anteriorly and laterally) due to patient's deconditioning and diminished respiratory effort, give focal to appreciate further for adventitious breath sounds. ABDOMINAL: Soft, nondistended and nontender. Large bandage in place over abdomen, when removed smaller Hydrofera Blue dressings in place over incisional abdominal wounds. There continues to be a thin film of purulent material overlying both wounds with some mild drainage. There has not been much change in his wounds this week, with little in the way of signs pointing to improved healing. There is no surrounding tenderness. Normoactive bowel sounds throughout. No guarding or rigidity appreciated. Genitourinary: Zamarripa catheter remains in place draining light yellow-colored urine. EXTREMITIES: Splint with bk wrap remains in place over left upper extremity. 2+ right radial and b/l popliteal pulses. Bilateral onychomycosis. NEUROLOGICAL: No gross focal neurologic deficits appreciated. Nondysarthric speech. PSYCHOLOGICAL: Improved mood today. Affect appears appropriate. Echocardiogram: Was completed on 01/19/2021 and ordered in the setting of the new onset A. fib w ith RVR: ImpressionEF 75%, underlying atrial fibrillation converting to sinus rhythm then reverting back to atrial fibrillation during the study. Borderline LVH, left atrial enlargement, moderate pulmonary hypertension, mild aortic valve sclerosis and very mild tricuspid valve insufficiency, with no pericardial effusion or intracardiac mass. MRI Lumbar spine wo contrast (01/14/21): IMPRESSION: Metastatic lesions involving the L3 and L4 vertebrae with the L4 lesion posterior element involvement extending slightly into the posterior spinal canal without conus compression. No acute pathologic fracture. Severe spinal canal stenosis and foraminal stenoses of degenerative type L2-L3 and L3-L4 particularly and severe bilateral degenerative foraminal stenosis at L4-L5. MRI thoracic spine wo contrast (01/14/21): IMPRESSION: Thoracic spinal cord compression at the T4 level secondary to an infiltrative vertebral lesion involving the vertebral body and posterior elements, with left paraspinous extension. Pathologic vertebral lesions at the T4 and T9 levels as well without spinal cord compression at those levels MRI w contrast L humerus (01/14/21): IMPRESSION: Non expansile mid diaphyseal humeral lesion measuring 13 cm in length, with pathologic fracture through the midportion. No identifiable soft tissue mass or soft tissue infiltrative process ASSESSMENT AND PLAN: This is a 70-year-old male with notable h/o right leg DVT (1988), hypertension, type 2 diabetes, and fracture of left humerus (s/p splinting) who initially presented on 01/12/2021 with weakness after a fall and was admitted to the ICU for hypotension, acute kidney injury, and sepsis most likely from abdominal wounds. Responded to IV fluid resuscitation and wound culture grew strep agalactiae, staph aureus, and Enterococcus faecalis. Subsequent image work-up revealed numerous metastatic lesions (left humerus, ribs, sternum, thoracic spine, lumbar spine) with vertebral biopsy showing poorly differentiated malignancy. Developed A. fib with RVR on 01/19 and started on Eliquis 5 mg twice daily. Patient was switched to DNR/DNI status on 01/20/2021, and then transferred over to alternate level of care status on 01/25/2021. #Widely metastatic malignancy with unknown primary -Metastatic lesion seen in thoracic spine, lumbar spine, left humerus, ribs, and sternum on imaging (please see imaging impressions above); pathologic fracture of left humerus. -At this point, primary source of malignancy is unknown but thought to most likely be multiple myeloma. -Medical oncology has been consulted (Dr. Deshpande). -CEA and alpha-fetoprotein were ordered and unremarkable. -PSA was 5.2 which was similar to recent outpatient PSA of 5.3 making prostate as a source less likely. -Mild elevation of beta hCG. -SPEP: Atypical shape of gamma region was noted with inability to definitively determine presence of atypical bands with 6-9-month follow-up suggested. No comment on distinct M spike; kappa and lambda elevated at 67.9 and 50.4, respectively. -At this time, multiple myeloma cannot be ruled out in his leading etiology for primary source. -L4 biopsy was poorly differentiated malignancy on pathology correlating with a poor prognosis; Bx slide and block was sent to [facility] for immunohistochemical work up -No definite primary source could be identified on [facility] work-up; urothelial carcinoma listed as possibility, but immunoprofile not typical. Possibility of breast carcinoma should be considered since patient is GATA3+ (full report in patient's chart under pathology) -Radiation oncology (Dr. Lama) has been consulted for palliative radiation. -Patient underwent radiation planning session on 01/21 and has undergone palliative treatment session on 01/22, 01/23, 01/24 (specifically treating T5, L3, and L4); Plan is for 5 total sessions (to likely resume on 01/27 following the weekend). -At this time, any radiation treatment to left humerus will be deferred until patient can be evaluated again by his tumor orthopedic physician in [place]. -Patient was switched to DNR/DNI 01/20 #Infected chronic sinus draining abdominal wounds with sinus tract and sacral decubitus ulcers. -Patient initially had operation in [place] in 2011 and has chronic wounds along incision lines -abdominal wound cultures grew strep agalactiae, Enterococcus faecalis, and staph aureus -Patient completed 10 days of Zosyn (). Infectious disease service switched patient over to Augmentin for a total of 5 days (), and has subsequently signed off. -Hospitalist service appreciates Dr. Hope's involvement. -Dr. Shaw of general surgery did a bedside debridement on 01/21. Hydrofera Blue dressings in place. -Dr. Shaw evaluated the patient again on 01/24 and explained that it we will be a long process of healing. -Hospitalist service continues to appreciate further recommendations and insights from the general surgery service. -continue with Vashe x15 minutes and Hydrofera Blue application with foam dressing. Offloading frequently. -Consideration for wound care consultation should wounds worsen. #A. fib with RVR, resolved -Patient developed A. fib with RVR 01/19 and was subsequently started on Eliquis 5 mg twice a day. -Patient subsequently converted to sinus rhythm after 3 doses of digoxin. Per recommendation of cardiology, patient was switched to 0.125 digoxin daily on 01/22 and will likely require chronic digoxin administration. Continue with Lopressor 25 mg every 8 hours orally -2 separate digoxin levels were WNL during this admission. -Heart rate has remained well controlled over the past day and a half. Patient's pressures are softer but still normotensive. -An echocardiogram done on 01/19 (EF 75%, borderline LVH, left atrial enlargement, moderate pulmonary hypertension, mild aortic valve sclerosis and very mild tricuspid valve insufficiency, with no pericardial effusion or intracardiac mass). -TSH wnl -Negative trops x2. CTA was negative for PE. -Cardiology service (Dr. Frias) has been consulted; appreciate their continued involvement and recommendations. -Per medical oncology, there is not a significant bleeding risk posed to administering radiation with concurrent Eliquis. #Left humeral pathologic fracture -Patient had been following with orthopedic tumor oncologist Dr. Solitario in [place] and had a plan 01/16 surgery which was deferred due to this admission. -Upon decision of goals of care and discharge from hospital, patient can follow- up with the tumor oncology orthopedic surgeon in [place]. -Patient is to continue with left upper extremity splint for pain control. -Dr. Damon, orthopedic surgery on consultation; no concerns for acute fractures, compartment syndrome, or issues with perfusion; plan for outpatient follow up with Orthopedist in [place] -Interval humerus x-ray on 01/22 showed no evidence of displacement. There was a periosteal reaction seen at site of fracture; findings discussed with Dr. Damon who continues to follow along. #Adk-hnvidvw-lxfihdyiv diabetes mellitus type 2 -Patient's sugars have improved slightly since adding 5 units of Levemir bid on 01/22; they continue to run in the 230s and greater on a.m. labs and in the 250s to 260s on fingersticks. -As a result, Levemir dosing switched on 01/25 to 10 units bid sc; we will continue to assess sugars and adjust as needed with goal range to be in the upper 100s to low 200s while inpatient. Continue with sliding scale insulin before meals and at night -Continue with hypoglycemic protocol -Holding home Metformin and glimepiride. #Normocytic hypochromic anemia, stable -On review of records, patient has had anemia on labs dating back nearly a month and a half -Hemoglobin has been relatively stable but slightly decreasing during this admission -Continue to monitor on repeat CBCs and a type and screen has been ordered. -There are no acute areas of bleeding noticed, but patient had been receiving fluid with IV antibiotics for 10 days of each could be contributing to some delusional component. #History of hypertension -Pressures continue to run softer but maps consistently above 65 and patient is asymptomatic and tolerating good p.o. intake; continue to monitor -Home losartan was initially held in the setting of SHELBY and then remained held in the setting of hypotension. #Nonocclusive left popliteal vein thrombus -Patient was started on 01/19 with Eliquis 5 mg twice a day for new onset A. fib with RVR. #Overall conditioning -Patient has significant skeletal pain related to widespread metastases with l imited baseline mobility; once patient returned to PCU status, PT/OT orders were renewed -PT worked with patient on 01/24, moving him in bed and getting him to sit on the edge of the bed; current recommendation is for continued rehabilitation after discharge and for a rolling walker at home. -Incentive spirometry ordered on 01/23 in the setting of patient's limited mobility with course, rhonchorous breath sounds #DVT prophylaxis: - Patient is on Eliquis for new onset A. fib and also has a nonocclusive thrombus CODE STATUS: - DNR/DNI Disposition: -Overall poor prognosis due to the widespread metastases and biopsy proven poorly differentiated malignancy; pending ongoing palliative radiation treatments and ultimate decision on goals of care. - As patient is now on oral antibiotics and been stable for the past few days, patient was switched on 01/25 to alternate level of care (ALC) status. - Patient's Marilin approved on 01/20 to come and visit patient due to his status. VS, I&O, 24H, Fishbone Vital Signs/I&O Vital Signs Date Time Temp Pulse Resp B/P (MAP) Pulse Ox O2 Delivery O2 Flow Rate FiO2 01/25/21 12:00 97.9 82 18 93/55 (68) 95 Room Air 01/24/21 20:57 2.0 I&O- Last 24 Hours up to 6 AM 01/25/21 06:00 Intake Total 1120 ml Output Total 1850 ml Balance -730 ml Laboratory Data 24H LABS Laboratory Tests 2 01/24/21 16:40: Bedside Glucose (Misc Panel) 191H 01/24/21 19:54: Bedside Glucose (Misc Panel) 243H 01/25/21 05:15: Bedside Glucose (Misc Panel) 202H 01/25/21 05:42: Immature Granulocyte % (Auto) 1.3, Neutrophils (%) (Auto) 83.5H, Lymphocytes (%) (Auto) 8.9L, Monocytes (%) (Auto) 4.5, Eosinophils (%) (Auto) 1.7, Basophils (%) (Auto) 0.1, Neutrophils # (Auto) 8.6H, Lymphocytes # (Auto) 0.9L, Monocytes # (Auto) 0.5, Eosinophils # (Auto) 0.2, Basophils # (Auto) 0.0, Nucleated Red Blood Cells % (auto) 0.0, Anion Gap 8, Glomerular Filtration Rate > 60.0, Calcium Level 8.5L, Magnesium Level 2.2, Total Bilirubin 0.3, Aspartate Amino Transf (AST/SGOT) 13, Alanine Aminotransferase (ALT/SGPT) 13, Alkaline Phosphatase 76, Total Protein 5.9L, Albumin 1.5L, Albumin/Globulin Ratio 0.3, Digoxin Level 0.9 01/25/21 07:08: Lactic Acid Level 1.4 01/25/21 11:22: Bedside Glucose (Misc Panel) 269H CBC/BMP Laboratory Tests 01/25/21 05:42 Microbiology Microbiology 01/20/21 Blood Culture - Final, Complete NO GROWTH AFTER 5 DAYS 01/20/21 Blood Culture - Final, Complete NO GROWTH AFTER 5 DAYS GME ATTESTATION GME ATTESTATION My faculty preceptor for this patient encounter was physically present during the encounter and was fully available. All aspects of the patient interview, examination, medical decision making process, and medical care plan development were reviewed and approved by the faculty preceptor. The faculty preceptor is aware and concurs with the plan as stated in the body of this note and will attest to such by his/her cosignature. ATTENDING NOTE I, Justin De Leon, have independently examined this patient and performed my own physical exam, as well as reviewed the documentation and edited where necessary. I have discussed in detail with the resident / student the findings and plan of treatment as documented by the resident / student and edited their note. I agree with their findings and treatment plan and have edited their documentation. I wi ll continue to follow the patient during this hospital stay. JOSE ANGEL PERDOMO D.O. Jan 25, 2021 12:41 JUSTIN DE LEON MD Jan 25, 2021 16:01
[2021-01-25 20:00] VITALS: BP 110/60
[2021-01-26 01:31] VITALS: BP 108/67
[2021-01-26] MEDS: METOPROLOL TART 25 MG TABLET PO SCH ×3 (01:45→17:28)
[2021-01-26 05:14] LABS: BASO % 0.2 % (0.0-1.0); EOS # 0.2 10^3/uL (0.0-0.5); EOS % 1.5 % (0.0-3.0); HEMATOCRIT 29.3 % (42.0-52.0); HEMOGLOBIN 8.8 g/dl (13.5-17.5); LYMPH % 8.4 % (24.0-44.0); MEAN CORPUSCULAR HEMOGLOBIN 26.9 pg (27.0-33.0); MEAN CORPUSCULAR VOLUME 89.6 fl (80.0-96.0); MONO # 0.5 10^3/uL (0.0-0.8); MONO % 4.6 % (2.0-8.0); NEUTROPHILS # 9.6 10^3/uL (1.5-8.5); NEUTROPHILS % 84.5 % (36.0-66.0); PLATELET COUNT, AUTOMATED 393 10^3/uL (150-450); RED BLOOD COUNT 3.27 10^6/uL (4.30-6.10); WHITE BLOOD COUNT 11.3 10^3/uL (4.0-10.0)
[2021-01-26] MEDS: APIXABAN 5 MG TAB (ELIQUIS) PO SCH ×2 (05:32→17:27)
[2021-01-26 05:43] LABS: ALBUMIN 1.6 GM/DL (3.2-5.2); ALT/SGPT 12 U/L (12-78); BILIRUBIN,TOTAL 0.3 MG/DL (0.2-1.0); BLOOD UREA NITROGEN 20 MG/DL (7-18); CALCIUM LEVEL 8.5 MG/DL (8.8-10.2); CARBON DIOXIDE LEVEL 27 MEQ/L (21-32); CHLORIDE LEVEL 103 MEQ/L (98-107); CREATININE FOR GFR 0.71 MG/DL (0.70-1.30); GLOMERULAR FILTRATION RATE > 60.0 (>42); GLUCOSE, FASTING 219 MG/DL (70-100); MAGNESIUM LEVEL 1.9 MG/DL (1.8-2.4); POTASSIUM SERUM 4.5 MEQ/L (3.5-5.1); SODIUM LEVEL 138 MEQ/L (136-145); TOTAL PROTEIN 6.1 GM/DL (6.4-8.2)
[2021-01-26 08:00] VITALS: BP 116/66
[2021-01-26] MEDS: LEVEMIR (INSULIN DETEMIR) 1 UNITS/0.01ML SC SCH ×2 (08:35→20:59)
[2021-01-26] MEDS: ASPIRIN 81MG ENTERIC TABLET PO SCH (08:36)
[2021-01-26] MEDS: HumaLOG INSULIN (NovoLOG) PER UNIT SC SCH ×4 (08:36→20:59)
[2021-01-26] MEDS: AUGMENTIN 875 MG TAB PO SCH ×2 (08:36→20:59)
[2021-01-26] MEDS: DIGOXIN 0.125 MG TAB PO SCH (08:37)
[2021-01-26] MEDS: ANEXSIA, NORCO 7.5MG/325MG TABLET(HYDROCODONE/APAP) PO PRN ×2 (11:39→17:27)
[2021-01-27] MEDS: ANEXSIA, NORCO 7.5MG/325MG TABLET(HYDROCODONE/APAP) PO PRN ×4 (00:26→20:14)
[2021-01-27] MEDS: METOPROLOL TART 25 MG TABLET PO SCH ×3 (02:00→17:55)
[2021-01-27] MEDS: APIXABAN 5 MG TAB (ELIQUIS) PO SCH ×2 (05:15→17:55)
[2021-01-27 07:03] VITALS: BP 97/59
[2021-01-27] MEDS: HumaLOG INSULIN (NovoLOG) PER UNIT SC SCH ×3 (08:59→17:30)
[2021-01-27] MEDS: LEVEMIR (INSULIN DETEMIR) 1 UNITS/0.01ML SC SCH (08:59)
[2021-01-27] MEDS: ASPIRIN 81MG ENTERIC TABLET PO SCH (09:04)
[2021-01-27] MEDS: DIGOXIN 0.125 MG TAB PO SCH (09:04)
[2021-01-27] MEDS: AUGMENTIN 875 MG TAB PO SCH ×2 (09:04→20:15)
[2021-01-27 09:30] LABS: BASO % 0.4 % (0.0-1.0); EOS # 0.2 10^3/uL (0.0-0.5); EOS % 1.8 % (0.0-3.0); HEMATOCRIT 30.8 % (42.0-52.0); HEMOGLOBIN 9.3 g/dl (13.5-17.5); LYMPH # 0.9 10^3/uL (1.5-5.0); LYMPH % 8.8 % (24.0-44.0); MEAN CORPUSCULAR HEMOGLOBIN 27.2 pg (27.0-33.0); MEAN CORPUSCULAR HGB CONC 30.2 g/dl (32.0-36.5); MEAN CORPUSCULAR VOLUME 90.1 fl (80.0-96.0); MONO # 0.6 10^3/uL (0.0-0.8); MONO % 5.3 % (2.0-8.0); NEUTROPHILS # 8.5 10^3/uL (1.5-8.5); NEUTROPHILS % 82.3 % (36.0-66.0); PLATELET COUNT, AUTOMATED 399 10^3/uL (150-450); RED BLOOD COUNT 3.42 10^6/uL (4.30-6.10); WHITE BLOOD COUNT 10.4 10^3/uL (4.0-10.0)
[2021-01-27 10:07] LABS: ALBUMIN 1.6 GM/DL (3.2-5.2); ALT/SGPT 14 U/L (12-78); BILIRUBIN,TOTAL 0.4 MG/DL (0.2-1.0); BLOOD UREA NITROGEN 20 MG/DL (7-18); CALCIUM LEVEL 8.9 MG/DL (8.8-10.2); CARBON DIOXIDE LEVEL 27 MEQ/L (21-32); CHLORIDE LEVEL 102 MEQ/L (98-107); CREATININE FOR GFR 0.71 MG/DL (0.70-1.30); GLOMERULAR FILTRATION RATE > 60.0 (>42); GLUCOSE, FASTING 212 MG/DL (70-100); POTASSIUM SERUM 4.7 MEQ/L (3.5-5.1); SODIUM LEVEL 136 MEQ/L (136-145); TOTAL PROTEIN 6.5 GM/DL (6.4-8.2)
[2021-01-27] MEDS ORDERED: NS 500 ML IV ONE (12:20)
[2021-01-27] MEDS ORDERED: SCOPOLAMINE 1MG TRANSDERMAL PATCH TOP PRN (18:10)
--- NOTE | 2021-01-27 18:36 | IPNPDOC ---
Text Note Date of Service The patient was seen on 01/27/21. NOTE Interval update: - I have had an extensive discussion with the patient and his along with his material control supervisor at the bedside - Aliza Whitmore RN was present at the bedside during our conversation - I have informed the patient about his stage IV cancer in his poor prognosis - I have informed him after discussing with oncology, Dr. Deshpande; that he would not be a candidate to receive chemotherapy given his poor functional status - Patient has evidence of stage IV cancer with an unclear primary - It was decided that the patient would like to transition to comfort measures - Nonessential medications were discontinued and medication for comfort alone were instituted - As for radiation therapy, patient reports that he would like to stop that as well - MOLST form was updated to reflect this change VSTip, I+O VSTip, I+O Laboratory Tests 01/27/21 09:16 Vital Signs Date Time Temp Pulse Resp B/P (MAP) Pulse Ox O2 Delivery O2 Flow Rate FiO2 01/27/21 16:00 17 01/27/21 10:00 107 90/58 01/27/21 07:03 99.1 96 Room Air 01/24/21 20:57 2.0 I&O- Last 24 Hours up to 6 AM 01/27/21 06:00 Intake Total 1260 ml Output Total 1650 ml Balance -390 ml NAHID MELENDEZ MD Jan 27, 2021 18:35
[2021-01-28] MEDS: METOPROLOL TART 25 MG TABLET PO SCH ×4 (01:32→18:00)
[2021-01-28] MEDS: ANEXSIA, NORCO 7.5MG/325MG TABLET(HYDROCODONE/APAP) PO PRN ×4 (03:08→19:29)
[2021-01-28] MEDS: MORPHINE 2 MG/ML 1ML VIAL (J2270) IV PRN ×2 (04:42→06:54)
[2021-01-28] MEDS: AUGMENTIN 875 MG TAB PO SCH (07:58)
[2021-01-28] MEDS: DIGOXIN 0.125 MG TAB PO SCH (07:59)
[2021-01-28] MEDS ORDERED: LORazepam 2 MG/ML VIAL As Ordered ONE (10:20)
[2021-01-28] MEDS: LORazepam 2 MG/ML VIAL IV PRN ×2 (10:32→10:40)
--- NOTE | 2021-01-28 11:51 | RADENCPD ---
Date/Time of Encounter Date of Encounter: Jan 28, 2021 Time of Encounter: 11:50 Encounter Note patient's decision to transition to [facility]. Will cancel remaining RT appointments. GANESH TRACY MD Jan 28, 2021 11:51
--- NOTE | 2021-01-28 15:29 | IPNPDOC ---
Text Note Date of Service The patient was seen on 01/28/21. NOTE Received a message that the patient's daughter, Missy wanted updates. Patient reported today that he let Evelin know about his decision, and she was fairly upset. He reported it would be okay to give her updates. An attempt was made to call her at [phone] ([phone]) however there was no answer. VS,Fishbone, I+O VS, Fishbone, I+O Vital Signs Date Time Temp Pulse Resp B/P (MAP) Pulse Ox O2 Delivery O2 Flow Rate FiO2 01/28/21 10:00 120 93/65 01/28/21 07:04 Room Air 01/27/21 16:00 17 01/27/21 07:03 99.1 96 01/24/21 20:57 2.0 I&O- Last 24 Hours up to 6 AM 01/28/21 06:00 Intake Total 1160 ml Output Total 1900 ml Balance -740 ml VINH WILLIAMSON M.D. Jan 28, 2021 15:29
[2021-01-29] MEDS: ANEXSIA, NORCO 7.5MG/325MG TABLET(HYDROCODONE/APAP) PO PRN ×3 (00:45→12:52)
[2021-01-29] MEDS: METOPROLOL TART 25 MG TABLET PO SCH ×3 (01:33→18:00)
[2021-01-29] MEDS: MORPHINE 2 MG/ML 1ML VIAL (J2270) IV PRN (03:34)
[2021-01-29] MEDS: DIGOXIN 0.125 MG TAB PO SCH (09:03)
[2021-01-29] MEDS ORDERED: LORazepam 2 MG/ML VIAL As Ordered ONE (14:22)
[2021-01-29] MEDS: LORazepam 2 MG/ML VIAL IV PRN (14:33)
[2021-01-30] MEDS: METOPROLOL TART 25 MG TABLET PO SCH ×3 (02:00→17:49)
[2021-01-30] MEDS: DIGOXIN 0.125 MG TAB PO SCH (09:45)
[2021-01-30] MEDS: ANEXSIA, NORCO 7.5MG/325MG TABLET(HYDROCODONE/APAP) PO PRN ×2 (09:50→17:49)
--- NOTE | 2021-01-30 19:07 | IPNPDOC ---
Text Note Date of Service The patient was seen on 01/30/21. NOTE Patient's daughter, Missy was updated as per patient's request at 1900. All questions were answered to satisfaction. VS,Fishbone, I+O VS, Fishbone, I+O Vital Signs Date Time Temp Pulse Resp B/P (MAP) Pulse Ox O2 Delivery O2 Flow Rate FiO2 01/30/21 17:49 101 104/69 01/30/21 10:20 16 01/29/21 03:44 Room Air 01/27/21 07:03 99.1 96 01/24/21 20:57 2.0 I&O- Last 24 Hours up to 6 AM 01/30/21 06:00 Intake Total 1481 ml Output Total 1300 ml Balance 181 ml VINH WILLIAMSON M.D. Jan 30, 2021 19:07
[2021-01-31 02:58] VITALS: BP 101/65
[2021-01-31] MEDS: METOPROLOL TART 25 MG TABLET PO SCH ×2 (02:58→10:00)
[2021-01-31] MEDS: ANEXSIA, NORCO 7.5MG/325MG TABLET(HYDROCODONE/APAP) PO PRN ×2 (04:14→08:50)
[2021-01-31] MEDS: DIGOXIN 0.125 MG TAB PO SCH (08:50)
[2021-01-31] MEDS ORDERED: DIGO0.123 PO (11:45)
[2021-01-31] MEDS ORDERED: METO1TAB87 PO (11:45)
[2021-01-31] MEDS ORDERED: ATIV1TAB10 PO ×2 (11:45→12:18)
[2021-01-31] MEDS ORDERED: HYOS125TA PO (11:45)
[2021-01-31] MEDS ORDERED: MORP1SOL5 PO ×2 (11:45→12:16)
--- NOTE | 2021-01-31 20:54 | DS.PDOC ---
Discharge Summary General Date of Admission Jan 12, 2021 at 15:47 Date of Discharge 01/31/21 Discharge Summary DISCHARGE DIAGNOSES: 1. Sepsis 2. Chronic abdominal wound 3. Acute kidney injury 4. Undifferentiated metastatic carcinoma 5. A. fib with rapid ventricular response 6. Osx-porohde-naecnkxsv diabetes mellitus COMPLICATIONS/CHIEF COMPLAINT: Hypotension. HOSPITAL COURSE: 70-year-old male with notable h/o right leg DVT (1988), hypertension, type 2 diabetes, and fracture of left humerus (s/p splinting) who initially presented on 01/12/2021 with weakness after a fall and was admitted to the ICU for hypotension, acute kidney injury, and sepsis most likely from abdominal wounds. Responded to IV fluid resuscitation and wound culture grew strep agalactiae, staph aureus, and Enterococcus faecalis. He underwent debridement on 01/17 of his chronic abdominal wounds. Subsequent image work-up revealed numerous metas tatic lesions (left humerus, ribs, sternum, thoracic spine, lumbar spine) with vertebral biopsy showing poorly differentiated malignancy. Developed A. fib with RVR on 01/19 and started on Eliquis 5 mg twice daily. Patient was switched to DNR/DNI status on 01/20/2021, and then transferred over to alternate level of care status on 01/25/2021. He also had a left humeral pathological fracture. Dr. Damon, of orthopedic surgery was consulted. No acute interventions were deemed necessary at this time. Following a prolonged hospital course, eventually a L4 vertebral lesion biopsy was performed by IR. This showed metastatic poorly differentiated carcinoma. This was discussed with the patient as well as his family. Initially patient had received therapeutic radiation. However, he wanted to stop all treatment and elected for comfort measures. The family including his as well as daughter were in agreement with this plan. 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 DISCHARGE MEDICATIONS: Please see below. ALLERGIES: Please see below. PHYSICAL EXAMINATION ON DISCHARGE: VITAL SIGNS: Please see below. GENERAL: In no acute distress CARDIOVASCULAR EXAMINATION: S1/S2 appreciated, irregularly irregular rhythm, heart rate 90 RESPIRATORY EXAMINATION: Clear to auscultation bilaterally, no crackles, no wheezes ABDOMINAL EXAMINATION: Abdominal wound wrapping was dry, and intact., Nondistended, nontender, bowel sounds present EXTREMITIES: Right arm was casted and elbow was in flexed position, sensation in fingertips intact, radial pulses were palpable NEUROLOGICAL EXAMINATION: Awake, alert, oriented x3 LABORATORY DATA: Please see below. DISCHARGE PLAN: Regular diet DISPOSITION: [facility] Home. ITEMS TO FOLLOWUP ON ON OUTPATIENT: 1. Patient asked to follow-up with hospice physician TIME SPENT ON DISCHARGE: 45 minutes. Vital Signs/I&Os Vital Signs Date Time Temp Pulse Resp B/P (MAP) Pulse Ox O2 Delivery O2 Flow Rate FiO2 01/31/21 08:50 86 01/31/21 04:44 16 Room Air 01/31/21 02:58 101/65 01/27/21 07:03 99.1 96 I&O- Last 24 Hours up to 6 AM 01/31/21 06:00 Intake Total 600 ml Output Total 1250 ml Balance -650 ml Laboratory Data Labs 24H Laboratory Tests 2 01/31/21 09:53: Coronavirus (COVID-19)(PCR) NEGATIVE Discharge Medications Scheduled Digoxin (Digoxin) 125 Mcg Tablet, 0.125 MG PO DAILY Furosemide (Furosemide) 20 Mg Tab, 20 MG PO DAILY, (Reported) Latanoprost/Pf (Latanoprost 0.005% Eye Drop) 7.5 Ml Drops, 1 DROP OU QHS, (Reported) Metformin HCl (Metformin HCl) 1,000 Mg Tab, 1,000 MG PO BID, (Reported) Metoprolol Tartrate (Metoprolol Tartrate) 25 Mg Tablet, 1 TAB PO BID Scheduled PRN Hydrocodone/Acetaminophen (Hydrocodone-Acetamin 7.5-325) 1 Each Tablet, 1 TAB PO Q4H PRN for PAIN LEVEL 5-10, (Reported) Hyoscyamine Sulfate (Hyoscyamine Sulfate) 0.125 Mg Tab.subl, 0.125 MG PO Q4HP PRN for TERMINAL SECRETIONS Use sublingually if unable to swallow Lorazepam (Ativan) 0.5 Mg Tablet, 0.5 MG PO Q6HP PRN for ANXIETY/AGITATION Use sublingually if unable to swallow Morphine Sulfate (Morphine Sulfate) 100 Mg/5 Ml Solution, 0.25 ML PO Q2H PRN for PAIN OR DYSPNEA Use sublingually if unable to swallow Allergies Coded Allergies: No Known Allergies (Unverified , 12/15/20) VINH WILLIAMSON M.D. Jan 31, 2021 20:54
== END 2021-01-31 12:36 | disposition hospice, home (50) | DRG 856 ==
LOC: M ED 12:08 → M ED INP 15:47 → ENRESERV 16:22 → M PCU 18:51 → M MSPAV 01-13 15:16 → M ICU 01-19 16:51 → M PCU 01-22 19:17 → M MSPAV 01-27 19:59
PROVIDERS: ADMIT Family Medicine; ATTEND Internal Medicine
PROC: 0Q903ZX Drainage of Lumbar Vertebra, Percutaneous Approach, Diagnostic (ICD-10-PCS; 2021-01-16)
PROC: 0JB80ZZ Excision of Abdomen Subcutaneous Tissue and Fascia, Open Approach (ICD-10-PCS; principal; 2021-01-17)
DX: T81.49XA Infection following a procedure, other surgical site, initial encounter (principal); A41.9 Sepsis, unspecified organism; R65.20 Severe sepsis without septic shock; N17.9 Acute kidney failure, unspecified; E87.2 Acidosis; M84.422A Pathological fracture, left humerus, initial encounter for fracture; C79.51 Secondary malignant neoplasm of bone; C90.00 Multiple myeloma not having achieved remission; I82.432 Acute embolism and thrombosis of left popliteal vein; I47.1 Supraventricular tachycardia; Z66 Do not resuscitate; Z51.5 Encounter for palliative care; I48.91 Unspecified atrial fibrillation; E11.65 Type 2 diabetes mellitus with hyperglycemia; Z20.822 Contact with and (suspected) exposure to COVID-19; E11.649 Type 2 diabetes mellitus with hypoglycemia without coma; E11.622 Type 2 diabetes mellitus with other skin ulcer; Z79.899 Other long term (current) drug therapy; Z79.84 Long term (current) use of oral hypoglycemic drugs; Z90.49 Acquired absence of other specified parts of digestive tract; Z98.41 Cataract extraction status, right eye; Z98.42 Cataract extraction status, left eye; L98.499 Non-pressure chronic ulcer of skin of other sites with unspecified severity; N43.3 Hydrocele, unspecified; L89.312 Pressure ulcer of right buttock, stage 2; L89.322 Pressure ulcer of left buttock, stage 2

== ENCOUNTER 2021-01-24 14:08 | Outpatient (RCR) | payer OTHER ==
--- NOTE | 2021-01-23 12:39 | IPN ---
PROGRESS NOTE DATE: 01/23/2021 CHIEF COMPLAINT: Left arm swelling, pathologic fracture. HISTORY OF PRESENT ILLNESS: This is a 70-year-old man who has a pathologic left humerus fracture. I was originally consulted on him about a week ago or so. The original consult was for left arm swelling. He is pending fixation by Dr. Marmolejo, a tumor specialist in [place]. Again, the nurse taking care of the patient yesterday at about 4 p.m. called me with concerns of vascular compromise. I responded that she should consult vascular surgery on an emergent basis if there is concerns for loss of radial pulse. She then changed what she was saying and stated that actually the patient did not have concerns with radial pulse, actually her concern was with swelling. She deemed this an emergency, therefore I stated that she should contact the surgeon construction recruiter if this is an orthopaedic emergency. At which point, she stated that Dr. Ndiaye had refused to see the patient. I was in contact with Dr. De Leon, who is the hospitalist looking after the patient, we had been in contact multiple times throughout this man's course. I had also asked the nurse that if she is concerned with swelling to use bandage dalton to remove the Georgi bandages holding the splint in place. She asked me if I could put in a verbal order and I stated that, yes, she could do that, and that I would be seeing the patient within the next 24 hours as this was not an orthopaedic emergency, I both communicated that to the nurse that called me at 4 p.m., as well as to Dr. De Leon shortly thereafter. PHYSICAL EXAMINATION: I saw the patient this morning at 7 a.m., [id number]. He appears comfortable. The splint is still in situ. There is minimal swelling, in fact it appears a little bit better even than when I saw him last time. There is a little bit of prominence anteriorly at the fracture site. Hand is warm and well-perfused. Strong radial pulse. Normal median, radial, and ulnar nerves, as well as an anterior interosseous nerve/posterior interosseous nerve (AIN/PIN), motor and sensory function. Re-x-ray obtained on 01/22/2021 at 1611 hours demonstrates periosteal reaction seen at the site of the known pathologic midshaft humerus fracture nondisplaced. ASSESSMENT AND PLAN: This 70-year-old man with left humerus pathologic fracture is appropriately splinted. I see no signs of acute vascular compromise or compartment syndrome. He has some mild swelling on the hand. The plan should remain the same as before and if there is sign of vascular compromise this suggests vascular surgery, and if there is an emergent surgical issue this would be the surgeon construction recruiter, otherwise I will not follow this patient. I have let Dr. De Leon know that as well. [id number]
[~2021-01-24 14:08] MED LIST changes: +ASPI-1 PO; +HYDR-3716 PO; +LATA0.0015 OU
[2021-01-31] MEDS ORDERED: DIGO0.123 PO (11:45)
[2021-01-31] MEDS ORDERED: METO1TAB87 PO (11:45)
[2021-01-31] MEDS ORDERED: HYOS125TA PO (11:45)
[2021-01-31] MEDS ORDERED: ATIV1TAB10 PO ×2 (11:45→12:18)
[2021-01-31] MEDS ORDERED: MORP1SOL5 PO ×2 (11:45→12:16)
== END 2021-01-30 ==
LOC: M ONCR 14:08
PROVIDERS: ATTEND General Practice
DX: C90.00 Multiple myeloma not having achieved remission (principal); M84.422A Pathological fracture, left humerus, initial encounter for fracture